=== PATIENT | female | born 1935 | race Caucasian/White ===

== ENCOUNTER 2017-01-27 10:54 | Observation (INO) ==
[2017-01-27] MEDS ORDERED: SODIUM CHLORIDE 0.9% 1,000 ML IV SCH (11:30)
[2017-01-27 11:37] LABS: Basophils % 0.5 % (0.0-0.8); Eosinophils # 0.3 10*3/uL (0.0-0.87); Eosinophils % 4.7 % (0.00-10.9); Hematocrit 44.5 VOL% (35.7-47.0); Hemoglobin 14.7 GM/DL (12.0-16.0); Immature Granulocytes % 0.3 %; Immature Granulocytes Absolute 0.02 #; Lymphocytes # 1.9 10*3/uL (1.4-4.0); Lymphocytes % 27.9 % (21.3-54.2); Mean Corpuscular Hemoglobin 31 PG (27-34); Mean Corpuscular Volume 94.1 FL (87-102); Mean Platelet Volume 8.6 FL (9.6-12.0); Monocytes # 0.5 10*3/uL (0.11-0.8); Monocytes % 6.9 % (1.7-12.7); Neutrophils % 59.7 % (38.7-73.9); Platelet Count 208 T/CUMM (130-400); Red Blood Count 4.73 MC/CUMM (3.8-5.5); White Blood Count 6.6 T/CUMM (4-12)
[2017-01-27 11:55] LABS: PT Patient Result 10.2 SECS
--- NOTE | 2017-01-27 12:26 | History and Physical Update ---
History and Physical Update - Physical Exam Mental Status: alert and oriented Heart: regular rate and rhythm Lung: clear to auscultation Abdomen: within normal limits Vitals: within normal limits History and Physical Changes: Patient is an 81-year-old female with dementia who requires gastrostomy tube feeding for nutritional support. Her current PEG tube has continued to leak from the gastrostomy site with no sign of infection. We replaced her PEG tube with a larger tube and it continues to leak. I have offered PEG placement at a different location given persistent drainage from this.
[2017-01-27] MEDS ORDERED: CIPROFLOXACIN INJ 400 MG in PREMIX 1 EACH IV ONE (12:30)
--- NOTE | 2017-01-27 12:46 | Operative Note ---
Date of procedure: 01/27/17 Pre-op diagnosis: Inability to eat, dementia Procedure: Procedure: Esophagogastroduodenoscopy with percutaneous endoscopic gastrostomy placement Brief clinical abstract: Patient is an 81-year-old female with dementia and previous CVA. She requires gastrostomy tube feedings for nutritional support. She has had persistent leakage at her PEG tube site with no sign of infection. We changed to a larger sized 24 Prydeinig tube but drainage has persisted. I have offered changing site to a different location and family agrees. Indication for procedure: Inability to eat, gastrocutaneous fistula drainage Endoscopic findings:[After informed consent was obtained, the patient was placed in the left lateral decubitus position. The internal balloon of the previous PEG tube was deflated and tube removed. The gastroscope was inserted in the upper esophagus under direct vision with no resistance encountered. Esophageal mucosa appeared normal with squamocolumnar junction sharply demarcated at the diaphragmatic indentation. The endoscope was advanced in the stomach which was carefully examined including retroflexed view of the cardia and fundus with no abnormality other than site of previous PEG tube noted. The pyloric channel, duodenal bulb, second and third portion of the duodenum appeared normal. The endoscope was withdrawn back into the stomach. Site for gastrostomy tube in a different location was determined using external indentation and endoscopic transillumination. This was to the left of the previous site. Sterile field was created over the anterior abdomen at that location. 5 cc of 1% lidocaine was injected subcutaneously down the level of the gastric wall. An approximately 5 mm superficial transverse incision was made with scalpel. Cook 20 Prydeinig gastrostomy tube was placed with pull technique without difficulty. Tube was secured with the external bumper at the 2 cm dylan on the skin surface. A dressing was applied to the new PEG tube site as well as the old site. She appeared to tolerate the procedure well. Impression: #1 status post percutaneous endoscopic gastrostomy tube placement #2 previous PEG tube removed Recommendations: Plan observation overnight on IV antibiotics. Probably start tube feedings tomorrow morning if stable. Anesthesia: GETA (tiva) Surgeon / Physician: Natalio Ellington Estimated blood loss: minimal Specimens: none sent Condition: stable Disposition: post procedure unit Results - Labs CBC & BMP: 01/27/17 11:25 Discharge Plan - Discharge Medications No Action Lovastatin 20 mg PO DAILY Melatonin 5 mg PO DAILY Lactobacillus Combo No.6 [Probiotic Complex] 1 each PO BID Cranberry 500 mg PO BID Loratadine Tab [Claritin Tab] 10 mg PO DAILY Acetaminophen Tab [Tylenol Tab] 500 mg PO BID Topiramate [Trokendi XR] 50 mg PO DAILY Donepezil HCl 5 mg PO DAILY Sucralfate Tab [Carafate Tab] 1 gm PO TIDAC Omeprazole 40 mg PO DAILY Potassium Chloride 10 meq PO DAILY Metoprolol Tartrate 25 mg PO DAILY traMADol TAB [Ultram] 50 mg PO QID PRN PRN Reason: Pain - Follow Up or Referral - Forms/Instructions
--- NOTE | 2017-01-27 12:59 | Anesthesia Post-Op ---
Anesthesia Post OP - Post Ansesthetic Evaluation Patient seen in post op: Yes Resp: within normal limits CV: within normal limits Mental: within normal limits Temp: within normal limits [id number]: within normal limits Nausea and Vomiting: within normal limits Pain: within normal limits
[2017-01-27] MEDS ORDERED: MAGNESIUM HYDROXIDE SUSP 30 ML UDCUP PO PRN (13:58)
[2017-01-27] MEDS ORDERED: ONDANSETRON 4 MG/2 ML VIAL IV PRN (13:58)
--- NOTE | 2017-01-27 14:03 | Gastrointestinal H&P ---
Assessment and Plan (1) Dysphagia as late effect of cerebrovascular accident (CVA) Status: Acute Assessment and plan: 01/27-admitted for observation post EGD and new PEG placement. Prior PEG removed due to continued leakage. Maintain abdominal binder, consult dietitian. May start tube feedings tomorrow morning. Pureed diet tonight. May have Donna PRN pain. Continue IV antibiotics. If stable, will plan for tentative discharge tomorrow morning. Plan an addendum to followed by Dr. Ellington. Current Visit: Yes History of Present Illness Chief complaint: PEG replacment History of present illness: Ms. Tavarez is a 81 year old female who was admitted to the hospital for observation following PEG tube replacement. Pt has a history of as well as CVA in the past with oropharyngeal dysphagia and requirement of PEG tube placement. Patient was initially seen on 01/05 with complaints of leaking PEG tube site, which was initially placed approximately year ago at [facility] in [place]. At that time, the external bumper was noted to be migrated upwards and was retightened in superglue to the tube. Patient began developed increased leakage around the PEG tube site which appeared to be gastric contents as well as some erythema without purulent discharge. On 01/16/17, patient underwent non-endoscopic PEG tube placement however on 01/22 patient's family called stating that the PEG tube continued to leak. She was then brought in today and underwent PEG tube placement endoscopically with new PEG tube site. Patient is being admitted for observation overnight and IV antibiotics. Plans at this time are to start tube feedings tomorrow morning and if patient is stable and tolerating well, will plan to discharge home at that time. Home Medications Medication Instructions Recorded Confirmed Type Acetaminophen Tab [Tylenol Tab] 500 mg PO BID 01/05/17 01/27/17 History Cranberry 500 mg PO BID 01/05/17 01/27/17 History Donepezil HCl 5 mg PO DAILY 01/05/17 01/27/17 History Lactobacillus Combo No.6 1 each PO BID 01/05/17 01/27/17 History [Probiotic Complex] Loratadine Tab [Claritin Tab] 10 mg PO DAILY 01/05/17 01/27/17 History Lovastatin 20 mg PO DAILY 01/05/17 01/27/17 History Melatonin 5 mg PO DAILY 01/05/17 01/27/17 History Metoprolol Tartrate 25 mg PO DAILY 01/05/17 01/27/17 History Omeprazole 40 mg PO DAILY 01/05/17 01/27/17 History Potassium Chloride 10 meq PO DAILY 01/05/17 01/27/17 History Sucralfate Tab [Carafate Tab] 1 gm PO TIDAC 01/05/17 01/27/17 History Topiramate [Trokendi XR] 50 mg PO DAILY 01/05/17 01/27/17 History traMADol TAB [Ultram] 50 mg PO QID PRN 01/05/17 01/27/17 History Allergies Allergy/AdvReac Type Severity Reaction Status Date / Time Cefadroxil Allergy Verified 01/16/17 10:52 Hydromorphone [From Dilaudid] Allergy Verified 01/16/17 10:52 Hyoscyamine [From Levsin] Allergy Verified 01/16/17 10:52 meperidine [From Demerol] Allergy Verified 01/16/17 10:52 metoclopramide [From Reglan] Allergy Verified 01/16/17 10:52 Morpholine Analogues Allergy Verified 01/16/17 10:52 piroxicam [From Feldene] Allergy Verified 01/16/17 10:52 Zolpidem [From Ambien] Allergy Verified 01/16/17 10:52 bananas Allergy Uncoded 01/27/17 14:55 Medical,Surgical,& Family Hx - Medical History Cardio: History of: Hypertension Psychological: History of: Depression Neurology: History of: Cerebrovascular Accident (2013), Dementia No history of: Seizures HEENT: History of: Eye Problem (glasses), Dental Problems (dentures), Glaucoma Endocrine: History of: Dyslipidemia Rheumatology: History of;: Gout, Rheumatoid Arthritis Respiratory: History of: COPD, Pneumonia Genitourinary: History of: Bladder Problem (bladder sling), Recurring Urinary Tract Infections (suprapubic catheter) Gastrointestinal: History of: Gastrointestinal Bleed, Hemorrhoids, GI Problems ( chronic constipation,) No history of: Bowel Obstruction Musculoskeletal: History of: Back/Neck Problems, Herniated Disk Hematology: History of: Anemia (iron def), Clotting Problems (dvts) - Surgical History Abdominal Surgeries: Surgical HX of: Abdominal Surgery (PEG tube placed), Cholecystectomy, EGD Reproductive Surgeries: Surgical HX of;: Tubal Ligation - Family History Family History: Reports;: Family Cancer (son - prostrate, daughter - breast,) Denies;: Family Anesthesia Reaction, Family Diabetes, Family Psychiatric Problems, Family Stroke - Social History Smoking Status: Never smoker 12 point system: reviewed and no additional remarkable complaints except as stated Exam - Constitutional Vitals: Period Temp Pulse Resp BP Sys/Lugo Pulse Ox Last 24 Hr 98.4 F 57-67 13-24 144-165/56-63 92-98 General appearance: normal weight, no acute distress - Head Head exam: Present: normal inspection, normocephalic - Eye Eye exam: Present: other (Lids and conjunctival are unremarkable). Absent: scleral icterus - ENT ENT exam: Present: normal exam, normal oropharynx - Neck Neck exam: Present: normal inspection - Respiratory Respiratory exam: Present: clear to auscultation bilaterally. Absent: rales, rhonchi, wheezes - Cardiovascular Cardiovascular exam: Present: regular rate and rhythm. Absent: diastolic murmur , JVD, systolic murmur - GI/Abdominal GI/Abdominal exam: Present: normal bowel sounds, tenderness, soft. Absent: ascites, distended, mass, Faith's sign - Extremities Exam Extremities exam: Present: normal inspection, full ROM - Back Exam Back exam: Present: normal inspection - Neurological Exam Neurological exam: Present: alert, oriented X3 - Psychiatric Psychiatric exam: Present: normal affect, normal mood - Skin Skin exam: Present: normal color, warm, dry Results - Labs CBC & BMP: 01/27/17 11:25
[2017-01-27] MEDS: SUCRALFATE 1 GM TABLET PO SCH (16:59)
[2017-01-27] MEDS ORDERED: NON-FORMULARY MEDICATION (Cranberry [Cranberry] 500 MG) PO SCH (21:00)
[2017-01-27] MEDS: ACETAMINOPHEN 500 MG TABLET PO SCH (21:29)
[2017-01-27] MEDS: LACTOBACILLUS ACIDOPHILUS/BULGARICUS CAPLET PO SCH (21:29)
[2017-01-28] MEDS: CIPROFLOXACIN INJ 400 MG in PREMIX 1 EACH IV SCH ×2 (00:54→12:54)
[2017-01-28 08:14] LABS: Calcium 9.6 MG/DL (8.5-10.1); Magnesium 2.3 MG/DL (1.8-2.4); Phosphorous 3.6 MG/DL (2.5-4.9); Potassium 3.7 MMOL/L (3.5-5.1); Prealbumin 24.8 MG/DL (20-40)
--- NOTE | 2017-01-28 08:56 | Discharge Summary ---
Hospital Course - Hospital Course Hospital Course: Ms. Tavarez was admitted yesterday to the hospital following EGD and replacement of PEG tube at new site. Patient has a history of CVA with oropharyngeal dysphagia and had a PEG tube placed in [place] a year ago. She has had continued episodes of leakage from the PEG tube despite attempts to correct this including PEG tube replacement. She underwent EGD on yesterday to obtain new PEG tube site. She tolerated this well. She was admitted for observation overnight and is doing well this morning. She is having minimal abdominal pain. There is no redness, drainage or leaking from the site. Dietitian was consulted and tube feedings were ordered. These are to be resumed this morning. She is afebrile. She is tolerating very small amounts of pured diet and has done well with this. We will plan to discharge her home later today following completion of her IV antibiotics. Diagnosis - Discharge Diagnosis (1) Dysphagia as late effect of cerebrovascular accident (CVA) Status: Acute Discharge Plan - Discharge Data Disposition: Disch To Home/Self Care Condition at Discharge: Stable Discharge Diet: advance to your usual diet Activity: resume usual activities as tolerated Hygiene: no restrictions Driving: no restrictions Contact your physician if you experience:: fever over 101, Nausea/Vomiting, pain uncontrolled by pain medications - Discharge Medications No Action Lovastatin 20 mg PO DAILY Melatonin 10 mg PO DAILY Ipratropium [place] 2 sprays NS BID Cholecalciferol (Vitamin D3) [Vitamin D3] 5,000 unit PO BEDTIME Cyanocobalamin (Vitamin B-12) [Vitamin B-12] 2,500 mcg SL DAILY Multivit-Min/Iron/Folic/Lutein [Centrum Silver Women Tablet] 1 each PO DAILY Fluticasone Propionate [Flonase Allergy Relief] 2 spray BOTH NARES DAILY Ipratropium/Albuterol Sulfate [Iprat-Albut 0.5-3(2.5) mg/3 ml] 3 ml IH QID Aspirin 325 mg PO DAILY Lactobacillus Combo No.6 [Probiotic Complex] 1 each PO BID Cranberry 500 mg PO BID Loratadine Tab [Claritin Tab] 10 mg PO DAILY Acetaminophen Tab [Tylenol Tab] 500 mg PO BID Topiramate [Trokendi XR] 50 mg PO BEDTIME Donepezil HCl 5 mg PO DAILY Sucralfate Tab [Carafate Tab] 1 gm PO QID Omeprazole 40 mg PO DAILY Potassium Chloride 10 meq PO BEDTIME Metoprolol Tartrate 25 mg PO DAILY traMADol TAB [Ultram] 50 mg PO TID Magnesium Oxide [Magnesium] 400 mg PO BEDTIME - Follow Up or Referral - Forms/Instructions Exam - Constitutional Vitals: Period Temp Pulse Resp BP Sys/Lugo Pulse Ox Last 24 Hr 97.3 F-98.4 F 57-77 13-24 106-165/47-63 92-98 General appearance: normal weight, no acute distress - Head Head exam: Present: normal inspection, normocephalic - Eye Eye exam: Present: other (Lids and conjunctive are unremarkable). Absent: scleral icterus - ENT ENT exam: Present: normal exam, normal oropharynx - Neck Neck exam: Present: normal inspection - Respiratory Respiratory exam: Present: clear to auscultation bilaterally. Absent: rales, rhonchi, wheezes - Cardiovascular Cardiovascular exam: Present: regular rate and rhythm. Absent: diastolic murmur , JVD, systolic murmur - GI/Abdominal GI/Abdominal exam: Present: normal bowel sounds, tenderness (Mild), soft. Absent: ascites, distended, mass, organomegaly - Extremities Exam Extremities exam: Present: normal inspection, full ROM - Back Exam Back exam: Present: normal inspection - Neurological Exam Neurological exam: Present: alert, oriented X3 - Psychiatric Psychiatric exam: Present: normal affect, normal mood - Skin Skin exam: Present: normal color, warm, dry Discharge Results Labs on day of discharge: Labs from last 24 hours 01/28/17 01/27/17 01/27/17 07:06 11:25 11:25 WBC 6.6 RBC 4.73 Hgb 14.7 Hct 44.5 MCV 94.1 MCH 31 MCHC 33.0 RDW 13.0 Plt Count 208 MPV 8.6 L Neut % (Auto) 59.7 Lymph % (Auto) 27.9 [place] % (Auto) 6.9 Eos % (Auto) 4.7 Baso % (Auto) 0.5 Neut # (Auto) 4.0 Lymph # (Auto) 1.9 [place] # (Auto) 0.5 Eos # (Auto) 0.3 Baso # (Auto) 0.0 Immature Gran % 0.3 Nucleated RBC % 0.0 Immature Gran # 0.02 Nucleated RBCs # 0.00 Immature Plt Fraction 0.0 INR 1.0 PT Patient/Control Mix 10.2 Sodium 143 Potassium 3.7 Chloride 110 H Carbon Dioxide 25 Anion Gap 11.7 BUN 17 Creatinine 0.80 GFR Calculation 62 BUN/Creatinine Ratio 21.00 H Glucose 84 Calculated Osmolality 285.0 Calcium 9.6 Phosphorus 3.6 Magnesium 2.3 Prealbumin 24.8 DS: Provider Date of admission: 01/27/17 13:42 Primary care physician: . No PCP Attending physician on admission: Natalio Zavala Discharging clinician: Deric Salas Expected date of discharge: 01/28/17
[2017-01-28] MEDS ORDERED: METOPROLOL TARTRATE 25 MG TABLET PO SCH (09:00)
[2017-01-28] MEDS ORDERED: LORATADINE 10 MG TABLET PO SCH (09:00)
[2017-01-28] MEDS ORDERED: POTASSIUM CHLORIDE 10 MEQ TABLET PO SCH (09:00)
[2017-01-28] MEDS ORDERED: NON-FORMULARY MEDICATION (Melatonin [Melatonin] 5 MG) PO SCH (09:00)
[2017-01-28] MEDS ORDERED: DONEPEZIL 5 MG TABLET PO SCH (09:00)
[2017-01-28] MEDS ORDERED: TOPIRAMATE 25 MG TABLET PO SCH (09:00)
[2017-01-28] MEDS ORDERED: LOVASTATIN 20 MG TABLET PO SCH (09:00)
[2017-01-28] MEDS ORDERED: PANTOPRAZOLE 40 MG TABLET PO SCH (09:00)
[2017-01-28] MEDS: SUCRALFATE 1 GM TABLET PO SCH ×2 (09:29→11:54)
[2017-01-28] MEDS: LACTOBACILLUS ACIDOPHILUS/BULGARICUS CAPLET PO SCH (09:29)
[2017-01-28] MEDS: ACETAMINOPHEN 500 MG TABLET PO SCH (09:29)
[2017-01-28 13:17] VITALS: BP 136/72
[2017-01-28] MEDS ORDERED: TRAMADOL 50 MG PO SCH (15:00)
[2017-01-28] MEDS ORDERED: IPRATROPIUM IH SCH (17:00)
[2017-01-28] MEDS ORDERED: ALBUTEROL SULFATE IH SCH (17:00)
[2017-01-28] MEDS ORDERED: [UNRECOGNIZED DRUG - OTHER] IH SCH (17:00)
[2017-01-28] MEDS ORDERED: IPRATROPIUM BROMIDE NS SCH (21:00)
[2017-01-28] MEDS ORDERED: NON-FORMULARY MEDICATION (Magnesium Oxide [Magnesium] 400 MG) PO SCH (21:00)
[2017-01-28] MEDS ORDERED: NON-FORMULARY MEDICATION (Cholecalciferol (Vitamin D3) [Vitamin D3] 5,000 UNIT) PO SCH (21:00)
[2017-01-29] MEDS ORDERED: MULTIVIT MIN PO SCH (09:00)
[2017-01-29] MEDS ORDERED: NON-FORMULARY MEDICATION (Aspirin [Aspirin] 325 MG) PO SCH (09:00)
[2017-01-29] MEDS ORDERED: NON-FORMULARY MEDICATION (Fluticasone Propionate [Flonase Allergy Relief] 2 SPRAY) BOTH NARES SCH (09:00)
[2017-01-29] MEDS ORDERED: [UNRECOGNIZED DRUG - OTHER] PO SCH (09:00)
[2017-01-29] MEDS ORDERED: NON-FORMULARY MEDICATION (Cyanocobalamin (Vitamin B-12) [Vitamin B-12] 2,500 MCG) SL SCH (09:00)
[2017-01-29] MEDS ORDERED: FOLIC PO SCH (09:00)
[2017-01-29] MEDS ORDERED: IRON PO SCH (09:00)
== END 2017-01-28 15:39 | disposition home or self-care (01) ==
LOC: N.GILAB 10:54 → N.5E 10:54
PROVIDERS: ADMIT Internal Medicine Gastroenterology; ATTEND Internal Medicine Gastroenterology
PROC: EGDWPEG (ICD-10-PCS; 2017-01-27 11:05)

== ENCOUNTER 2017-02-19 11:46 | Inpatient (IN) ==
[2017-02-19] MEDS ORDERED: LEVOFLOXACIN INJ 750 MG in PREMIX 1 EACH IV STA (12:11)
[2017-02-19] MEDS ORDERED: SODIUM CHLORIDE 0.9% 500 ML IV STA (12:11)
[2017-02-19 13:51] LABS: Basophils % 0.1 % (0.0-0.8); Eosinophils % 0.1 % (0.00-10.9); Hematocrit 42.1 VOL% (35.7-47.0); Hemoglobin 14.1 GM/DL (12.0-16.0); Immature Granulocytes % 0.9 %; Immature Granulocytes Absolute 0.18 #; Lymphocytes # 1.3 10*3/uL (1.4-4.0); Lymphocytes % 6.4 % (21.3-54.2); Mean Corpuscular HGB Conc 33.5 GM/DL (32-36); Mean Corpuscular Hemoglobin 31 PG (27-34); Mean Corpuscular Volume 91.7 FL (87-102); Mean Platelet Volume 9.1 FL (9.6-12.0); Monocytes # 0.8 10*3/uL (0.11-0.8); Monocytes % 3.6 % (1.7-12.7); Neutrophils # 18.7 10*3/uL (1.4-7.4); Neutrophils % 88.9 % (38.7-73.9); Platelet Count 216 T/CUMM (130-400); Red Blood Count 4.59 MC/CUMM (3.8-5.5); Red Cell Distribution Width 13.2 % (9.3-17.3)
[2017-02-19 14:00] LABS: PT Patient Result 10.4 SECS; Partial Thromboplastin Time 27.4 SECS (0-40)
[2017-02-19] MEDS ORDERED: LEVOFLOXACIN INJ 150 ML IV ONE (14:12)
[2017-02-19 14:15] LABS: Alanine Aminotransferase 22 U/L (13-56); Albumin 2.8 G/DL (3.4-5.0); Alkaline Phosphatase 87 U/L (45-117); Aspartate Amino Transferase 20 U/L (0-37); Blood Urea Nitrogen 25 MG/DL (7-18); Calcium 9.9 MG/DL (8.5-10.1); Glucose 111 MG/DL (74-106); Osmolality,Calculated 274.1 MOS/KG (273-304); Potassium 4.4 MMOL/L (3.5-5.1); Sodium 135 MMOL/L (136-145); Total Protein 6.5 G/DL (6.4-8.3); Troponin I Only < 0.015 NG/ML (0.00-0.045)
[2017-02-19 14:46] LABS: Platelet Estimate Normal
[2017-02-19 14:59] LABS: Band Neutrophils 5 % (0-10); Lymphocytes 3 % (20-55); Segmented Neutrophils 89 % (50-85); Total Cells Counted 100
[2017-02-19] MEDS ORDERED: SODIUM CHLORIDE 0.9% 1,600 ML IV ONE (16:45)
[2017-02-19] MEDS ORDERED: ONDANSETRON 4 MG/2 ML VIAL IV PRN (17:31)
[2017-02-19] MEDS ORDERED: ACETAMINOPHEN 325 MG TABLET PO PRN (17:31)
[2017-02-19] MEDS ORDERED: VANCOMYCIN INJ 750 MG in SODIUM CHLORIDE 0.9% 250 ML IV SCH (18:30)
[2017-02-19] MEDS: SODIUM CHLORIDE 0.9% 1,000 ML IV SCH (21:00)
[2017-02-19 23:28] LABS: Apearance,Urine CLOUDY (Clear); Bacteria,Urine Many /HPF (Few); Bilirubin,Urine Negative (Negative); Blood, Urine Negative (Negative); Glucose,Urine (UA) Negative (Negative); Ketones,Urine 5 mg/dL (Negative); Nitrite,Urine Negative (Negative); Protein,Urine Negative; Urine Color Amber (Yellow); Urine Specific Gravity 1.016 (1.001-1.035); Urine Urobilinogen < 2.0 EU/DL (0.2-1.0); WBC,Urine 78 /HPF (0-6)
[2017-02-20 06:47] LABS: Basophils % 0.1 % (0.0-0.8); Eosinophils # 0.3 10*3/uL (0.0-0.87); Eosinophils % 2.5 % (0.00-10.9); Hematocrit 33.3 VOL% (35.7-47.0); Hemoglobin 11.2 GM/DL (12.0-16.0); Immature Granulocytes % 0.7 %; Immature Granulocytes Absolute 0.09 #; Lymphocytes # 0.9 10*3/uL (1.4-4.0); Lymphocytes % 6.8 % (21.3-54.2); Mean Corpuscular HGB Conc 33.6 GM/DL (32-36); Mean Corpuscular Hemoglobin 31 PG (27-34); Mean Corpuscular Volume 92.2 FL (87-102); Mean Platelet Volume 9.5 FL (9.6-12.0); Monocytes # 0.5 10*3/uL (0.11-0.8); Monocytes % 3.9 % (1.7-12.7); Neutrophils # 10.8 10*3/uL (1.4-7.4); Platelet Count 152 T/CUMM (130-400); Red Blood Count 3.61 MC/CUMM (3.8-5.5); Red Cell Distribution Width 13.3 % (9.3-17.3); White Blood Count 12.6 T/CUMM (4-12)
[2017-02-20 07:07] LABS: Calcium 8.6 MG/DL (8.5-10.1); Magnesium 1.9 MG/DL (1.8-2.4); Osmolality,Calculated 283.1 MOS/KG (273-304); Potassium 3.8 MMOL/L (3.5-5.1)
[2017-02-20 07:33] LABS: Band Neutrophils 5 % (0-10); Eosinophils 2 % (0-10); Hypochromasia Slight; Lymphocytes 3 % (20-55); Platelet Estimate Adequate; Polychromasia Slight; Segmented Neutrophils 88 % (50-85); Total Cells Counted 100
[2017-02-20] MEDS: ALBUTEROL/IPRATROPIUM 3 ML NEB RESP TX SCH ×2 (14:09→21:11)
[2017-02-20] MEDS: VANCOMYCIN INJ 750 MG in SODIUM CHLORIDE 0.9% 250 ML IV SCH ×2 (14:21→23:14)
[2017-02-20] MEDS: SODIUM CHLORIDE 0.9% 1,000 ML IV SCH (14:22)
[2017-02-20] MEDS: LEVOFLOXACIN INJ 750 MG in PREMIX 1 EACH IV SCH (21:10)
[2017-02-21] MEDS: ALBUTEROL/IPRATROPIUM 3 ML NEB RESP TX SCH ×4 (00:31→19:46)
[2017-02-21] MEDS: PANTOPRAZOLE 40 MG TABLET PO SCH ×2 (01:02→16:31)
[2017-02-21] MEDS: LACTOBACILLUS ACIDOPHILUS/BULGARICUS CAPLET PO SCH ×3 (01:03→21:06)
[2017-02-21] MEDS: SUCRALFATE 1 GM TABLET PO SCH ×3 (01:46→21:07)
[2017-02-21] MEDS: MAGNESIUM OXIDE 400 MG TABLET PO SCH ×2 (01:46→21:07)
[2017-02-21] MEDS: Cranberry [Cranberry] 500 MG PO SCH ×3 (01:46→21:39)
[2017-02-21] MEDS: MELATONIN 3 MG TABLET PO SCH ×2 (01:47→21:07)
[2017-02-21] MEDS: CHOLECALCIFEROL 1,000 UNIT TABLET PO SCH ×2 (01:47→21:06)
[2017-02-21 04:01] LABS: Basophils % 0.2 % (0.0-0.8); Eosinophils # 0.1 10*3/uL (0.0-0.87); Eosinophils % 1.9 % (0.00-10.9); Hematocrit 31.1 VOL% (35.7-47.0); Hemoglobin 10.3 GM/DL (12.0-16.0); Immature Granulocytes % 0.8 %; Immature Granulocytes Absolute 0.05 #; Lymphocytes # 0.5 10*3/uL (1.4-4.0); Lymphocytes % 8.7 % (21.3-54.2); Mean Corpuscular HGB Conc 33.1 GM/DL (32-36); Mean Corpuscular Hemoglobin 31 PG (27-34); Mean Corpuscular Volume 92.8 FL (87-102); Mean Platelet Volume 8.9 FL (9.6-12.0); Monocytes # 0.3 10*3/uL (0.11-0.8); Neutrophils # 5.2 10*3/uL (1.4-7.4); Neutrophils % 83.4 % (38.7-73.9); Platelet Count 146 T/CUMM (130-400); Red Blood Count 3.35 MC/CUMM (3.8-5.5); Red Cell Distribution Width 13.4 % (9.3-17.3); White Blood Count 6.2 T/CUMM (4-12)
[2017-02-21 04:22] LABS: Calcium 8.5 MG/DL (8.5-10.1); Potassium 3.2 MMOL/L (3.5-5.1)
[2017-02-21] MEDS: SODIUM CHLORIDE 0.9% 1,000 ML IV SCH (05:10)
[2017-02-21] MEDS ORDERED: GLUCAGON 1 MG VIAL IM PRN (09:18)
[2017-02-21] MEDS ORDERED: DEXTROSE 50% 25 GM/50 ML VIAL IV PRN (09:18)
[2017-02-21] MEDS: VANCOMYCIN INJ 750 MG in SODIUM CHLORIDE 0.9% 250 ML IV SCH (12:40)
[2017-02-21] MEDS: DEXTROSE 5% NACL 0.9% 1,000 ML IV SCH (12:40)
[2017-02-21] MEDS: MULTIVITAMIN (CENTRUM) TABLET PO SCH (16:30)
[2017-02-21] MEDS: DONEPEZIL 5 MG TABLET PO SCH (16:31)
[2017-02-21] MEDS: ASPIRIN EC 325 MG TABLET PO SCH (16:31)
[2017-02-21] MEDS: LOVASTATIN 20 MG TABLET PO SCH (16:31)
[2017-02-21] MEDS: CYANOCOBALAMIN 500 MCG TABLET PO SCH (16:37)
[2017-02-21] MEDS: INSULIN REGULAR 100 UNIT/ML SUBCUT SCH ×2 (17:24→21:07)
[2017-02-21] MEDS: LEVOFLOXACIN INJ 750 MG in PREMIX 1 EACH IV SCH (21:04)
[2017-02-22] MEDS: INSULIN REGULAR 100 UNIT/ML SUBCUT SCH ×4 (00:30→18:49)
[2017-02-22] MEDS: VANCOMYCIN INJ 750 MG in SODIUM CHLORIDE 0.9% 250 ML IV SCH ×2 (00:30→11:06)
[2017-02-22] MEDS: ALBUTEROL/IPRATROPIUM 3 ML NEB RESP TX SCH ×4 (02:46→19:24)
[2017-02-22] MEDS: DEXTROSE 5% NACL 0.9% 1,000 ML IV SCH ×2 (04:42→18:10)
[2017-02-22] MEDS: SODIUM CHLORIDE 0.9% 1,000 ML IV SCH (04:53)
[2017-02-22 08:03] LABS: Basophils % 0.2 % (0.0-0.8); Eosinophils # 0.2 10*3/uL (0.0-0.87); Eosinophils % 4.4 % (0.00-10.9); Hematocrit 31.6 VOL% (35.7-47.0); Hemoglobin 10.4 GM/DL (12.0-16.0); Immature Granulocytes % 0.4 %; Immature Granulocytes Absolute 0.02 #; Lymphocytes # 0.6 10*3/uL (1.4-4.0); Mean Corpuscular HGB Conc 32.9 GM/DL (32-36); Mean Corpuscular Hemoglobin 30 PG (27-34); Mean Corpuscular Volume 92.4 FL (87-102); Monocytes # 0.4 10*3/uL (0.11-0.8); Monocytes % 7.2 % (1.7-12.7); Neutrophils # 3.8 10*3/uL (1.4-7.4); Neutrophils % 76.8 % (38.7-73.9); Platelet Count 205 T/CUMM (130-400); Red Blood Count 3.42 MC/CUMM (3.8-5.5); Red Cell Distribution Width 13.4 % (9.3-17.3)
[2017-02-22 08:29] LABS: Osmolality,Calculated 288.7 MOS/KG (273-304); Potassium 3.5 MMOL/L (3.5-5.1)
[2017-02-22] MEDS: ASPIRIN EC 325 MG TABLET PO SCH (10:45)
[2017-02-22] MEDS: CYANOCOBALAMIN 500 MCG TABLET PO SCH (10:46)
[2017-02-22] MEDS: SUCRALFATE 1 GM TABLET PO SCH ×2 (10:46→21:27)
[2017-02-22] MEDS: MULTIVITAMIN (CENTRUM) TABLET PO SCH (10:47)
[2017-02-22] MEDS: LOVASTATIN 20 MG TABLET PO SCH (10:47)
[2017-02-22] MEDS: PANTOPRAZOLE 40 MG TABLET PO SCH (10:47)
[2017-02-22] MEDS: DONEPEZIL 5 MG TABLET PO SCH (10:47)
[2017-02-22] MEDS: LACTOBACILLUS ACIDOPHILUS/BULGARICUS CAPLET PO SCH ×2 (10:48→21:27)
[2017-02-22] MEDS: Cranberry [Cranberry] 500 MG PO SCH ×2 (18:53→23:57)
[2017-02-22] MEDS: LEVOFLOXACIN INJ 750 MG in PREMIX 1 EACH IV SCH (21:25)
[2017-02-22] MEDS: CHOLECALCIFEROL 1,000 UNIT TABLET PO SCH (21:26)
[2017-02-22] MEDS: MAGNESIUM OXIDE 400 MG TABLET PO SCH (21:26)
[2017-02-22] MEDS: MELATONIN 3 MG TABLET PO SCH (21:27)
[2017-02-23] MEDS: INSULIN REGULAR 100 UNIT/ML SUBCUT SCH ×4 (00:03→18:26)
[2017-02-23] MEDS: VANCOMYCIN INJ 750 MG in SODIUM CHLORIDE 0.9% 250 ML IV SCH (00:03)
[2017-02-23] MEDS: ALBUTEROL/IPRATROPIUM 3 ML NEB RESP TX SCH ×4 (00:41→19:52)
[2017-02-23] MEDS: DEXTROSE 5% NACL 0.9% 1,000 ML IV SCH (06:40)
[2017-02-23 08:17] LABS: Calcium 8.2 MG/DL (8.5-10.1); Magnesium 1.5 MG/DL (1.8-2.4); Osmolality,Calculated 296.1 MOS/KG (273-304); Phosphorous 1.6 MG/DL (2.5-4.9); Potassium 3.3 MMOL/L (3.5-5.1); Prealbumin 11.9 MG/DL (20-40)
[2017-02-23] MEDS: ASPIRIN EC 325 MG TABLET PO SCH (09:58)
[2017-02-23] MEDS: DONEPEZIL 5 MG TABLET PO SCH (09:58)
[2017-02-23] MEDS: METOPROLOL TARTRATE 25 MG TABLET PO SCH (09:58)
[2017-02-23] MEDS: LOVASTATIN 20 MG TABLET PO SCH (09:58)
[2017-02-23] MEDS: SUCRALFATE 1 GM TABLET PO SCH (09:58)
[2017-02-23] MEDS: PANTOPRAZOLE 40 MG TABLET PO SCH (09:59)
[2017-02-23] MEDS: LACTOBACILLUS ACIDOPHILUS/BULGARICUS CAPLET PO SCH (09:59)
[2017-02-23] MEDS: MULTIVITAMIN (CENTRUM) TABLET PO SCH (09:59)
[2017-02-23] MEDS: CYANOCOBALAMIN 500 MCG TABLET PO SCH (09:59)
[2017-02-23] MEDS ORDERED: MAGNESIUM SULF IV ONE (11:00)
[2017-02-23] MEDS ORDERED: POTASSIUM CHLORIDE IV ONE (11:00)
[2017-02-23] MEDS ORDERED: POTASSIUM PHOSPHATE IV ONE (11:00)
[2017-02-23] MEDS ORDERED: [UNRECOGNIZED DRUG - OTHER] IV ONE (11:00)
[2017-02-23] MEDS ORDERED: MAGNESIUM SULF RIDER 2 GM in PREMIX 1 EACH IV ONE (13:06)
[2017-02-23] MEDS ORDERED: POTASSIUM CHLORIDE 20 MEQ TABLET PO ONE (13:06)
[2017-02-23] MEDS: AMPICILLIN 500 MG CAPSULE PEG SCH ×2 (14:54→17:57)
[2017-02-23] MEDS ORDERED: TOPIRAMATE 100 MG TABLET PO SCH (21:00)
[2017-02-24] MEDS: MAGNESIUM OXIDE 400 MG TABLET PO SCH (00:02)
[2017-02-24] MEDS: LACTOBACILLUS ACIDOPHILUS/BULGARICUS CAPLET PO SCH ×2 (00:02→09:51)
[2017-02-24] MEDS: MELATONIN 3 MG TABLET PO SCH (00:02)
[2017-02-24] MEDS: SUCRALFATE 1 GM TABLET PO SCH ×2 (00:04→09:51)
[2017-02-24] MEDS: AMPICILLIN 500 MG CAPSULE PEG SCH ×3 (00:05→14:59)
[2017-02-24] MEDS: CHOLECALCIFEROL 1,000 UNIT TABLET PO SCH (00:05)
[2017-02-24] MEDS: ALBUTEROL/IPRATROPIUM 3 ML NEB RESP TX SCH ×3 (00:29→12:17)
[2017-02-24] MEDS: INSULIN REGULAR 100 UNIT/ML SUBCUT SCH ×3 (00:30→12:17)
[2017-02-24 07:43] LABS: Calcium 8.4 MG/DL (8.5-10.1); Magnesium 2.2 MG/DL (1.8-2.4); Osmolality,Calculated 287.6 MOS/KG (273-304); Potassium 3.9 MMOL/L (3.5-5.1)
[2017-02-24] MEDS: PANTOPRAZOLE 40 MG TABLET PO SCH (09:51)
[2017-02-24] MEDS: DONEPEZIL 5 MG TABLET PO SCH (09:51)
[2017-02-24] MEDS: MULTIVITAMIN (CENTRUM) TABLET PO SCH (09:51)
[2017-02-24] MEDS: METOPROLOL TARTRATE 25 MG TABLET PO SCH (09:51)
[2017-02-24] MEDS: LOVASTATIN 20 MG TABLET PO SCH (09:51)
[2017-02-24] MEDS: CYANOCOBALAMIN 500 MCG TABLET PO SCH (09:51)
[2017-02-24] MEDS: ASPIRIN EC 325 MG TABLET PO SCH (09:51)
[2017-02-24 11:26] VITALS: BP 154/97
== END 2017-02-24 13:58 | disposition home health service (06) | DRG 698 ==
LOC: N.ED 11:46 → N.EDINP 14:43 → SUATTDRO 14:43 → N.2E 16:46
PROVIDERS: ADMIT Internal Medicine; ATTEND Internal Medicine

== ENCOUNTER 2017-03-12 11:36 | Inpatient (IN) ==
[2017-03-12 12:36] LABS: Apearance,Urine CLOUDY (Clear); Bilirubin,Urine Small mg/dL (Negative); Blood, Urine Negative (Negative); Calcium Oxalate Crystals,Urine Occasional /HPF (Few); Glucose,Urine (UA) Negative (Negative); Hyaline Casts,Urine 7 /LPF (0-3); Ketones,Urine 5 mg/dL (Negative); Mucus,Urine Few /LPF (Occasional); Nitrite,Urine Negative (Negative); Protein,Urine 30 MG/DL; RBC,Urine 15 /HPF (0-4); Squamous Epithelial Cell,Urine Occasional /HPF (0-10); Urine Color Amber (Yellow); Urine Specific Gravity 1.028 (1.001-1.035); WBC,Urine 50 /HPF (0-6)
[2017-03-12] MEDS ORDERED: SODIUM CHLORIDE 0.9% 500 ML IV STA (12:56)
[2017-03-12] MEDS ORDERED: LEVOFLOXACIN INJ 500 MG in PREMIX 1 EACH IV STA (12:56)
[2017-03-12 13:20] LABS: Basophils # 0.1 10*3/uL (0.0-0.2); Basophils % 0.3 % (0.0-0.8); Eosinophils % 0.1 % (0.00-10.9); Hematocrit 43.5 VOL% (35.7-47.0); Hemoglobin 14.4 GM/DL (12.0-16.0); Immature Granulocytes % 2.9 %; Immature Granulocytes Absolute 0.74 #; Lymphocytes # 0.9 10*3/uL (1.4-4.0); Lymphocytes % 3.4 % (21.3-54.2); Mean Corpuscular HGB Conc 33.1 GM/DL (32-36); Mean Corpuscular Hemoglobin 31 PG (27-34); Mean Corpuscular Volume 92.8 FL (87-102); Monocytes # 1.2 10*3/uL (0.11-0.8); Monocytes % 4.7 % (1.7-12.7); Neutrophils # 22.3 10*3/uL (1.4-7.4); Neutrophils % 88.6 % (38.7-73.9); Platelet Count 344 T/CUMM (130-400); Red Blood Count 4.69 MC/CUMM (3.8-5.5); Red Cell Distribution Width 14.2 % (9.3-17.3); White Blood Count 25.2 T/CUMM (4-12)
[2017-03-12] MEDS ORDERED: LEVOFLOXACIN INJ 0 ML IV ONE (13:29)
[2017-03-12] MEDS ORDERED: LEVOFLOXACIN INJ 100 ML IV ONE (13:29)
[2017-03-12 13:42] LABS: Albumin 2.8 G/DL (3.4-5.0); Bilirubin,Total 0.6 MG/DL (0.2-1.0); Osmolality,Calculated 271.1 MOS/KG (273-304); Potassium 4.7 MMOL/L (3.5-5.1); Total Protein 6.7 G/DL (6.4-8.3)
[2017-03-12] MEDS ORDERED: SODIUM CHLORIDE 0.9% 1,650 ML IV ONE (13:43)
[2017-03-12 13:59] LABS: Band Neutrophils 15 % (0-10); Lymphocytes 12 % (20-55); Metamyelocytes 2 %; Myelocytes 1 %; Platelet Estimate Normal; Segmented Neutrophils 65 % (50-85); Total Cells Counted 100
[2017-03-12] MEDS ORDERED: traMADol 50 MG TABLET PO PRN (14:50)
[2017-03-12] MEDS ORDERED: guaiFENesin/DM ER 600-30 MG TABLET PO PRN (14:51)
[2017-03-12] MEDS ORDERED: LACTULOSE 20 GM/30 ML UDCUP PO PRN (14:51)
[2017-03-12] MEDS ORDERED: ONDANSETRON 4 MG/2 ML VIAL IV PRN (14:51)
[2017-03-12] MEDS ORDERED: NON-FORMULARY MEDICATION (Cranberry [Cranberry] 500 MG) PO SCH (15:00)
[2017-03-12] MEDS ORDERED: LEVOFLOXACIN INJ 500 MG in PREMIX 1 EACH IV SCH (16:30)
[2017-03-12] MEDS ORDERED: LEVOFLOXACIN INJ 500 MG in PREMIX 1 EACH IV ONE (17:00)
[2017-03-12] MEDS: SODIUM CHLORIDE 0.9% 1,000 ML IV SCH ×2 (17:07→23:37)
[2017-03-12] MEDS: ACETAMINOPHEN 500 MG TABLET PO SCH ×2 (17:15→21:30)
[2017-03-12] MEDS: SUCRALFATE 1 GM TABLET PO SCH ×2 (17:15→21:30)
[2017-03-12] MEDS ORDERED: MEROPENEM 500 MG in SODIUM CHLORIDE 0.9% 50 ML IV SCH (17:30)
[2017-03-12] MEDS ORDERED: VANCOMYCIN INJ 750 MG in SODIUM CHLORIDE 0.9% 150 ML IV SCH (18:30)
[2017-03-12] MEDS: ALBUTEROL/IPRATROPIUM 3 ML NEB RESP TX SCH (20:08)
[2017-03-12] MEDS: ENOXAPARIN 40 MG/0.4 ML SYRINGE SUBCUT SCH (21:28)
[2017-03-12] MEDS: IPRATROPIUM 0.03% NASAL SPRAY 30 ML BOTTLE BOTH NARES SCH (21:29)
[2017-03-12] MEDS: LACTOBACILLUS ACIDOPHILUS/BULGARICUS CAPLET PO SCH (21:30)
[2017-03-12] MEDS: MELATONIN 3 MG TABLET PO SCH (21:30)
[2017-03-12] MEDS: POTASSIUM CHLORIDE 10 MEQ TABLET PO SCH (21:30)
[2017-03-12] MEDS: TOPIRAMATE 25 MG TABLET PO SCH (21:30)
[2017-03-12] MEDS: MAGNESIUM OXIDE 400 MG TABLET PO SCH (21:30)
[2017-03-12] MEDS: CHOLECALCIFEROL 1,000 UNIT TABLET PO SCH (21:30)
[2017-03-12] MEDS: TERBINAFINE 1% CREAM 12 GM TUBE TOP SCH (21:30)
[2017-03-12 23:44] LABS: Apearance,Urine Slightly Hazy (Clear); Bacteria,Urine Occasional /HPF (Few); Bilirubin,Urine Negative (Negative); Blood, Urine Small mg/dL (Negative); Calcium Oxalate Crystals,Urine Occasional /HPF (Few); Glucose,Urine (UA) Negative (Negative); Ketones,Urine Negative (Negative); Nitrite,Urine Positive (Negative); Protein,Urine Negative; RBC,Urine 3 /HPF (0-4); Squamous Epithelial Cell,Urine Occasional /HPF (0-10); Urine Color Yellow (Yellow); Urine Specific Gravity 1.008 (1.001-1.035); Urine Urobilinogen < 2.0 EU/DL (0.2-1.0); WBC,Urine 18 /HPF (0-6)
[2017-03-13] MEDS: ALBUTEROL/IPRATROPIUM 3 ML NEB RESP TX SCH ×4 (01:06→19:48)
[2017-03-13] MEDS: SODIUM CHLORIDE 0.9% 1,000 ML IV SCH ×4 (05:34→20:08)
[2017-03-13 06:31] LABS: Basophils % 0.1 % (0.0-0.8); Eosinophils # 0.1 10*3/uL (0.0-0.87); Eosinophils % 0.5 % (0.00-10.9); Hematocrit 31.5 VOL% (35.7-47.0); Hemoglobin 10.4 GM/DL (12.0-16.0); Immature Granulocytes % 3.8 %; Immature Granulocytes Absolute 0.56 #; Lymphocytes # 0.8 10*3/uL (1.4-4.0); Lymphocytes % 5.3 % (21.3-54.2); Mean Corpuscular Hemoglobin 30 PG (27-34); Mean Corpuscular Volume 90.8 FL (87-102); Mean Platelet Volume 9.9 FL (9.6-12.0); Monocytes # 0.7 10*3/uL (0.11-0.8); Neutrophils # 12.7 10*3/uL (1.4-7.4); Neutrophils % 85.3 % (38.7-73.9); Platelet Count 218 T/CUMM (130-400); Red Blood Count 3.47 MC/CUMM (3.8-5.5); Red Cell Distribution Width 14.3 % (9.3-17.3); White Blood Count 14.8 T/CUMM (4-12)
[2017-03-13 06:52] LABS: Band Neutrophils 28 % (0-10); Lymphocytes 4 % (20-55); Segmented Neutrophils 64 % (50-85); Total Cells Counted 100
[2017-03-13 06:53] LABS: Burr Cells Slight; Hypochromasia 1+; Platelet Estimate Adequate
[2017-03-13 07:10] LABS: Calcium 8.8 MG/DL (8.5-10.1); Osmolality,Calculated 279.3 MOS/KG (273-304); Potassium 4.1 MMOL/L (3.5-5.1)
[2017-03-13] MEDS ORDERED: MEROPENEM 500 MG in SYRINGE 1 EACH IV SCH (08:00)
[2017-03-13] MEDS ORDERED: METOPROLOL TARTRATE 25 MG TABLET PO SCH (09:00)
[2017-03-13] MEDS: PANTOPRAZOLE 40 MG TABLET PO SCH (11:23)
[2017-03-13] MEDS: SUCRALFATE 1 GM TABLET PO SCH ×3 (11:23→20:09)
[2017-03-13] MEDS: MULTIVITAMIN (CENTRUM) TABLET PO SCH (11:23)
[2017-03-13] MEDS: ACETAMINOPHEN 500 MG TABLET PO SCH ×2 (11:24→22:44)
[2017-03-13] MEDS: CYANOCOBALAMIN 500 MCG TABLET PO SCH (11:24)
[2017-03-13] MEDS: LORATADINE 10 MG TABLET PO SCH (11:24)
[2017-03-13] MEDS: DONEPEZIL 5 MG TABLET PO SCH (11:24)
[2017-03-13] MEDS: ASPIRIN EC 325 MG TABLET PO SCH (11:25)
[2017-03-13] MEDS: LOVASTATIN 20 MG TABLET PO SCH (11:25)
[2017-03-13] MEDS: LACTOBACILLUS ACIDOPHILUS/BULGARICUS CAPLET PO SCH ×2 (11:25→22:43)
[2017-03-13] MEDS: FLUTICASONE 50 MCG NASAL SPRAY 16 GM BOTTLE BOTH NARES SCH (11:31)
[2017-03-13] MEDS: IPRATROPIUM 0.03% NASAL SPRAY 30 ML BOTTLE BOTH NARES SCH ×2 (11:32→22:43)
[2017-03-13] MEDS ORDERED: LEVOFLOXACIN INJ 250 MG in PREMIX 1 EACH IV SCH (17:00)
[2017-03-13] MEDS: CHOLECALCIFEROL 1,000 UNIT TABLET PO SCH (22:42)
[2017-03-13] MEDS: MELATONIN 3 MG TABLET PO SCH (22:42)
[2017-03-13] MEDS: TOPIRAMATE 25 MG TABLET PO SCH (22:43)
[2017-03-13] MEDS: TERBINAFINE 1% CREAM 12 GM TUBE TOP SCH (22:43)
[2017-03-13] MEDS: POTASSIUM CHLORIDE 10 MEQ TABLET PO SCH (22:43)
[2017-03-13] MEDS: MAGNESIUM OXIDE 400 MG TABLET PO SCH (22:44)
[2017-03-13] MEDS: ENOXAPARIN 40 MG/0.4 ML SYRINGE SUBCUT SCH (22:44)
[2017-03-14] MEDS: ALBUTEROL/IPRATROPIUM 3 ML NEB RESP TX SCH ×4 (00:46→20:00)
[2017-03-14] MEDS: SUCRALFATE 1 GM TABLET PO SCH ×5 (06:40→21:22)
[2017-03-14] MEDS: SODIUM CHLORIDE 0.9% 1,000 ML IV SCH (08:12)
[2017-03-14] MEDS: LACTOBACILLUS ACIDOPHILUS/BULGARICUS CAPLET PO SCH ×2 (13:47→21:21)
[2017-03-14] MEDS: CYANOCOBALAMIN 500 MCG TABLET PO SCH (13:47)
[2017-03-14] MEDS: MULTIVITAMIN (CENTRUM) TABLET PO SCH (13:48)
[2017-03-14] MEDS: ACETAMINOPHEN 500 MG TABLET PO SCH ×2 (13:48→21:21)
[2017-03-14] MEDS: LORATADINE 10 MG TABLET PO SCH (13:49)
[2017-03-14] MEDS: DONEPEZIL 5 MG TABLET PO SCH (13:49)
[2017-03-14] MEDS: PANTOPRAZOLE 40 MG TABLET PO SCH (13:50)
[2017-03-14] MEDS: LOVASTATIN 20 MG TABLET PO SCH (13:50)
[2017-03-14] MEDS: ASPIRIN EC 325 MG TABLET PO SCH (13:50)
[2017-03-14] MEDS: IPRATROPIUM 0.03% NASAL SPRAY 30 ML BOTTLE BOTH NARES SCH ×2 (13:52→21:22)
[2017-03-14] MEDS: FLUTICASONE 50 MCG NASAL SPRAY 16 GM BOTTLE BOTH NARES SCH (13:53)
[2017-03-14] MEDS ORDERED: TOPIRAMATE 25 MG TABLET PO SCH (21:00)
[2017-03-14] MEDS: MELATONIN 3 MG TABLET PO SCH (21:20)
[2017-03-14] MEDS: ENOXAPARIN 40 MG/0.4 ML SYRINGE SUBCUT SCH (21:20)
[2017-03-14] MEDS: CHOLECALCIFEROL 1,000 UNIT TABLET PO SCH (21:20)
[2017-03-14] MEDS: POTASSIUM CHLORIDE 10 MEQ TABLET PO SCH (21:21)
[2017-03-14] MEDS: TERBINAFINE 1% CREAM 12 GM TUBE TOP SCH (21:22)
[2017-03-14] MEDS: MAGNESIUM OXIDE 400 MG TABLET PO SCH (21:22)
[2017-03-15] MEDS: ALBUTEROL/IPRATROPIUM 3 ML NEB RESP TX SCH ×2 (00:20→07:10)
[2017-03-15] MEDS: CYANOCOBALAMIN 500 MCG TABLET PO SCH (10:39)
[2017-03-15] MEDS: LORATADINE 10 MG TABLET PO SCH (10:40)
[2017-03-15] MEDS: MULTIVITAMIN (CENTRUM) TABLET PO SCH (10:41)
[2017-03-15] MEDS: DONEPEZIL 5 MG TABLET PO SCH (10:41)
[2017-03-15] MEDS: PANTOPRAZOLE 40 MG TABLET PO SCH (10:41)
[2017-03-15] MEDS: LACTOBACILLUS ACIDOPHILUS/BULGARICUS CAPLET PO SCH (10:41)
[2017-03-15] MEDS: ACETAMINOPHEN 500 MG TABLET PO SCH (10:42)
[2017-03-15] MEDS: ASPIRIN EC 325 MG TABLET PO SCH (10:42)
[2017-03-15] MEDS: SUCRALFATE 1 GM TABLET PO SCH ×2 (10:42→19:22)
[2017-03-15] MEDS: LOVASTATIN 20 MG TABLET PO SCH (10:43)
[2017-03-15] MEDS: IPRATROPIUM 0.03% NASAL SPRAY 30 ML BOTTLE BOTH NARES SCH (11:01)
[2017-03-15] MEDS: FLUTICASONE 50 MCG NASAL SPRAY 16 GM BOTTLE BOTH NARES SCH (11:01)
[2017-03-15 11:27] VITALS: BP 151/79
[2017-03-15 11:27] LABS: Basophils % 0.2 % (0.0-0.8); Eosinophils # 0.1 10*3/uL (0.0-0.87); Eosinophils % 2.5 % (0.00-10.9); Hematocrit 33.9 VOL% (35.7-47.0); Hemoglobin 11.6 GM/DL (12.0-16.0); Immature Granulocytes % 0.7 %; Immature Granulocytes Absolute 0.04 #; Lymphocytes # 1.2 10*3/uL (1.4-4.0); Lymphocytes % 21.1 % (21.3-54.2); Mean Corpuscular HGB Conc 34.2 GM/DL (32-36); Mean Corpuscular Hemoglobin 30 PG (27-34); Mean Corpuscular Volume 88.7 FL (87-102); Mean Platelet Volume 8.8 FL (9.6-12.0); Monocytes # 0.4 10*3/uL (0.11-0.8); Monocytes % 7.2 % (1.7-12.7); Neutrophils # 3.8 10*3/uL (1.4-7.4); Neutrophils % 68.3 % (38.7-73.9); Platelet Count 213 T/CUMM (130-400); Red Blood Count 3.82 MC/CUMM (3.8-5.5); Red Cell Distribution Width 14.3 % (9.3-17.3); White Blood Count 5.6 T/CUMM (4-12)
== END 2017-03-15 14:00 | disposition home health service (06) | DRG 696 ==
LOC: EDUNIT# → EDBD → N.ED 11:36 → N.EDINP 14:49 → SUATTDRO 14:49 → N.3E 16:10
PROVIDERS: ADMIT Internal Medicine; ATTEND Internal Medicine

== ENCOUNTER 2017-03-24 17:50 | Inpatient (IN) ==
[2017-03-24] MEDS ORDERED: SODIUM CHLORIDE 0.9% 500 ML IV STA (19:19)
[2017-03-24 19:54] LABS: Basophils % 0.4 % (0.0-0.8); Eosinophils # 0.3 10*3/uL (0.0-0.87); Eosinophils % 4.2 % (0.00-10.9); Hematocrit 43.1 VOL% (35.7-47.0); Hemoglobin 14.4 GM/DL (12.0-16.0); Immature Granulocytes % 0.3 %; Immature Granulocytes Absolute 0.02 #; Lymphocytes # 1.9 10*3/uL (1.4-4.0); Lymphocytes % 28.7 % (21.3-54.2); Mean Corpuscular HGB Conc 33.4 GM/DL (32-36); Mean Corpuscular Hemoglobin 30 PG (27-34); Mean Platelet Volume 9.1 FL (9.6-12.0); Monocytes # 0.6 10*3/uL (0.11-0.8); Monocytes % 8.3 % (1.7-12.7); Neutrophils # 3.9 10*3/uL (1.4-7.4); Neutrophils % 58.1 % (38.7-73.9); Platelet Count 324 T/CUMM (130-400); Red Blood Count 4.79 MC/CUMM (3.8-5.5); Red Cell Distribution Width 14.4 % (9.3-17.3); White Blood Count 6.7 T/CUMM (4-12)
[2017-03-24 20:12] LABS: Apearance,Urine CLOUDY (Clear); Bilirubin,Urine Negative (Negative); Blood, Urine Small mg/dL (Negative); Glucose,Urine (UA) Negative (Negative); Ketones,Urine Negative (Negative); Mucus,Urine Occasional /LPF (Occasional); Nitrite,Urine Negative (Negative); Protein,Urine Negative; RBC,Urine 21 /HPF (0-4); Squamous Epithelial Cell,Urine Occasional /HPF (0-10); Urine Color Yellow (Yellow); Urine Specific Gravity 1.009 (1.001-1.035); Urine Urobilinogen < 2.0 EU/DL (0.2-1.0); WBC,Urine 112 /HPF (0-6)
[2017-03-24 20:13] LABS: Albumin 2.9 G/DL (3.4-5.0); Bilirubin,Total 0.4 MG/DL (0.2-1.0); Lactic Acid 1.1 MMOL/L (0.4-2.0); Osmolality,Calculated 277.5 MOS/KG (273-304); Potassium 4.4 MMOL/L (3.5-5.1); Total Protein 7.1 G/DL (6.4-8.3)
[2017-03-24] MEDS ORDERED: POLYETHYLENE GLYCOL POWDER 17 GM PACK PO ONE (23:58)
[2017-03-24] MEDS ORDERED: ONDANSETRON 4 MG/2 ML VIAL IV PRN (23:58)
[2017-03-25] MEDS: SODIUM CHLORIDE 0.9% 1,000 ML IV SCH ×3 (01:21→22:43)
[2017-03-25] MEDS: ENOXAPARIN 40 MG/0.4 ML SYRINGE SUBCUT SCH (01:21)
[2017-03-25] MEDS: PANTOPRAZOLE 40 MG TABLET PO SCH (09:07)
[2017-03-25] MEDS: POLYETHYLENE GLYCOL POWDER 17 GM PACK PO SCH (09:10)
[2017-03-25] MEDS: ZINC OXIDE PASTE 113 GM TUBE TOP SCH ×2 (17:32→22:44)
[2017-03-26] MEDS: ENOXAPARIN 40 MG/0.4 ML SYRINGE SUBCUT SCH (00:07)
[2017-03-26 07:23] LABS: Calcium 8.6 MG/DL (8.5-10.1); Phosphorous 2.1 MG/DL (2.5-4.9); Potassium 3.8 MMOL/L (3.5-5.1); Prealbumin 24.3 MG/DL (20-40)
[2017-03-26] MEDS: SODIUM CHLORIDE 0.9% 1,000 ML IV SCH (08:22)
[2017-03-26] MEDS: POLYETHYLENE GLYCOL POWDER 17 GM PACK PO SCH (08:29)
[2017-03-26] MEDS: PANTOPRAZOLE 40 MG TABLET PO SCH (08:30)
[2017-03-26] MEDS: ZINC OXIDE PASTE 113 GM TUBE TOP SCH (08:30)
[2017-03-26] MEDS ORDERED: MULTIVITAMIN LIQUID (CENTRUM) 60 ML BOTTLE PO SCH (09:00)
[2017-03-26 13:41] VITALS: BP 159/71
== END 2017-03-26 16:04 | disposition home health service (06) | DRG 392 ==
LOC: N.ED 17:50 → N.EDINP 22:54 → N.4E 23:54
PROVIDERS: ADMIT Internal Medicine; ATTEND Internal Medicine

== ENCOUNTER 2017-09-24 15:55 | Inpatient (IN) ==
[2017-09-24] MEDS ORDERED: methylPREDNISolone SOD SUC 125 MG/2 ML VIAL IV STA (17:09)
[2017-09-24] MEDS ORDERED: VANCOMYCIN INJ 1,000 MG in SODIUM CHLORIDE 0.9% 250 ML IV STA (17:12)
[2017-09-24] MEDS ORDERED: ALBUTEROL 2.5 MG/3 ML NEB RESP TX SCH (17:30)
[2017-09-24 18:14] LABS: Basophils % 0.2 % (0.0-0.8); Eosinophils # 0.1 10*3/uL (0.0-0.87); Eosinophils % 0.4 % (0.00-10.9); Hematocrit 37.6 VOL% (35.7-47.0); Hemoglobin 12.6 GM/DL (12.0-16.0); Immature Granulocytes % 0.9 %; Lymphocytes # 3.8 10*3/uL (1.4-4.0); Lymphocytes % 32.1 % (21.3-54.2); Mean Corpuscular HGB Conc 33.5 GM/DL (32-36); Mean Corpuscular Hemoglobin 29 PG (27-34); Mean Corpuscular Volume 85.5 FL (87-102); Mean Platelet Volume 8.4 FL (9.6-12.0); Monocytes # 0.7 10*3/uL (0.11-0.8); Monocytes % 6.3 % (1.7-12.7); Neutrophils # 7.1 10*3/uL (1.4-7.4); Neutrophils % 60.1 % (38.7-73.9); Platelet Count 289 T/CUMM (130-400); Red Cell Distribution Width 15.5 % (9.3-17.3); White Blood Count 11.8 T/CUMM (4-12)
[2017-09-24 18:41] LABS: Alanine Aminotransferase 16 U/L (13-56); Albumin 2.5 G/DL (3.4-5.0); Alkaline Phosphatase 73 U/L (45-117); Aspartate Amino Transferase 12 U/L (0-37); Bilirubin,Total < 0.39 MG/DL (0.2-1.0); Blood Urea Nitrogen 13 MG/DL (7-18); Calcium 9.4 MG/DL (8.5-10.1); Glucose 87 MG/DL (74-106); Osmolality,Calculated 268.1 MOS/KG (273-304); Potassium 3.8 MMOL/L (3.5-5.1); Sodium 135 MMOL/L (136-145); Total Protein 6.7 G/DL (6.4-8.3); Troponin I Only < 0.015 NG/ML (0.00-0.045)
[2017-09-24] MEDS ORDERED: FAMOTIDINE 20 MG/2 ML VIAL IV STA (18:50)
[2017-09-24] MEDS ORDERED: diphenhydrAMINE 50 MG/1 ML VIAL IV STA (18:50)
[2017-09-24 19:32] LABS: Apearance,Urine CLOUDY (Clear); Bacteria,Urine Occasional /HPF (Few); Bilirubin,Urine Negative (Negative); Blood, Urine Negative (Negative); Glucose,Urine (UA) Negative (Negative); Ketones,Urine Negative (Negative); Nitrite,Urine Positive (Negative); Protein,Urine Negative; RBC,Urine <1 /HPF (0-4); Urine Color Yellow (Yellow); Urine Urobilinogen < 2.0 EU/DL (0.2-1.0); WBC,Urine <1 /HPF (0-6)
[2017-09-24] MEDS ORDERED: ALBUTEROL/IPRATROPIUM 3 ML NEB RESP TX PRN ×2 (21:53)
[2017-09-24] MEDS ORDERED: LACTOBACILLUS ACIDOPHILUS/BULGARICUS CAPLET PEG SCH (21:53)
[2017-09-24] MEDS ORDERED: ONDANSETRON 4 MG/2 ML VIAL IV PRN (21:53)
[2017-09-24] MEDS ORDERED: POLYETHYLENE GLYCOL POWDER 17 GM PACK PEG PRN (21:53)
[2017-09-24] MEDS: CLINDAMYCIN INJ 600 MG in PREMIX 1 EACH IV SCH (22:15)
[2017-09-24] MEDS: IPRATROPIUM 0.06% NASAL SPRAY 15 ML BOTTLE BOTH NARES SCH (22:17)
[2017-09-24] MEDS: DONEPEZIL 5 MG TABLET PEG SCH (22:17)
[2017-09-24] MEDS: SUCRALFATE 1 GM TABLET PEG SCH (22:17)
[2017-09-24] MEDS: DOCUSATE SODIUM 100 MG CAPSULE PO SCH (22:19)
[2017-09-24] MEDS: POTASSIUM CHLORIDE 10 MEQ TABLET PO SCH (22:39)
[2017-09-24] MEDS: NON-FORMULARY MEDICATION (Cranberry Fruit Extract [Cranberry] 500 MG) PEG SCH (22:39)
[2017-09-24] MEDS: MAGNESIUM OXIDE 400 MG TABLET PEG SCH (22:39)
[2017-09-24] MEDS: CHOLECALCIFEROL 5,000 UNIT TABLET PEG SCH (22:40)
[2017-09-24] MEDS: TOPIRAMATE 25 MG TABLET PEG SCH (22:40)
[2017-09-24] MEDS: ENOXAPARIN 40 MG/0.4 ML SYRINGE SUBCUT SCH (22:40)
[2017-09-24] MEDS: GLYCOPYRROLATE 1 MG TABLET PEG SCH (22:40)
[2017-09-24] MEDS: SODIUM CHLORIDE 0.9% 1,000 ML IV SCH (22:41)
[2017-09-24] MEDS: LACTOBACILLUS ACIDOPHILUS/BULGARICUS CAPLET PEG SCH (23:02)
[2017-09-24] MEDS: ACETAMINOPHEN 325 MG TABLET PO PRN (23:13)
[2017-09-24] MEDS: LEVOFLOXACIN INJ 750 MG in PREMIX 1 EACH IV SCH (23:13)
[2017-09-25] MEDS: CLINDAMYCIN INJ 600 MG in PREMIX 1 EACH IV SCH ×3 (05:19→21:38)
[2017-09-25 06:37] LABS: Basophils % 0.1 % (0.0-0.8); Hemoglobin 11.7 GM/DL (12.0-16.0); Immature Granulocytes % 1.2 %; Immature Granulocytes Absolute 0.09 #; Lymphocytes # 0.5 10*3/uL (1.4-4.0); Lymphocytes % 6.8 % (21.3-54.2); Mean Corpuscular HGB Conc 32.5 GM/DL (32-36); Mean Corpuscular Hemoglobin 28 PG (27-34); Mean Corpuscular Volume 86.5 FL (87-102); Mean Platelet Volume 8.6 FL (9.6-12.0); Monocytes # 0.1 10*3/uL (0.11-0.8); Monocytes % 0.7 % (1.7-12.7); Neutrophils # 6.8 10*3/uL (1.4-7.4); Neutrophils % 91.2 % (38.7-73.9); Platelet Count 311 T/CUMM (130-400); Red Blood Count 4.16 MC/CUMM (3.8-5.5); Red Cell Distribution Width 15.4 % (9.3-17.3); White Blood Count 7.4 T/CUMM (4-12)
[2017-09-25 07:11] LABS: Albumin 2.6 G/DL (3.4-5.0); Bilirubin,Total 1.4 MG/DL (0.2-1.0); Calcium 9.6 MG/DL (8.5-10.1); Osmolality,Calculated 277.7 MOS/KG (273-304); Potassium 3.7 MMOL/L (3.5-5.1); Risk Ratio 2.23; Total Protein 6.6 G/DL (6.4-8.3); VLDL CHOLESTEROL 9.8 MG/DL
[2017-09-25 07:33] LABS: Lymphocytes 7 % (20-55); Segmented Neutrophils 90 % (50-85); Total Cells Counted 100
[2017-09-25 07:34] LABS: Hypochromasia 2+; Microcytosis 2+; Platelet Estimate Adequate
[2017-09-25] MEDS ORDERED: MULTIVITAMIN (CENTRUM) TABLET PEG SCH (09:00)
[2017-09-25] MEDS ORDERED: PANTOPRAZOLE 40 MG TABLET PO SCH (09:00)
[2017-09-25] MEDS: PANTOPRAZOLE 40 MG TABLET PO SCH (10:00)
[2017-09-25] MEDS: CYANOCOBALAMIN 500 MCG TABLET PEG SCH (10:00)
[2017-09-25] MEDS: FLUTICASONE 50 MCG NASAL SPRAY 16 GM BOTTLE BOTH NARES SCH (10:00)
[2017-09-25] MEDS: IPRATROPIUM 0.06% NASAL SPRAY 15 ML BOTTLE BOTH NARES SCH ×2 (10:00→21:40)
[2017-09-25] MEDS: GLYCOPYRROLATE 1 MG TABLET PEG SCH ×2 (10:00→21:42)
[2017-09-25] MEDS: NON-FORMULARY MEDICATION (Cranberry Fruit Extract [Cranberry] 500 MG) PEG SCH ×2 (10:01→21:41)
[2017-09-25] MEDS: LORATADINE 10 MG TABLET PEG SCH (10:01)
[2017-09-25] MEDS: LOVASTATIN 20 MG TABLET PEG SCH (10:01)
[2017-09-25] MEDS: LACTOBACILLUS ACIDOPHILUS/BULGARICUS CAPLET PEG SCH ×2 (10:01→21:39)
[2017-09-25] MEDS: DOCUSATE SODIUM 100 MG CAPSULE PO SCH ×2 (10:01→21:40)
[2017-09-25] MEDS: SUCRALFATE 1 GM TABLET PEG SCH ×2 (10:01→21:39)
[2017-09-25] MEDS: ACETAMINOPHEN 500 MG TABLET PEG SCH (10:03)
[2017-09-25] MEDS: DORNASE ALFA 2.5 MG/2.5 ML VIAL RESP TX SCH ×2 (11:25→19:43)
[2017-09-25] MEDS: SODIUM CHLORIDE 0.9% 1,000 ML IV SCH (14:37)
[2017-09-25] MEDS ORDERED: MEGESTROL 400 MG/10 ML UDCUP PEG SCH (19:00)
[2017-09-25] MEDS: CHOLECALCIFEROL 5,000 UNIT TABLET PEG SCH (21:39)
[2017-09-25] MEDS: MAGNESIUM OXIDE 400 MG TABLET PEG SCH (21:39)
[2017-09-25] MEDS: TOPIRAMATE 25 MG TABLET PEG SCH (21:39)
[2017-09-25] MEDS: ENOXAPARIN 40 MG/0.4 ML SYRINGE SUBCUT SCH (21:39)
[2017-09-25] MEDS: POTASSIUM CHLORIDE 10 MEQ TABLET PO SCH (21:40)
[2017-09-25] MEDS: DONEPEZIL 5 MG TABLET PEG SCH (21:40)
[2017-09-25] MEDS: MEGESTROL 400 MG/10 ML UDCUP PEG SCH (21:40)
[2017-09-25] MEDS: DESITIN 4OZ/NYSTATIN 15 GRAM MIXTURE PASTE TOP SCH (21:41)
[2017-09-25] MEDS: LEVOFLOXACIN INJ 750 MG in PREMIX 1 EACH IV SCH (22:53)
[2017-09-26] MEDS: SODIUM CHLORIDE 0.9% 1,000 ML IV SCH ×3 (01:34→22:40)
[2017-09-26 05:55] LABS: Basophils % 0.1 % (0.0-0.8); Hematocrit 35.8 VOL% (35.7-47.0); Hemoglobin 11.5 GM/DL (12.0-16.0); Immature Granulocytes % 1.2 %; Immature Granulocytes Absolute 0.11 #; Lymphocytes % 11.1 % (21.3-54.2); Mean Corpuscular HGB Conc 32.1 GM/DL (32-36); Mean Corpuscular Hemoglobin 28 PG (27-34); Mean Corpuscular Volume 86.9 FL (87-102); Mean Platelet Volume 8.8 FL (9.6-12.0); Monocytes # 0.7 10*3/uL (0.11-0.8); Monocytes % 7.8 % (1.7-12.7); Neutrophils # 7.2 10*3/uL (1.4-7.4); Neutrophils % 79.8 % (38.7-73.9); Platelet Count 295 T/CUMM (130-400); Red Blood Count 4.12 MC/CUMM (3.8-5.5); Red Cell Distribution Width 15.9 % (9.3-17.3)
[2017-09-26] MEDS: CLINDAMYCIN INJ 600 MG in PREMIX 1 EACH IV SCH ×3 (06:21→21:22)
[2017-09-26 06:26] LABS: Calcium 8.6 MG/DL (8.5-10.1); Osmolality,Calculated 285.1 MOS/KG (273-304); Potassium 3.7 MMOL/L (3.5-5.1)
[2017-09-26 06:33] LABS: Calcium 8.2 MG/DL (8.5-10.1); Potassium 3.7 MMOL/L (3.5-5.1); Prealbumin 30.7 MG/DL (20-40)
[2017-09-26] MEDS: DORNASE ALFA 2.5 MG/2.5 ML VIAL RESP TX SCH ×2 (07:37→19:25)
[2017-09-26] MEDS: ACETAMINOPHEN 325 MG TABLET PO PRN (10:26)
[2017-09-26] MEDS: CYANOCOBALAMIN 500 MCG TABLET PEG SCH (10:26)
[2017-09-26] MEDS: LORATADINE 10 MG TABLET PEG SCH (10:27)
[2017-09-26] MEDS: SUCRALFATE 1 GM TABLET PEG SCH ×2 (10:28→21:24)
[2017-09-26] MEDS: LACTOBACILLUS ACIDOPHILUS/BULGARICUS CAPLET PEG SCH ×2 (10:28→21:23)
[2017-09-26] MEDS: LOVASTATIN 20 MG TABLET PEG SCH (10:28)
[2017-09-26] MEDS: DOCUSATE SODIUM 100 MG CAPSULE PO SCH ×2 (10:28→21:24)
[2017-09-26] MEDS: PANTOPRAZOLE 40 MG TABLET PO SCH (10:28)
[2017-09-26] MEDS: DESITIN 4OZ/NYSTATIN 15 GRAM MIXTURE PASTE TOP SCH ×2 (10:28→21:24)
[2017-09-26] MEDS: IPRATROPIUM 0.06% NASAL SPRAY 15 ML BOTTLE BOTH NARES SCH ×2 (10:29→21:25)
[2017-09-26] MEDS: GLYCOPYRROLATE 1 MG TABLET PEG SCH ×2 (10:29→21:24)
[2017-09-26] MEDS: FLUTICASONE 50 MCG NASAL SPRAY 16 GM BOTTLE BOTH NARES SCH (10:29)
[2017-09-26] MEDS: ACETAMINOPHEN 500 MG TABLET PEG SCH ×2 (10:31→13:42)
[2017-09-26] MEDS: MULTIVITAMIN LIQUID (CENTRUM) 60 ML BOTTLE PO SCH (10:49)
[2017-09-26] MEDS: NON-FORMULARY MEDICATION (Cranberry Fruit Extract [Cranberry] 500 MG) PEG SCH ×2 (10:49→21:25)
[2017-09-26] MEDS ORDERED: traMADol 50 MG TABLET PEG SCH (20:00)
[2017-09-26] MEDS: MEGESTROL 400 MG/10 ML UDCUP PEG SCH (21:22)
[2017-09-26] MEDS: TOPIRAMATE 25 MG TABLET PEG SCH (21:23)
[2017-09-26] MEDS: CHOLECALCIFEROL 5,000 UNIT TABLET PEG SCH (21:23)
[2017-09-26] MEDS: MAGNESIUM OXIDE 400 MG TABLET PEG SCH (21:23)
[2017-09-26] MEDS: DONEPEZIL 5 MG TABLET PEG SCH (21:23)
[2017-09-26] MEDS: POTASSIUM CHLORIDE 10 MEQ TABLET PO SCH (21:24)
[2017-09-26] MEDS: ENOXAPARIN 40 MG/0.4 ML SYRINGE SUBCUT SCH (21:24)
[2017-09-26] MEDS: LEVOFLOXACIN INJ 750 MG in PREMIX 1 EACH IV SCH (22:39)
[2017-09-27] MEDS: SODIUM CHLORIDE 0.9% 1,000 ML IV SCH ×2 (02:42→16:02)
[2017-09-27] MEDS: CLINDAMYCIN INJ 600 MG in PREMIX 1 EACH IV SCH ×3 (06:12→21:37)
[2017-09-27 07:13] LABS: Basophils % 0.3 % (0.0-0.8); Eosinophils % 0.5 % (0.00-10.9); Hematocrit 37.2 VOL% (35.7-47.0); Hemoglobin 11.7 GM/DL (12.0-16.0); Immature Granulocytes % 1.1 %; Immature Granulocytes Absolute 0.09 #; Lymphocytes # 1.3 10*3/uL (1.4-4.0); Lymphocytes % 16.9 % (21.3-54.2); Mean Corpuscular HGB Conc 31.5 GM/DL (32-36); Mean Corpuscular Hemoglobin 28 PG (27-34); Mean Corpuscular Volume 87.5 FL (87-102); Mean Platelet Volume 8.9 FL (9.6-12.0); Monocytes # 0.6 10*3/uL (0.11-0.8); Monocytes % 8.1 % (1.7-12.7); Neutrophils # 5.8 10*3/uL (1.4-7.4); Neutrophils % 73.1 % (38.7-73.9); Platelet Count 302 T/CUMM (130-400); Red Blood Count 4.25 MC/CUMM (3.8-5.5); Red Cell Distribution Width 15.8 % (9.3-17.3); White Blood Count 7.9 T/CUMM (4-12)
[2017-09-27] MEDS: DORNASE ALFA 2.5 MG/2.5 ML VIAL RESP TX SCH ×2 (07:37→19:34)
[2017-09-27 07:41] LABS: Calcium 8.4 MG/DL (8.5-10.1); Osmolality,Calculated 283.1 MOS/KG (273-304)
[2017-09-27] MEDS: SUCRALFATE 1 GM TABLET PEG SCH ×2 (10:38→21:38)
[2017-09-27] MEDS: CYANOCOBALAMIN 500 MCG TABLET PEG SCH (10:38)
[2017-09-27] MEDS: DOCUSATE SODIUM 100 MG CAPSULE PO SCH ×2 (10:38→21:39)
[2017-09-27] MEDS: ACETAMINOPHEN 500 MG TABLET PEG SCH (10:38)
[2017-09-27] MEDS: GLYCOPYRROLATE 1 MG TABLET PEG SCH ×2 (10:38→21:40)
[2017-09-27] MEDS: LOVASTATIN 20 MG TABLET PEG SCH (10:38)
[2017-09-27] MEDS: PANTOPRAZOLE 40 MG TABLET PO SCH (10:39)
[2017-09-27] MEDS: LACTOBACILLUS ACIDOPHILUS/BULGARICUS CAPLET PEG SCH ×2 (10:39→21:38)
[2017-09-27] MEDS: FLUTICASONE 50 MCG NASAL SPRAY 16 GM BOTTLE BOTH NARES SCH (10:39)
[2017-09-27] MEDS: IPRATROPIUM 0.06% NASAL SPRAY 15 ML BOTTLE BOTH NARES SCH ×2 (10:40→21:39)
[2017-09-27] MEDS: DESITIN 4OZ/NYSTATIN 15 GRAM MIXTURE PASTE TOP SCH ×2 (10:40→21:40)
[2017-09-27] MEDS: MULTIVITAMIN LIQUID (CENTRUM) 60 ML BOTTLE PO SCH (10:41)
[2017-09-27] MEDS: NON-FORMULARY MEDICATION (Cranberry Fruit Extract [Cranberry] 500 MG) PEG SCH ×2 (10:42→21:39)
[2017-09-27] MEDS: LORATADINE 10 MG TABLET PEG SCH (10:42)
[2017-09-27] MEDS: ENOXAPARIN 40 MG/0.4 ML SYRINGE SUBCUT SCH (21:38)
[2017-09-27] MEDS: DONEPEZIL 5 MG TABLET PEG SCH (21:38)
[2017-09-27] MEDS: TOPIRAMATE 25 MG TABLET PEG SCH (21:38)
[2017-09-27] MEDS: MAGNESIUM OXIDE 400 MG TABLET PEG SCH (21:39)
[2017-09-27] MEDS: MEGESTROL 400 MG/10 ML UDCUP PEG SCH (21:39)
[2017-09-27] MEDS: CHOLECALCIFEROL 5,000 UNIT TABLET PEG SCH (21:39)
[2017-09-27] MEDS: POTASSIUM CHLORIDE 10 MEQ TABLET PO SCH (21:39)
[2017-09-27] MEDS: LEVOFLOXACIN INJ 750 MG in PREMIX 1 EACH IV SCH (22:53)
[2017-09-28 05:44] LABS: Basophils % 0.5 % (0.0-0.8); Eosinophils # 0.1 10*3/uL (0.0-0.87); Eosinophils % 1.1 % (0.00-10.9); Hematocrit 35.9 VOL% (35.7-47.0); Hemoglobin 11.6 GM/DL (12.0-16.0); Immature Granulocytes % 0.8 %; Immature Granulocytes Absolute 0.07 #; Lymphocytes # 1.3 10*3/uL (1.4-4.0); Lymphocytes % 14.7 % (21.3-54.2); Mean Corpuscular HGB Conc 32.3 GM/DL (32-36); Mean Corpuscular Hemoglobin 28 PG (27-34); Mean Corpuscular Volume 86.1 FL (87-102); Mean Platelet Volume 8.9 FL (9.6-12.0); Monocytes # 0.6 10*3/uL (0.11-0.8); Monocytes % 6.7 % (1.7-12.7); Neutrophils # 6.5 10*3/uL (1.4-7.4); Neutrophils % 76.2 % (38.7-73.9); Platelet Count 272 T/CUMM (130-400); Red Blood Count 4.17 MC/CUMM (3.8-5.5); Red Cell Distribution Width 15.9 % (9.3-17.3); White Blood Count 8.5 T/CUMM (4-12)
[2017-09-28 06:23] LABS: Calcium 8.3 MG/DL (8.5-10.1); Osmolality,Calculated 282.3 MOS/KG (273-304); Potassium 3.7 MMOL/L (3.5-5.1)
[2017-09-28] MEDS: CLINDAMYCIN INJ 600 MG in PREMIX 1 EACH IV SCH ×2 (06:23→13:38)
[2017-09-28] MEDS: SODIUM CHLORIDE 0.9% 1,000 ML IV SCH (06:25)
[2017-09-28] MEDS: DORNASE ALFA 2.5 MG/2.5 ML VIAL RESP TX SCH (07:54)
[2017-09-28] MEDS: NON-FORMULARY MEDICATION (Cranberry Fruit Extract [Cranberry] 500 MG) PEG SCH (10:33)
[2017-09-28] MEDS: GLYCOPYRROLATE 1 MG TABLET PEG SCH (10:40)
[2017-09-28] MEDS: DOCUSATE SODIUM 100 MG CAPSULE PO SCH (10:41)
[2017-09-28] MEDS: MULTIVITAMIN LIQUID (CENTRUM) 60 ML BOTTLE PO SCH (10:41)
[2017-09-28] MEDS: LORATADINE 10 MG TABLET PEG SCH (10:41)
[2017-09-28] MEDS: LOVASTATIN 20 MG TABLET PEG SCH (10:41)
[2017-09-28] MEDS: PANTOPRAZOLE 40 MG TABLET PO SCH (10:41)
[2017-09-28] MEDS: LACTOBACILLUS ACIDOPHILUS/BULGARICUS CAPLET PEG SCH (10:41)
[2017-09-28] MEDS: SUCRALFATE 1 GM TABLET PEG SCH (10:41)
[2017-09-28] MEDS: DESITIN 4OZ/NYSTATIN 15 GRAM MIXTURE PASTE TOP SCH (10:41)
[2017-09-28] MEDS: ACETAMINOPHEN 500 MG TABLET PEG SCH (10:41)
[2017-09-28] MEDS: IPRATROPIUM 0.06% NASAL SPRAY 15 ML BOTTLE BOTH NARES SCH (10:42)
[2017-09-28] MEDS: FLUTICASONE 50 MCG NASAL SPRAY 16 GM BOTTLE BOTH NARES SCH (10:42)
[2017-09-28] MEDS: CYANOCOBALAMIN 500 MCG TABLET PEG SCH (10:43)
[2017-09-28 13:04] VITALS: BP 125/52
[2017-09-28 14:07] LABS: Apearance,Urine Slightly Hazy (Clear); Bilirubin,Urine Negative (Negative); Blood, Urine Negative (Negative); Glucose,Urine (UA) Negative (Negative); Ketones,Urine Negative (Negative); Mucus,Urine Occasional /LPF (Occasional); Nitrite,Urine Negative (Negative); Protein,Urine Negative; RBC,Urine 2 /HPF (0-4); Squamous Epithelial Cell,Urine Occasional /HPF (0-10); Urine Color Yellow (Yellow); Urine Specific Gravity 1.009 (1.001-1.035); Urine Urobilinogen < 2.0 EU/DL (0.2-1.0); WBC,Urine 49 /HPF (0-6)
[2017-09-28] MEDS ORDERED: BISACODYL 10 MG SUPP RECTAL STA (14:24)
== END 2017-09-28 15:30 | disposition home health service (06) | DRG 194 ==
LOC: N.ED 15:55 → N.EDINP 20:57 → N.5E 21:28
PROVIDERS: ADMIT Family Medicine; ATTEND Family Medicine

== ENCOUNTER 2017-10-29 20:38 | Inpatient (IN) ==
[2017-10-29 22:27] LABS: Basophils % 0.3 % (0.0-0.8); Eosinophils # 0.2 10*3/uL (0.0-0.87); Eosinophils % 1.9 % (0.00-10.9); Hematocrit 36.7 VOL% (35.7-47.0); Hemoglobin 11.8 GM/DL (12.0-16.0); Lymphocytes # 1.2 10*3/uL (1.4-4.0); Lymphocytes % 12.1 % (21.3-54.2); Mean Corpuscular HGB Conc 32.2 GM/DL (32-36); Mean Corpuscular Hemoglobin 28 PG (27-34); Mean Corpuscular Volume 86.2 FL (87-102); Mean Platelet Volume 9.3 FL (9.6-12.0); Monocytes # 0.6 10*3/uL (0.11-0.8); Monocytes % 6.2 % (1.7-12.7); Neutrophils # 7.9 10*3/uL (1.4-7.4); Neutrophils % 77.5 % (38.7-73.9); Platelet Count 320 T/CUMM (130-400); Red Blood Count 4.26 MC/CUMM (3.8-5.5); Red Cell Distribution Width 16.6 % (9.3-17.3); White Blood Count 10.2 T/CUMM (4-12)
[2017-10-29 22:29] LABS: Alanine Aminotransferase 13 U/L (13-56); Albumin 2.1 G/DL (3.4-5.0); Alkaline Phosphatase 83 U/L (45-117); Aspartate Amino Transferase 18 U/L (0-37); Bilirubin,Total < 0.39 MG/DL (0.2-1.0); Blood Urea Nitrogen 10 MG/DL (7-18); Calcium 9.4 MG/DL (8.5-10.1); Glucose 78 MG/DL (74-106); Osmolality,Calculated 267.1 MOS/KG (273-304); Potassium 4.2 MMOL/L (3.5-5.1); Sodium 135 MMOL/L (136-145)
[2017-10-29 22:41] LABS: PT Patient Result 10.3 SECS; Partial Thromboplastin Time 25.8 SECS (0-40)
[2017-10-29 23:00] LABS: Apearance,Urine Slightly Hazy (Clear); Bacteria,Urine Occasional /HPF (Few); Bilirubin,Urine Negative (Negative); Blood, Urine Negative (Negative); Glucose,Urine (UA) Negative (Negative); Ketones,Urine Negative (Negative); Mucus,Urine Occasional /LPF (Occasional); Nitrite,Urine Negative (Negative); Protein,Urine Negative; RBC,Urine 11 /HPF (0-4); Urine Color Yellow (Yellow); Urine Specific Gravity 1.004 (1.001-1.035); Urine Urobilinogen < 2.0 EU/DL (0.2-1.0); WBC,Urine 2 /HPF (0-6)
[2017-10-30 00:12] LABS: Barbiturates Screen,Urine Negative (Negative); Benzodiazepines Screen,Urine Negative (Negative); Cannabinoid Screen,Urine Negative (Negative); Opiate Screen,Urine Negative (Negative); Phencyclidine Screen,Urine Negative (Negative)
[2017-10-30] MEDS ORDERED: LEVOFLOXACIN INJ 750 MG in PREMIX 1 EACH IV STA (01:11)
[2017-10-30] MEDS ORDERED: FUROSEMIDE 20 MG/2 ML VIAL IV STA (01:18)
[2017-10-30] MEDS ORDERED: diphenhydrAMINE 25 MG/10 ML UDCUP ONE (01:39)
[2017-10-30] MEDS ORDERED: diphenhydrAMINE 50 MG/1 ML VIAL ONE (01:40)
[2017-10-30] MEDS ORDERED: methylPREDNISolone SOD SUC 125 MG/2 ML VIAL ONE (01:40)
[2017-10-30] MEDS ORDERED: methylPREDNISolone SOD SUC 125 MG/2 ML VIAL IV STA (01:44)
[2017-10-30] MEDS ORDERED: MEROPENEM 1,000 MG in SODIUM CHLORIDE 0.9% 100 ML IV STA (01:44)
[2017-10-30] MEDS ORDERED: diphenhydrAMINE 50 MG/1 ML VIAL IV STA (01:44)
[2017-10-30] MEDS ORDERED: ONDANSETRON 4 MG/2 ML VIAL IV PRN (04:04)
[2017-10-30] MEDS ORDERED: ACETAMINOPHEN 325 MG TABLET PO PRN (04:04)
[2017-10-30] MEDS ORDERED: ALBUTEROL/IPRATROPIUM 3 ML NEB RESP TX PRN (08:38)
[2017-10-30] MEDS: DOCUSATE SODIUM 100 MG CAPSULE PO SCH ×2 (08:39→21:50)
[2017-10-30] MEDS ORDERED: LANSOPRAZOLE ODT 30 MG TABLET PO SCH (09:00)
[2017-10-30] MEDS ORDERED: MULTIVITAMIN LIQUID (CENTRUM) 60 ML BOTTLE PEG SCH (09:00)
[2017-10-30] MEDS ORDERED: NON-FORMULARY MEDICATION (Cranberry Fruit Extract [Cranberry] 500 MG) PEG SCH (09:00)
[2017-10-30] MEDS ORDERED: PANTOPRAZOLE 40 MG TABLET PO SCH (09:00)
[2017-10-30] MEDS: GLYCOPYRROLATE 1 MG TABLET PEG SCH ×2 (09:25→21:48)
[2017-10-30] MEDS: ACETAMINOPHEN 500 MG TABLET PEG SCH ×2 (09:25→21:50)
[2017-10-30] MEDS: LANSOPRAZOLE ODT 30 MG TABLET PEG SCH (09:26)
[2017-10-30] MEDS: LACTOBACILLUS ACIDOPHILUS/BULGARICUS CAPLET PEG SCH ×2 (09:26→21:47)
[2017-10-30] MEDS: NEBIVOLOL 5 MG TABLET PEG SCH (09:26)
[2017-10-30] MEDS: LORATADINE 10 MG TABLET PEG SCH (09:26)
[2017-10-30] MEDS: ASPIRIN 325 MG TABLET PEG SCH (09:26)
[2017-10-30] MEDS: MEROPENEM 1,000 MG in SYRINGE 1 EACH IV SCH ×2 (09:27→21:52)
[2017-10-30] MEDS: CLINDAMYCIN INJ 600 MG in PREMIX 1 EACH IV SCH ×2 (09:27→16:31)
[2017-10-30] MEDS: SUCRALFATE 1 GM TABLET PEG SCH ×2 (09:27→21:47)
[2017-10-30] MEDS: IPRATROPIUM 0.06% NASAL SPRAY 15 ML BOTTLE BOTH NARES SCH ×3 (09:27→21:51)
[2017-10-30] MEDS: FLUTICASONE 50 MCG NASAL SPRAY 16 GM BOTTLE BOTH NARES SCH (09:27)
[2017-10-30] MEDS: CYANOCOBALAMIN 500 MCG TABLET PEG SCH ×2 (09:33→11:38)
[2017-10-30] MEDS: MULTIVITAMIN LIQUID (CENTRUM) 60 ML BOTTLE PEG SCH (11:37)
[2017-10-30] MEDS: NYSTATIN POWDER 15 GM BOTTLE TOP SCH ×2 (14:02→21:51)
[2017-10-30] MEDS: ZINC OXIDE PASTE 113 GM TUBE TOP SCH ×2 (14:02→21:51)
[2017-10-30] MEDS: MEGESTROL 400 MG/10 ML UDCUP PEG SCH (21:44)
[2017-10-30] MEDS: POTASSIUM CHLORIDE 20 MEQ/15 ML UDCUP PEG SCH (21:45)
[2017-10-30] MEDS: CHOLECALCIFEROL 5,000 UNIT TABLET PEG SCH (21:47)
[2017-10-30] MEDS: MAGNESIUM OXIDE 400 MG TABLET PEG SCH (21:48)
[2017-10-30] MEDS: LOVASTATIN 20 MG TABLET PEG SCH (21:49)
[2017-10-30] MEDS: TOPIRAMATE 25 MG TABLET PEG SCH (21:49)
[2017-10-30] MEDS: traMADol 50 MG TABLET PEG SCH (21:49)
[2017-10-30] MEDS: DONEPEZIL 5 MG TABLET PEG SCH (21:50)
[2017-10-31] MEDS: CLINDAMYCIN INJ 600 MG in PREMIX 1 EACH IV SCH ×3 (00:01→17:17)
[2017-10-31 04:40] LABS: Calcium 9.3 MG/DL (8.5-10.1); Potassium 4.2 MMOL/L (3.5-5.1); Prealbumin 17.3 MG/DL (20-40)
[2017-10-31] MEDS: CYANOCOBALAMIN 500 MCG TABLET PEG SCH (09:37)
[2017-10-31] MEDS: MEROPENEM 1,000 MG in SYRINGE 1 EACH IV SCH ×2 (09:37→21:47)
[2017-10-31] MEDS: LANSOPRAZOLE ODT 30 MG TABLET PEG SCH (09:38)
[2017-10-31] MEDS: ACETAMINOPHEN 500 MG TABLET PEG SCH ×2 (09:38→21:34)
[2017-10-31] MEDS: GLYCOPYRROLATE 1 MG TABLET PEG SCH ×2 (09:38→21:33)
[2017-10-31] MEDS: ASPIRIN 325 MG TABLET PEG SCH (09:38)
[2017-10-31] MEDS: IPRATROPIUM 0.06% NASAL SPRAY 15 ML BOTTLE BOTH NARES SCH ×2 (09:39→21:46)
[2017-10-31] MEDS: DOCUSATE SODIUM 100 MG CAPSULE PO SCH ×2 (09:39→21:46)
[2017-10-31] MEDS: SUCRALFATE 1 GM TABLET PEG SCH ×2 (09:39→21:33)
[2017-10-31] MEDS: LORATADINE 10 MG TABLET PEG SCH (09:39)
[2017-10-31] MEDS: LACTOBACILLUS ACIDOPHILUS/BULGARICUS CAPLET PEG SCH ×2 (09:39→21:33)
[2017-10-31] MEDS: NEBIVOLOL 5 MG TABLET PEG SCH (09:39)
[2017-10-31] MEDS: NYSTATIN POWDER 15 GM BOTTLE TOP SCH ×2 (09:40→21:51)
[2017-10-31] MEDS: MULTIVITAMIN LIQUID (CENTRUM) 60 ML BOTTLE PEG SCH (09:40)
[2017-10-31] MEDS: FLUTICASONE 50 MCG NASAL SPRAY 16 GM BOTTLE BOTH NARES SCH (09:40)
[2017-10-31] MEDS: ZINC OXIDE PASTE 113 GM TUBE TOP SCH ×2 (09:40→21:46)
[2017-10-31] MEDS: MAGNESIUM OXIDE 400 MG TABLET PEG SCH (21:33)
[2017-10-31] MEDS: CHOLECALCIFEROL 5,000 UNIT TABLET PEG SCH (21:33)
[2017-10-31] MEDS: LOVASTATIN 20 MG TABLET PEG SCH (21:34)
[2017-10-31] MEDS: TOPIRAMATE 25 MG TABLET PEG SCH (21:34)
[2017-10-31] MEDS: DONEPEZIL 5 MG TABLET PEG SCH (21:34)
[2017-10-31] MEDS: MEGESTROL 400 MG/10 ML UDCUP PEG SCH (21:35)
[2017-10-31] MEDS: POTASSIUM CHLORIDE 20 MEQ/15 ML UDCUP PEG SCH (21:35)
[2017-10-31] MEDS: POLYETHYLENE GLYCOL POWDER 17 GM PACK PEG PRN (21:35)
[2017-11-01] MEDS: CLINDAMYCIN INJ 600 MG in PREMIX 1 EACH IV SCH ×3 (00:49→16:58)
[2017-11-01 05:09] LABS: Basophils % 0.4 % (0.0-0.8); Eosinophils # 0.1 10*3/uL (0.0-0.87); Hematocrit 33.5 VOL% (35.7-47.0); Hemoglobin 10.8 GM/DL (12.0-16.0); Immature Granulocytes % 1.1 %; Immature Granulocytes Absolute 0.11 #; Lymphocytes # 1.4 10*3/uL (1.4-4.0); Lymphocytes % 13.6 % (21.3-54.2); Mean Corpuscular HGB Conc 32.2 GM/DL (32-36); Mean Corpuscular Hemoglobin 28 PG (27-34); Mean Corpuscular Volume 86.1 FL (87-102); Monocytes # 0.7 10*3/uL (0.11-0.8); Monocytes % 7.4 % (1.7-12.7); Neutrophils # 7.6 10*3/uL (1.4-7.4); Neutrophils % 76.5 % (38.7-73.9); Platelet Count 366 T/CUMM (130-400); Red Blood Count 3.89 MC/CUMM (3.8-5.5); Red Cell Distribution Width 16.6 % (9.3-17.3); White Blood Count 9.9 T/CUMM (4-12)
[2017-11-01] MEDS: IPRATROPIUM 0.06% NASAL SPRAY 15 ML BOTTLE BOTH NARES SCH ×2 (10:01→21:11)
[2017-11-01] MEDS: ASPIRIN 325 MG TABLET PEG SCH (10:01)
[2017-11-01] MEDS: NEBIVOLOL 5 MG TABLET PEG SCH (10:02)
[2017-11-01] MEDS: SUCRALFATE 1 GM TABLET PEG SCH ×2 (10:02→21:09)
[2017-11-01] MEDS: LACTOBACILLUS ACIDOPHILUS/BULGARICUS CAPLET PEG SCH ×2 (10:02→21:09)
[2017-11-01] MEDS: LORATADINE 10 MG TABLET PEG SCH (10:03)
[2017-11-01] MEDS: FLUTICASONE 50 MCG NASAL SPRAY 16 GM BOTTLE BOTH NARES SCH (10:04)
[2017-11-01] MEDS: NYSTATIN POWDER 15 GM BOTTLE TOP SCH ×2 (10:04→21:11)
[2017-11-01] MEDS: MEROPENEM 1,000 MG in SYRINGE 1 EACH IV SCH ×2 (10:04→21:30)
[2017-11-01] MEDS: DOCUSATE SODIUM 100 MG CAPSULE PO SCH ×2 (10:04→21:11)
[2017-11-01] MEDS: ZINC OXIDE PASTE 113 GM TUBE TOP SCH ×2 (10:04→21:11)
[2017-11-01] MEDS: ACETAMINOPHEN 500 MG TABLET PEG SCH ×2 (10:05→21:11)
[2017-11-01] MEDS: LANSOPRAZOLE ODT 30 MG TABLET PEG SCH (10:05)
[2017-11-01] MEDS: GLYCOPYRROLATE 1 MG TABLET PEG SCH ×2 (10:05→21:08)
[2017-11-01] MEDS: CYANOCOBALAMIN 500 MCG TABLET PEG SCH (10:07)
[2017-11-01] MEDS: MULTIVITAMIN LIQUID (CENTRUM) 60 ML BOTTLE PEG SCH (10:11)
[2017-11-01] MEDS: FLUCONAZOLE 200 MG TABLET PO SCH (10:12)
[2017-11-01] MEDS: CHOLECALCIFEROL 5,000 UNIT TABLET PEG SCH (21:08)
[2017-11-01] MEDS: MAGNESIUM OXIDE 400 MG TABLET PEG SCH (21:08)
[2017-11-01] MEDS: traMADol 50 MG TABLET PEG SCH (21:09)
[2017-11-01] MEDS: TOPIRAMATE 25 MG TABLET PEG SCH (21:09)
[2017-11-01] MEDS: LOVASTATIN 20 MG TABLET PEG SCH (21:10)
[2017-11-01] MEDS: DONEPEZIL 5 MG TABLET PEG SCH (21:10)
[2017-11-01] MEDS: POTASSIUM CHLORIDE 20 MEQ/15 ML UDCUP PEG SCH (21:10)
[2017-11-01] MEDS: MEGESTROL 400 MG/10 ML UDCUP PEG SCH (21:11)
[2017-11-02] MEDS: CLINDAMYCIN INJ 600 MG in PREMIX 1 EACH IV SCH ×3 (00:26→16:31)
[2017-11-02 06:03] LABS: Calcium 9.6 MG/DL (8.5-10.1); Osmolality,Calculated 283.4 MOS/KG (273-304); Potassium 4.8 MMOL/L (3.5-5.1)
[2017-11-02 08:23] LABS: Basophils % 0.2 % (0.0-0.8); Eosinophils # 0.3 10*3/uL (0.0-0.87); Eosinophils % 2.5 % (0.00-10.9); Hemoglobin 11.2 GM/DL (12.0-16.0); Immature Granulocytes % 1.1 %; Immature Granulocytes Absolute 0.11 #; Lymphocytes # 1.6 10*3/uL (1.4-4.0); Lymphocytes % 15.8 % (21.3-54.2); Mean Corpuscular Hemoglobin 28 PG (27-34); Mean Corpuscular Volume 86.6 FL (87-102); Mean Platelet Volume 8.7 FL (9.6-12.0); Monocytes # 0.8 10*3/uL (0.11-0.8); Neutrophils # 7.3 10*3/uL (1.4-7.4); Neutrophils % 72.4 % (38.7-73.9); Platelet Count 355 T/CUMM (130-400); Red Blood Count 4.04 MC/CUMM (3.8-5.5); Red Cell Distribution Width 16.7 % (9.3-17.3); White Blood Count 10.1 T/CUMM (4-12)
[2017-11-02] MEDS: MEROPENEM 1,000 MG in SYRINGE 1 EACH IV SCH ×2 (08:40→21:47)
[2017-11-02] MEDS: LANSOPRAZOLE ODT 30 MG TABLET PEG SCH (08:41)
[2017-11-02] MEDS: GLYCOPYRROLATE 1 MG TABLET PEG SCH ×2 (08:41→21:46)
[2017-11-02] MEDS: LORATADINE 10 MG TABLET PEG SCH (08:41)
[2017-11-02] MEDS: NEBIVOLOL 5 MG TABLET PEG SCH (08:41)
[2017-11-02] MEDS: ASPIRIN 325 MG TABLET PEG SCH (08:41)
[2017-11-02] MEDS: SUCRALFATE 1 GM TABLET PEG SCH ×2 (08:42→21:46)
[2017-11-02] MEDS: LACTOBACILLUS ACIDOPHILUS/BULGARICUS CAPLET PEG SCH ×2 (08:42→21:46)
[2017-11-02] MEDS: FLUCONAZOLE 200 MG TABLET PO SCH (08:42)
[2017-11-02] MEDS: ACETAMINOPHEN 500 MG TABLET PEG SCH ×2 (08:42→21:45)
[2017-11-02] MEDS: DOCUSATE SODIUM 100 MG CAPSULE PO SCH ×2 (08:42→21:46)
[2017-11-02] MEDS: MULTIVITAMIN LIQUID (CENTRUM) 60 ML BOTTLE PEG SCH (08:49)
[2017-11-02] MEDS: IPRATROPIUM 0.06% NASAL SPRAY 15 ML BOTTLE BOTH NARES SCH ×2 (08:49→21:46)
[2017-11-02] MEDS: ZINC OXIDE PASTE 113 GM TUBE TOP SCH ×2 (08:49→21:52)
[2017-11-02] MEDS: NYSTATIN POWDER 15 GM BOTTLE TOP SCH ×2 (08:50→21:52)
[2017-11-02] MEDS: FLUTICASONE 50 MCG NASAL SPRAY 16 GM BOTTLE BOTH NARES SCH (08:50)
[2017-11-02 09:22] LABS: Band Neutrophils 1 % (0-10); Eosinophils 4 % (0-10); Hypochromasia 1+; Lymphocytes 16 % (20-55); Ovalocytes Slight; Platelet Estimate Adequate; Segmented Neutrophils 76 % (50-85); Total Cells Counted 100
[2017-11-02] MEDS: CYANOCOBALAMIN 500 MCG TABLET PEG SCH (10:19)
[2017-11-02] MEDS: DONEPEZIL 5 MG TABLET PEG SCH (21:46)
[2017-11-02] MEDS: LOVASTATIN 20 MG TABLET PEG SCH (21:46)
[2017-11-02] MEDS: MAGNESIUM OXIDE 400 MG TABLET PEG SCH (21:46)
[2017-11-02] MEDS: TOPIRAMATE 25 MG TABLET PEG SCH (21:46)
[2017-11-02] MEDS: POTASSIUM CHLORIDE 20 MEQ/15 ML UDCUP PEG SCH (21:47)
[2017-11-02] MEDS: MEGESTROL 400 MG/10 ML UDCUP PEG SCH (21:47)
[2017-11-02] MEDS: CHOLECALCIFEROL 5,000 UNIT TABLET PEG SCH (21:47)
[2017-11-03] MEDS: CLINDAMYCIN INJ 600 MG in PREMIX 1 EACH IV SCH ×3 (02:00→16:51)
[2017-11-03 09:23] LABS: Basophils % 0.3 % (0.0-0.8); Eosinophils % 3.1 % (0.00-10.9); Hematocrit 34.4 VOL% (35.7-47.0); Hemoglobin 11.1 GM/DL (12.0-16.0); Immature Granulocytes % 0.9 %; Lymphocytes % 16.2 % (21.3-54.2); Mean Corpuscular HGB Conc 32.3 GM/DL (32-36); Mean Corpuscular Hemoglobin 28 PG (27-34); Mean Corpuscular Volume 86.9 FL (87-102); Mean Platelet Volume 8.7 FL (9.6-12.0); Monocytes % 7.4 % (1.7-12.7); Neutrophils # 6.5 10*3/uL (1.4-7.4); Neutrophils % 72.1 % (38.7-73.9); Platelet Count 317 T/CUMM (130-400); Red Blood Count 3.96 MC/CUMM (3.8-5.5); Red Cell Distribution Width 16.5 % (9.3-17.3); White Blood Count 9.1 T/CUMM (4-12)
[2017-11-03 09:24] LABS: Eosinophils # 0.3 10*3/uL (0.0-0.87); Immature Granulocytes Absolute 0.08 #; Lymphocytes # 1.5 10*3/uL (1.4-4.0); Monocytes # 0.7 10*3/uL (0.11-0.8)
[2017-11-03] MEDS: ACETAMINOPHEN 500 MG TABLET PEG SCH ×2 (09:33→22:06)
[2017-11-03] MEDS: ASPIRIN 325 MG TABLET PEG SCH (09:33)
[2017-11-03] MEDS: GLYCOPYRROLATE 1 MG TABLET PEG SCH ×2 (09:33→22:06)
[2017-11-03] MEDS: LACTOBACILLUS ACIDOPHILUS/BULGARICUS CAPLET PEG SCH ×2 (09:34→21:51)
[2017-11-03] MEDS: FLUCONAZOLE 200 MG TABLET PO SCH (09:34)
[2017-11-03] MEDS: DOCUSATE SODIUM 100 MG CAPSULE PO SCH ×2 (09:34→21:51)
[2017-11-03] MEDS: LORATADINE 10 MG TABLET PEG SCH (09:34)
[2017-11-03] MEDS: NEBIVOLOL 5 MG TABLET PEG SCH (09:34)
[2017-11-03] MEDS: SUCRALFATE 1 GM TABLET PEG SCH ×2 (09:34→21:51)
[2017-11-03] MEDS: POLYETHYLENE GLYCOL POWDER 17 GM PACK PEG PRN (09:35)
[2017-11-03] MEDS: MULTIVITAMIN LIQUID (CENTRUM) 60 ML BOTTLE PEG SCH (09:35)
[2017-11-03] MEDS: MEROPENEM 1,000 MG in SYRINGE 1 EACH IV SCH ×2 (09:37→22:05)
[2017-11-03 09:47] LABS: Calcium 9.4 MG/DL (8.5-10.1); Osmolality,Calculated 285.3 MOS/KG (273-304); Potassium 4.5 MMOL/L (3.5-5.1)
[2017-11-03 09:51] LABS: Eosinophils 1 % (0-10); Hypochromasia 1+; Lymphocytes 15 % (20-55); Ovalocytes Slight; Platelet Estimate Adequate; Segmented Neutrophils 72 % (50-85); Total Cells Counted 100
[2017-11-03] MEDS: FLUTICASONE 50 MCG NASAL SPRAY 16 GM BOTTLE BOTH NARES SCH (10:00)
[2017-11-03] MEDS: NYSTATIN POWDER 15 GM BOTTLE TOP SCH ×2 (10:00→22:05)
[2017-11-03] MEDS: ZINC OXIDE PASTE 113 GM TUBE TOP SCH ×2 (10:00→22:05)
[2017-11-03] MEDS: IPRATROPIUM 0.06% NASAL SPRAY 15 ML BOTTLE BOTH NARES SCH ×2 (10:00→22:05)
[2017-11-03] MEDS: CYANOCOBALAMIN 500 MCG TABLET PEG SCH (10:02)
[2017-11-03] MEDS: LANSOPRAZOLE ODT 30 MG TABLET PEG SCH (10:02)
[2017-11-03 13:14] LABS: Amorphous Crystals,Urine Occasional /HPF (Few); Apearance,Urine CLOUDY (Clear); Bilirubin,Urine Negative (Negative); Blood, Urine Negative (Negative); Calcium Oxalate Crystals,Urine Occasional /HPF (Few); Glucose,Urine (UA) Negative (Negative); Hyaline Casts,Urine 2 /LPF (0-3); Ketones,Urine 5 mg/dL (Negative); Mucus,Urine Occasional /LPF (Occasional); Nitrite,Urine Negative (Negative); Protein,Urine Negative; RBC,Urine 3 /HPF (0-4); Urine Color Yellow (Yellow); Urine Specific Gravity 1.014 (1.001-1.035); Urine Urobilinogen < 2.0 EU/DL (0.2-1.0); WBC,Urine 48 /HPF (0-6)
[2017-11-03] MEDS: DONEPEZIL 5 MG TABLET PEG SCH (21:51)
[2017-11-03] MEDS: MEGESTROL 400 MG/10 ML UDCUP PEG SCH (21:51)
[2017-11-03] MEDS: traMADol 50 MG TABLET PEG SCH (21:51)
[2017-11-03] MEDS: LOVASTATIN 20 MG TABLET PEG SCH (21:51)
[2017-11-03] MEDS: MAGNESIUM OXIDE 400 MG TABLET PEG SCH (21:51)
[2017-11-03] MEDS: CHOLECALCIFEROL 5,000 UNIT TABLET PEG SCH (21:51)
[2017-11-03] MEDS: TOPIRAMATE 25 MG TABLET PEG SCH (21:51)
[2017-11-03] MEDS: POTASSIUM CHLORIDE 20 MEQ/15 ML UDCUP PEG SCH (22:05)
[2017-11-04] MEDS: CLINDAMYCIN INJ 600 MG in PREMIX 1 EACH IV SCH ×3 (01:10→16:58)
[2017-11-04 05:20] LABS: Calcium 9.6 MG/DL (8.5-10.1); Osmolality,Calculated 284.4 MOS/KG (273-304); Potassium 4.5 MMOL/L (3.5-5.1)
[2017-11-04] MEDS: LACTOBACILLUS ACIDOPHILUS/BULGARICUS CAPLET PEG SCH ×2 (08:42→21:51)
[2017-11-04] MEDS: ASPIRIN 325 MG TABLET PEG SCH (08:42)
[2017-11-04] MEDS: IPRATROPIUM 0.06% NASAL SPRAY 15 ML BOTTLE BOTH NARES SCH ×2 (08:42→22:03)
[2017-11-04] MEDS: LORATADINE 10 MG TABLET PEG SCH (08:43)
[2017-11-04] MEDS: NEBIVOLOL 5 MG TABLET PEG SCH (08:43)
[2017-11-04] MEDS: ZINC OXIDE PASTE 113 GM TUBE TOP SCH ×2 (08:43→22:03)
[2017-11-04] MEDS: MEROPENEM 1,000 MG in SYRINGE 1 EACH IV SCH ×2 (08:43→22:03)
[2017-11-04] MEDS: DOCUSATE SODIUM 100 MG CAPSULE PO SCH ×2 (08:43→21:52)
[2017-11-04] MEDS: SUCRALFATE 1 GM TABLET PEG SCH ×2 (08:43→21:51)
[2017-11-04] MEDS: FLUTICASONE 50 MCG NASAL SPRAY 16 GM BOTTLE BOTH NARES SCH (08:43)
[2017-11-04] MEDS: LANSOPRAZOLE ODT 30 MG TABLET PEG SCH (08:44)
[2017-11-04] MEDS: GLYCOPYRROLATE 1 MG TABLET PEG SCH ×2 (08:44→21:51)
[2017-11-04] MEDS: ACETAMINOPHEN 500 MG TABLET PEG SCH ×2 (08:44→21:52)
[2017-11-04] MEDS: NYSTATIN POWDER 15 GM BOTTLE TOP SCH ×2 (08:44→22:03)
[2017-11-04] MEDS: CYANOCOBALAMIN 500 MCG TABLET PEG SCH (08:44)
[2017-11-04] MEDS: MULTIVITAMIN LIQUID (CENTRUM) 60 ML BOTTLE PEG SCH (10:47)
[2017-11-04] MEDS ORDERED: BISACODYL 10 MG SUPP RECTAL ONE (16:07)
[2017-11-04] MEDS ORDERED: BISACODYL 10 MG SUPP RECTAL PRN (16:07)
[2017-11-04] MEDS: MAGNESIUM OXIDE 400 MG TABLET PEG SCH (21:51)
[2017-11-04] MEDS: CHOLECALCIFEROL 5,000 UNIT TABLET PEG SCH (21:51)
[2017-11-04] MEDS: MEGESTROL 400 MG/10 ML UDCUP PEG SCH (21:52)
[2017-11-04] MEDS: DONEPEZIL 5 MG TABLET PEG SCH (21:52)
[2017-11-04] MEDS: LOVASTATIN 20 MG TABLET PEG SCH (21:52)
[2017-11-04] MEDS: TOPIRAMATE 25 MG TABLET PEG SCH (21:52)
[2017-11-04] MEDS: POTASSIUM CHLORIDE 20 MEQ/15 ML UDCUP PEG SCH (21:53)
[2017-11-05] MEDS: CLINDAMYCIN INJ 600 MG in PREMIX 1 EACH IV SCH ×3 (00:32→16:18)
[2017-11-05 05:30] LABS: Calcium 9.4 MG/DL (8.5-10.1); Osmolality,Calculated 280.8 MOS/KG (273-304); Potassium 4.8 MMOL/L (3.5-5.1)
[2017-11-05 08:12] LABS: Basophils # 0.1 10*3/uL (0.0-0.2); Basophils % 0.3 % (0.0-0.8); Eosinophils # 0.2 10*3/uL (0.0-0.87); Eosinophils % 0.6 % (0.00-10.9); Immature Granulocytes % 1.9 %; Immature Granulocytes Absolute 0.67 #; Lymphocytes % 5.7 % (21.3-54.2); Mean Corpuscular HGB Conc 32.2 GM/DL (32-36); Mean Corpuscular Hemoglobin 28 PG (27-34); Monocytes # 2.8 10*3/uL (0.11-0.8); Monocytes % 7.8 % (1.7-12.7); Neutrophils # 29.8 10*3/uL (1.4-7.4); Neutrophils % 83.7 % (38.7-73.9); Red Blood Count 4.71 MC/CUMM (3.8-5.5); Red Cell Distribution Width 16.9 % (9.3-17.3)
[2017-11-05 08:13] LABS: Hemoglobin 13.2 GM/DL (12.0-16.0); Platelet Count 479 T/CUMM (130-400); White Blood Count 35.5 T/CUMM (4-12)
[2017-11-05 08:27] LABS: Band Neutrophils 6 % (0-10); Eosinophils 1 % (0-10); Lymphocytes 5 % (20-55); Segmented Neutrophils 80 % (50-85); Total Cells Counted 100
[2017-11-05 08:28] LABS: Hypochromasia 1+; Microcytosis 1+
[2017-11-05] MEDS: ACETAMINOPHEN 500 MG TABLET PEG SCH ×2 (08:45→21:17)
[2017-11-05] MEDS: SODIUM CHLORIDE 0.9% 1,000 ML IV SCH ×2 (08:45→14:40)
[2017-11-05] MEDS: GLYCOPYRROLATE 1 MG TABLET PEG SCH ×2 (08:46→21:16)
[2017-11-05] MEDS: MEROPENEM 1,000 MG in SYRINGE 1 EACH IV SCH ×2 (08:46→21:26)
[2017-11-05] MEDS: ASPIRIN 325 MG TABLET PEG SCH (08:46)
[2017-11-05] MEDS: CYANOCOBALAMIN 500 MCG TABLET PEG SCH (08:46)
[2017-11-05] MEDS: LORATADINE 10 MG TABLET PEG SCH (08:47)
[2017-11-05] MEDS: LACTOBACILLUS ACIDOPHILUS/BULGARICUS CAPLET PEG SCH ×2 (08:47→21:17)
[2017-11-05] MEDS: SUCRALFATE 1 GM TABLET PEG SCH ×2 (08:47→21:16)
[2017-11-05] MEDS: LANSOPRAZOLE ODT 30 MG TABLET PEG SCH (08:48)
[2017-11-05] MEDS: DOCUSATE SODIUM 100 MG CAPSULE PO SCH ×2 (08:48→21:14)
[2017-11-05] MEDS: MULTIVITAMIN LIQUID (CENTRUM) 60 ML BOTTLE PEG SCH (08:49)
[2017-11-05] MEDS: NYSTATIN POWDER 15 GM BOTTLE TOP SCH ×2 (08:50→21:19)
[2017-11-05] MEDS: NEBIVOLOL 5 MG TABLET PEG SCH (08:50)
[2017-11-05] MEDS: IPRATROPIUM 0.06% NASAL SPRAY 15 ML BOTTLE BOTH NARES SCH ×2 (08:50→21:18)
[2017-11-05] MEDS: ZINC OXIDE PASTE 113 GM TUBE TOP SCH ×2 (08:51→21:18)
[2017-11-05] MEDS: FLUTICASONE 50 MCG NASAL SPRAY 16 GM BOTTLE BOTH NARES SCH (08:51)
[2017-11-05] MEDS ORDERED: SODIUM CHLORIDE 0.9% 500 ML IV ONE ×2 (10:28→12:47)
[2017-11-05 14:41] LABS: Basophils # 0.1 10*3/uL (0.0-0.2); Basophils % 0.2 % (0.0-0.8); Eosinophils % 0.1 % (0.00-10.9); Hematocrit 37.9 VOL% (35.7-47.0); Hemoglobin 12.2 GM/DL (12.0-16.0); Immature Granulocytes % 1.8 %; Immature Granulocytes Absolute 0.54 #; Lymphocytes # 1.9 10*3/uL (1.4-4.0); Lymphocytes % 6.2 % (21.3-54.2); Mean Corpuscular HGB Conc 32.2 GM/DL (32-36); Mean Corpuscular Hemoglobin 28 PG (27-34); Mean Corpuscular Volume 85.7 FL (87-102); Mean Platelet Volume 9.6 FL (9.6-12.0); Monocytes # 2.3 10*3/uL (0.11-0.8); Monocytes % 7.7 % (1.7-12.7); Neutrophils # 25.1 10*3/uL (1.4-7.4); Platelet Count 450 T/CUMM (130-400); Red Blood Count 4.42 MC/CUMM (3.8-5.5); Red Cell Distribution Width 16.7 % (9.3-17.3); White Blood Count 29.9 T/CUMM (4-12)
[2017-11-05 15:06] LABS: Calcium 9.6 MG/DL (8.5-10.1); Osmolality,Calculated 283.7 MOS/KG (273-304); Potassium 5.4 MMOL/L (3.5-5.1)
[2017-11-05 15:22] LABS: Band Neutrophils 3 % (0-10); Lymphocytes 2 % (20-55); Platelet Estimate Normal; Polychromasia Few; Segmented Neutrophils 91 % (50-85); Total Cells Counted 100
[2017-11-05 15:27] LABS: Albumin 1.8 G/DL (3.4-5.0); Bilirubin,Direct 0.19 MG/DL (0.0-0.20); Bilirubin,Indirect 0.3 MG/DL (0.0-1.0); Bilirubin,Total 0.5 MG/DL (0.2-1.0)
[2017-11-05] MEDS: MEGESTROL 400 MG/10 ML UDCUP PEG SCH (21:14)
[2017-11-05] MEDS: POTASSIUM CHLORIDE 20 MEQ/15 ML UDCUP PEG SCH (21:14)
[2017-11-05] MEDS: MAGNESIUM OXIDE 400 MG TABLET PEG SCH (21:16)
[2017-11-05] MEDS: CHOLECALCIFEROL 5,000 UNIT TABLET PEG SCH (21:16)
[2017-11-05] MEDS: LOVASTATIN 20 MG TABLET PEG SCH (21:17)
[2017-11-05] MEDS: traMADol 50 MG TABLET PEG SCH (21:17)
[2017-11-05] MEDS: DONEPEZIL 5 MG TABLET PEG SCH (21:17)
[2017-11-05] MEDS: TOPIRAMATE 25 MG TABLET PEG SCH (21:17)
[2017-11-06] MEDS: SODIUM CHLORIDE 0.9% 1,000 ML IV SCH ×3 (00:54→18:07)
[2017-11-06] MEDS: CLINDAMYCIN INJ 600 MG in PREMIX 1 EACH IV SCH ×3 (00:54→17:59)
[2017-11-06 06:19] LABS: Basophils % 0.2 % (0.0-0.8); Eosinophils % 0.2 % (0.00-10.9); Hematocrit 31.1 VOL% (35.7-47.0); Immature Granulocytes % 0.9 %; Immature Granulocytes Absolute 0.18 #; Lymphocytes # 1.7 10*3/uL (1.4-4.0); Lymphocytes % 8.7 % (21.3-54.2); Mean Corpuscular HGB Conc 32.2 GM/DL (32-36); Mean Corpuscular Hemoglobin 28 PG (27-34); Mean Corpuscular Volume 87.1 FL (87-102); Mean Platelet Volume 9.9 FL (9.6-12.0); Monocytes # 1.3 10*3/uL (0.11-0.8); Monocytes % 6.5 % (1.7-12.7); Neutrophils # 16.1 10*3/uL (1.4-7.4); Neutrophils % 83.5 % (38.7-73.9); Platelet Count 380 T/CUMM (130-400); Red Blood Count 3.57 MC/CUMM (3.8-5.5); Red Cell Distribution Width 16.9 % (9.3-17.3); White Blood Count 19.2 T/CUMM (4-12)
[2017-11-06 06:39] LABS: Osmolality,Calculated 286.5 MOS/KG (273-304); Potassium 5.5 MMOL/L (3.5-5.1)
[2017-11-06] MEDS: MEROPENEM 1,000 MG in SYRINGE 1 EACH IV SCH ×2 (10:12→20:39)
[2017-11-06] MEDS: CYANOCOBALAMIN 500 MCG TABLET PEG SCH (10:14)
[2017-11-06] MEDS: GLYCOPYRROLATE 1 MG TABLET PEG SCH ×2 (10:15→21:29)
[2017-11-06] MEDS: ACETAMINOPHEN 500 MG TABLET PEG SCH ×2 (10:15→22:10)
[2017-11-06] MEDS: SUCRALFATE 1 GM TABLET PEG SCH ×2 (10:15→21:29)
[2017-11-06] MEDS: LORATADINE 10 MG TABLET PEG SCH (10:16)
[2017-11-06] MEDS: LANSOPRAZOLE ODT 30 MG TABLET PEG SCH (10:16)
[2017-11-06] MEDS: NEBIVOLOL 5 MG TABLET PEG SCH (10:16)
[2017-11-06] MEDS: LACTOBACILLUS ACIDOPHILUS/BULGARICUS CAPLET PEG SCH ×2 (10:17→21:29)
[2017-11-06] MEDS: IPRATROPIUM 0.06% NASAL SPRAY 15 ML BOTTLE BOTH NARES SCH ×2 (10:17→21:29)
[2017-11-06] MEDS: MULTIVITAMIN LIQUID (CENTRUM) 60 ML BOTTLE PEG SCH (10:17)
[2017-11-06] MEDS: FLUTICASONE 50 MCG NASAL SPRAY 16 GM BOTTLE BOTH NARES SCH (10:17)
[2017-11-06] MEDS: ZINC OXIDE PASTE 113 GM TUBE TOP SCH ×2 (10:18→21:29)
[2017-11-06] MEDS: DOCUSATE SODIUM 100 MG CAPSULE PO SCH (10:18)
[2017-11-06] MEDS: NYSTATIN POWDER 15 GM BOTTLE TOP SCH ×2 (10:19→22:10)
[2017-11-06] MEDS: POLYETHYLENE GLYCOL POWDER 17 GM PACK PO SCH (16:59)
[2017-11-06] MEDS: TOPIRAMATE 25 MG TABLET PEG SCH (21:28)
[2017-11-06] MEDS: LOVASTATIN 20 MG TABLET PEG SCH (21:29)
[2017-11-06] MEDS: DONEPEZIL 5 MG TABLET PEG SCH (21:29)
[2017-11-06] MEDS: CHOLECALCIFEROL 5,000 UNIT TABLET PEG SCH (21:29)
[2017-11-07] MEDS: CLINDAMYCIN INJ 600 MG in PREMIX 1 EACH IV SCH ×3 (00:45→17:25)
[2017-11-07 05:22] LABS: Basophils % 0.2 % (0.0-0.8); Eosinophils # 0.1 10*3/uL (0.0-0.87); Eosinophils % 1.2 % (0.00-10.9); Hematocrit 28.2 VOL% (35.7-47.0); Hemoglobin 8.7 GM/DL (12.0-16.0); Immature Granulocytes % 0.7 %; Immature Granulocytes Absolute 0.08 #; Lymphocytes # 1.2 10*3/uL (1.4-4.0); Lymphocytes % 10.7 % (21.3-54.2); Mean Corpuscular HGB Conc 30.9 GM/DL (32-36); Mean Corpuscular Hemoglobin 28 PG (27-34); Mean Corpuscular Volume 89.5 FL (87-102); Mean Platelet Volume 9.2 FL (9.6-12.0); Monocytes # 0.8 10*3/uL (0.11-0.8); Monocytes % 7.7 % (1.7-12.7); Neutrophils # 8.7 10*3/uL (1.4-7.4); Neutrophils % 79.5 % (38.7-73.9); Platelet Count 309 T/CUMM (130-400); Red Blood Count 3.15 MC/CUMM (3.8-5.5); Red Cell Distribution Width 16.9 % (9.3-17.3); White Blood Count 10.9 T/CUMM (4-12)
[2017-11-07 06:26] LABS: Calcium 8.4 MG/DL (8.5-10.1); Osmolality,Calculated 289.1 MOS/KG (273-304); Potassium 3.9 MMOL/L (3.5-5.1)
[2017-11-07] MEDS: MEROPENEM 1,000 MG in SYRINGE 1 EACH IV SCH ×2 (10:12→22:39)
[2017-11-07] MEDS: NEBIVOLOL 5 MG TABLET PEG SCH (10:14)
[2017-11-07] MEDS: SUCRALFATE 1 GM TABLET PEG SCH ×2 (10:14→21:44)
[2017-11-07] MEDS: GLYCOPYRROLATE 1 MG TABLET PEG SCH ×2 (10:14→21:45)
[2017-11-07] MEDS: LACTOBACILLUS ACIDOPHILUS/BULGARICUS CAPLET PEG SCH ×2 (10:14→21:44)
[2017-11-07] MEDS: LORATADINE 10 MG TABLET PEG SCH (10:15)
[2017-11-07] MEDS: LANSOPRAZOLE ODT 30 MG TABLET PEG SCH (10:15)
[2017-11-07] MEDS: POLYETHYLENE GLYCOL POWDER 17 GM PACK PO SCH (10:15)
[2017-11-07] MEDS: ACETAMINOPHEN 500 MG TABLET PEG SCH ×2 (10:15→21:44)
[2017-11-07] MEDS: FLUTICASONE 50 MCG NASAL SPRAY 16 GM BOTTLE BOTH NARES SCH (10:15)
[2017-11-07] MEDS: ZINC OXIDE PASTE 113 GM TUBE TOP SCH ×2 (10:16→21:45)
[2017-11-07] MEDS: IPRATROPIUM 0.06% NASAL SPRAY 15 ML BOTTLE BOTH NARES SCH ×2 (10:16→21:45)
[2017-11-07] MEDS: MULTIVITAMIN LIQUID (CENTRUM) 60 ML BOTTLE PEG SCH (10:16)
[2017-11-07] MEDS: SODIUM CHLORIDE 0.9% 1,000 ML IV SCH (10:17)
[2017-11-07] MEDS: CYANOCOBALAMIN 500 MCG TABLET PEG SCH (10:18)
[2017-11-07] MEDS: NYSTATIN POWDER 15 GM BOTTLE TOP SCH ×2 (10:18→21:45)
[2017-11-07] MEDS: CHOLECALCIFEROL 5,000 UNIT TABLET PEG SCH (21:44)
[2017-11-07] MEDS: DONEPEZIL 5 MG TABLET PEG SCH (21:44)
[2017-11-07] MEDS: TOPIRAMATE 25 MG TABLET PEG SCH (21:44)
[2017-11-07] MEDS: LOVASTATIN 20 MG TABLET PEG SCH (21:44)
[2017-11-08] MEDS: CLINDAMYCIN INJ 600 MG in PREMIX 1 EACH IV SCH ×3 (00:50→18:15)
[2017-11-08 05:56] LABS: Basophils % 0.2 % (0.0-0.8); Eosinophils # 0.1 10*3/uL (0.0-0.87); Eosinophils % 1.3 % (0.00-10.9); Hematocrit 29.7 VOL% (35.7-47.0); Hemoglobin 9.4 GM/DL (12.0-16.0); Immature Granulocytes % 1.2 %; Lymphocytes # 1.7 10*3/uL (1.4-4.0); Lymphocytes % 19.9 % (21.3-54.2); Mean Corpuscular HGB Conc 31.6 GM/DL (32-36); Mean Corpuscular Hemoglobin 28 PG (27-34); Mean Corpuscular Volume 88.1 FL (87-102); Mean Platelet Volume 9.3 FL (9.6-12.0); Monocytes # 0.7 10*3/uL (0.11-0.8); Monocytes % 7.8 % (1.7-12.7); Neutrophils # 5.9 10*3/uL (1.4-7.4); Neutrophils % 69.6 % (38.7-73.9); Platelet Count 298 T/CUMM (130-400); Red Blood Count 3.37 MC/CUMM (3.8-5.5); Red Cell Distribution Width 16.7 % (9.3-17.3); White Blood Count 8.5 T/CUMM (4-12)
[2017-11-08 06:21] LABS: Calcium 8.8 MG/DL (8.5-10.1); Potassium 4.3 MMOL/L (3.5-5.1)
[2017-11-08] MEDS ORDERED: B12 5000 MCG PEG SCH (09:00)
[2017-11-08] MEDS: MEROPENEM 1,000 MG in SYRINGE 1 EACH IV SCH ×2 (10:49→21:25)
[2017-11-08] MEDS: GLYCOPYRROLATE 1 MG TABLET PEG SCH ×2 (10:50→21:44)
[2017-11-08] MEDS: NEBIVOLOL 5 MG TABLET PEG SCH (10:51)
[2017-11-08] MEDS: SUCRALFATE 1 GM TABLET PEG SCH ×2 (10:51→21:44)
[2017-11-08] MEDS: MULTIVITAMIN LIQUID (CENTRUM) 60 ML BOTTLE PEG SCH (10:52)
[2017-11-08] MEDS: LANSOPRAZOLE ODT 30 MG TABLET PEG SCH (10:52)
[2017-11-08] MEDS: LACTOBACILLUS ACIDOPHILUS/BULGARICUS CAPLET PEG SCH ×2 (10:52→21:44)
[2017-11-08] MEDS: IPRATROPIUM 0.06% NASAL SPRAY 15 ML BOTTLE BOTH NARES SCH ×2 (10:52→21:44)
[2017-11-08] MEDS: LORATADINE 10 MG TABLET PEG SCH (10:52)
[2017-11-08] MEDS: ZINC OXIDE PASTE 113 GM TUBE TOP SCH ×2 (10:53→21:44)
[2017-11-08] MEDS: POLYETHYLENE GLYCOL POWDER 17 GM PACK PO SCH (10:53)
[2017-11-08] MEDS: FLUTICASONE 50 MCG NASAL SPRAY 16 GM BOTTLE BOTH NARES SCH (10:53)
[2017-11-08] MEDS: NYSTATIN POWDER 15 GM BOTTLE TOP SCH ×2 (10:53→21:44)
[2017-11-08] MEDS: ACETAMINOPHEN 500 MG TABLET PEG SCH ×2 (10:53→21:43)
[2017-11-08] MEDS: DONEPEZIL 5 MG TABLET PEG SCH (21:44)
[2017-11-08] MEDS: LOVASTATIN 20 MG TABLET PEG SCH (21:44)
[2017-11-08] MEDS: TOPIRAMATE 25 MG TABLET PEG SCH (21:44)
[2017-11-08] MEDS: CHOLECALCIFEROL 5,000 UNIT TABLET PEG SCH (21:44)
[2017-11-09] MEDS: CLINDAMYCIN INJ 600 MG in PREMIX 1 EACH IV SCH ×3 (01:32→17:17)
[2017-11-09 05:49] LABS: Basophils % 0.4 % (0.0-0.8); Eosinophils # 0.1 10*3/uL (0.0-0.87); Eosinophils % 1.7 % (0.00-10.9); Hematocrit 30.6 VOL% (35.7-47.0); Hemoglobin 9.9 GM/DL (12.0-16.0); Immature Granulocytes Absolute 0.14 #; Lymphocytes # 1.4 10*3/uL (1.4-4.0); Lymphocytes % 19.7 % (21.3-54.2); Mean Corpuscular HGB Conc 32.4 GM/DL (32-36); Mean Corpuscular Hemoglobin 28 PG (27-34); Mean Corpuscular Volume 86.9 FL (87-102); Mean Platelet Volume 9.2 FL (9.6-12.0); Monocytes # 0.7 10*3/uL (0.11-0.8); Monocytes % 9.8 % (1.7-12.7); Neutrophils # 4.6 10*3/uL (1.4-7.4); Neutrophils % 66.4 % (38.7-73.9); Platelet Count 313 T/CUMM (130-400); Red Blood Count 3.52 MC/CUMM (3.8-5.5); Red Cell Distribution Width 16.7 % (9.3-17.3)
[2017-11-09 06:03] LABS: Calcium 8.9 MG/DL (8.5-10.1); Potassium 4.2 MMOL/L (3.5-5.1)
[2017-11-09 06:12] LABS: Prealbumin 27.2 MG/DL (20-40)
[2017-11-09] MEDS: CYANOCOBALAMIN 500 MCG TABLET PEG SCH ×2 (09:11→09:18)
[2017-11-09] MEDS: MEROPENEM 1,000 MG in SYRINGE 1 EACH IV SCH (09:14)
[2017-11-09] MEDS: MULTIVITAMIN LIQUID (CENTRUM) 60 ML BOTTLE PEG SCH (09:16)
[2017-11-09] MEDS: ACETAMINOPHEN 500 MG TABLET PEG SCH (09:19)
[2017-11-09] MEDS: GLYCOPYRROLATE 1 MG TABLET PEG SCH (09:19)
[2017-11-09] MEDS: LACTOBACILLUS ACIDOPHILUS/BULGARICUS CAPLET PEG SCH (09:20)
[2017-11-09] MEDS: LANSOPRAZOLE ODT 30 MG TABLET PEG SCH (09:20)
[2017-11-09] MEDS: POLYETHYLENE GLYCOL POWDER 17 GM PACK PO SCH (09:20)
[2017-11-09] MEDS: IPRATROPIUM 0.06% NASAL SPRAY 15 ML BOTTLE BOTH NARES SCH (09:20)
[2017-11-09] MEDS: LORATADINE 10 MG TABLET PEG SCH (09:20)
[2017-11-09] MEDS: NEBIVOLOL 5 MG TABLET PEG SCH (09:20)
[2017-11-09] MEDS: SUCRALFATE 1 GM TABLET PEG SCH (09:20)
[2017-11-09] MEDS: ZINC OXIDE PASTE 113 GM TUBE TOP SCH (09:20)
[2017-11-09] MEDS: NYSTATIN POWDER 15 GM BOTTLE TOP SCH (09:21)
[2017-11-09] MEDS: FLUTICASONE 50 MCG NASAL SPRAY 16 GM BOTTLE BOTH NARES SCH (09:21)
[2017-11-09 15:39] VITALS: BP 126/60
== END 2017-11-09 18:16 | disposition home health service (06) | DRG 178 ==
LOC: EDUNIT# → EDBD → N.ED 20:38 → N.EDINP 10-30 01:19 → N.2E 10-30 03:30
PROVIDERS: ADMIT Family Medicine; ATTEND Family Medicine

== ENCOUNTER 2018-09-09 08:55 | Inpatient (IN) ==
[2018-09-09] MEDS ORDERED: methylPREDNISolone SOD SUC 125 MG/2 ML VIAL IV STA (09:01)
[2018-09-09] MEDS ORDERED: SODIUM CHLORIDE 0.9% 1,000 ML IV STA (09:02)
[2018-09-09] MEDS ORDERED: CLOPIDOGREL 300 MG TABLET PEG STA (09:18)
[2018-09-09] MEDS ORDERED: ENOXAPARIN 40 MG/0.4 ML SYRINGE SUBCUT STA (09:18)
[2018-09-09 09:19] LABS: Basophils % 0.2 % (0.0-0.8); Eosinophils # 0.7 10*3/uL (0.0-0.87); Hematocrit 43.6 VOL% (35.7-47.0); Hemoglobin 13.3 GM/DL (12.0-16.0); Immature Granulocytes Absolute 0.18 #; Lymphocytes # 3.2 10*3/uL (1.4-4.0); Lymphocytes % 18.4 % (21.3-54.2); Mean Corpuscular HGB Conc 30.5 GM/DL (32-36); Mean Corpuscular Volume 96.2 FL (87-102); Monocytes % 4.3 % (1.7-12.7); Neutrophils % 72.1 % (38.7-73.9); Platelet Count 322 T/CUMM (130-400); Red Blood Count 4.53 MC/CUMM (3.8-5.5); Red Cell Distribution Width 16.4 % (9.3-17.3); White Blood Count 17.6 T/CUMM (4-12)
[2018-09-09] MEDS ORDERED: ASPIRIN CHEW 81 MG TABLET PO STA ×2 (09:19→10:19)
[2018-09-09 09:28] LABS: INR 0.9; PT Patient Result 10.3 SECS; Partial Thromboplastin Time 28.2 SECS (0-40)
[2018-09-09] MEDS ORDERED: ALBUTEROL 2.5 MG/3 ML NEB RESP TX SCH (09:30)
[2018-09-09 09:31] LABS: ABG HCO3 21.7 MMOL/L (20-26); ABG Oxygen Saturation 84.5 % (95-100); ABG PCO2 50.2 MM HG (35-48); ABG PH 7.291 (7.35-7.45); ABG PO2 50.4 MM HG (80-95); ABG TCO2 21.6 MMOL/L (23-27); Allen Test Positive
[2018-09-09 09:37] LABS: Alanine Aminotransferase 37 U/L (13-56); Albumin 2.4 G/DL (3.4-5.0); Alkaline Phosphatase 125 U/L (45-117); Aspartate Amino Transferase 33 U/L (0-37); Bilirubin,Total < 0.39 MG/DL (0.2-1.0); Blood Urea Nitrogen 24 MG/DL (7-18); Calcium 10.3 MG/DL (8.5-10.1); Glucose 227 MG/DL (74-106); Osmolality,Calculated 274.5 MOS/KG (273-304); Total Protein 7.1 G/DL (6.4-8.3)
[2018-09-09] MEDS ORDERED: CLINDAMYCIN 300 MG CAPSULE PO STA (09:40)
[2018-09-09] MEDS ORDERED: GENTAMICIN INJ 100 MG in SODIUM CHLORIDE 0.9% 100 ML IV STA (09:40)
[2018-09-09] MEDS: CARVEDILOL 3.125 MG TABLET PO SCH ×2 (16:00→22:07)
[2018-09-09] MEDS ORDERED: ONDANSETRON 4 MG/2 ML VIAL IV PRN (16:09)
[2018-09-09] MEDS ORDERED: SODIUM POLYSTYRENE SULFATE 15 GM/60 ML BOTTLE PO ONE (17:00)
[2018-09-09 17:20] LABS: Troponin I 0.773 NG/ML (0.00-0.045)
[2018-09-09] MEDS: SODIUM CHLORIDE 0.9% 1,000 ML IV SCH (18:35)
[2018-09-09] MEDS ORDERED: GLYCOPYRROLATE 1 MG TABLET PEG PRN (19:17)
[2018-09-09] MEDS ORDERED: ALBUTEROL/IPRATROPIUM 3 ML NEB RESP TX PRN (19:17)
[2018-09-09 19:47] LABS: Apearance,Urine Slightly Hazy (Clear); Bilirubin,Urine Negative (Negative); Blood, Urine Negative (Negative); Glucose,Urine (UA) Negative (Negative); Hyaline Casts,Urine 7 /LPF (0-3); Ketones,Urine 5 mg/dL (Negative); Mucus,Urine Occasional /LPF (Occasional); Nitrite,Urine Negative (Negative); Protein,Urine Negative; RBC,Urine 17 /HPF (0-4); Urine Color Yellow (Yellow); Urine Specific Gravity 1.016 (1.001-1.035); Urine Urobilinogen < 2.0 EU/DL (0.2-1.0); WBC,Urine 38 /HPF (0-6)
[2018-09-09] MEDS: cefTRIAXone 1,000 MG in SYRINGE 1 EACH IV SCH (20:07)
[2018-09-09 20:36] LABS: CKMB % 4.1 %
[2018-09-09 20:37] LABS: Troponin I 0.643 NG/ML (0.00-0.045)
[2018-09-09] MEDS: MAGNESIUM GLUCONATE 500 MG TABLET PEG SCH (22:06)
[2018-09-09] MEDS: SUCRALFATE 1 GM TABLET PEG SCH (22:06)
[2018-09-09] MEDS: LACTOBACILLUS ACIDOPHILUS/BULGARICUS CAPLET PEG SCH (22:06)
[2018-09-09] MEDS: DOCUSATE SODIUM 100 MG CAPSULE PO SCH (22:07)
[2018-09-09] MEDS: ZINC OXIDE PASTE 113 GM TUBE TOP SCH (22:07)
[2018-09-09] MEDS: DONEPEZIL 5 MG TABLET PEG SCH (22:07)
[2018-09-09] MEDS: CLINDAMYCIN INJ 300 MG in PREMIX 1 EACH IV SCH (22:40)
[2018-09-09 22:50] LABS: CKMB % 4.6 %
[2018-09-09 22:51] LABS: Troponin I 0.558 NG/ML (0.00-0.045)
[2018-09-10] MEDS: SODIUM CHLORIDE 0.9% 1,000 ML IV SCH ×3 (02:57→21:25)
[2018-09-10 04:46] LABS: Hematocrit 32.7 VOL% (35.7-47.0); Immature Granulocytes % 1.2 %; Immature Granulocytes Absolute 0.04 #; Lymphocytes # 0.6 10*3/uL (1.4-4.0); Lymphocytes % 18.3 % (21.3-54.2); Mean Corpuscular HGB Conc 30.6 GM/DL (32-36); Mean Corpuscular Volume 93.2 FL (87-102); Mean Platelet Volume 9.2 FL (9.6-12.0); Neutrophils % 74.5 % (38.7-73.9); Platelet Count 158 T/CUMM (130-400); Red Blood Count 3.51 MC/CUMM (3.8-5.5); White Blood Count 3.3 T/CUMM (4-12)
[2018-09-10 05:07] LABS: Calcium 9.2 MG/DL (8.5-10.1); Osmolality,Calculated 284.4 MOS/KG (273-304); Risk Ratio 3.68; VLDL CHOLESTEROL 19.8 MG/DL
[2018-09-10] MEDS: CLINDAMYCIN INJ 300 MG in PREMIX 1 EACH IV SCH ×3 (06:08→21:31)
[2018-09-10] MEDS ORDERED: PANTOPRAZOLE 40 MG TABLET PO SCH (09:00)
[2018-09-10] MEDS: LANSOPRAZOLE ODT 30 MG TABLET PEG SCH (09:09)
[2018-09-10] MEDS: DOCUSATE SODIUM 100 MG CAPSULE PO SCH ×2 (09:09→21:28)
[2018-09-10] MEDS: ENOXAPARIN 40 MG/0.4 ML SYRINGE SUBCUT SCH (09:09)
[2018-09-10] MEDS: LACTOBACILLUS ACIDOPHILUS/BULGARICUS CAPLET PEG SCH ×2 (09:09→21:28)
[2018-09-10] MEDS: CARVEDILOL 3.125 MG TABLET PO SCH ×2 (09:09→21:28)
[2018-09-10] MEDS: SUCRALFATE 1 GM TABLET PEG SCH ×2 (09:09→21:28)
[2018-09-10] MEDS: ASPIRIN EC 81 MG TABLET PO SCH (09:09)
[2018-09-10] MEDS: CLOPIDOGREL 75 MG TABLET PO SCH (09:10)
[2018-09-10] MEDS: ZINC OXIDE PASTE 113 GM TUBE TOP SCH ×2 (09:10→21:44)
[2018-09-10] MEDS: LORATADINE 10 MG TABLET PEG SCH (09:10)
[2018-09-10] MEDS: SIMVASTATIN 10 MG TABLET PEG SCH (09:10)
[2018-09-10] MEDS: cefTRIAXone 1,000 MG in SYRINGE 1 EACH IV SCH (21:18)
[2018-09-10] MEDS: MAGNESIUM GLUCONATE 500 MG TABLET PEG SCH (21:27)
[2018-09-10] MEDS: DONEPEZIL 5 MG TABLET PEG SCH (21:28)
[2018-09-11] MEDS: SODIUM CHLORIDE 0.9% 1,000 ML IV SCH ×3 (02:14→23:02)
[2018-09-11 05:01] LABS: Basophils % 0.2 % (0.0-0.8); Eosinophils # 0.1 10*3/uL (0.0-0.87); Eosinophils % 1.4 % (0.00-10.9); Hematocrit 31.6 VOL% (35.7-47.0); Hemoglobin 9.6 GM/DL (12.0-16.0); Immature Granulocytes % 1.4 %; Immature Granulocytes Absolute 0.06 #; Lymphocytes # 1.1 10*3/uL (1.4-4.0); Mean Corpuscular HGB Conc 30.4 GM/DL (32-36); Mean Platelet Volume 9.1 FL (9.6-12.0); Monocytes % 10.1 % (1.7-12.7); Neutrophils % 60.9 % (38.7-73.9); Platelet Count 194 T/CUMM (130-400); Red Blood Count 3.29 MC/CUMM (3.8-5.5); Red Cell Distribution Width 16.1 % (9.3-17.3); White Blood Count 4.2 T/CUMM (4-12)
[2018-09-11 05:40] LABS: Calcium 8.7 MG/DL (8.5-10.1); Osmolality,Calculated 288.8 MOS/KG (273-304)
[2018-09-11] MEDS: CLINDAMYCIN INJ 300 MG in PREMIX 1 EACH IV SCH ×3 (06:06→23:01)
[2018-09-11] MEDS: ENOXAPARIN 40 MG/0.4 ML SYRINGE SUBCUT SCH (08:58)
[2018-09-11] MEDS: LANSOPRAZOLE ODT 30 MG TABLET PEG SCH (08:59)
[2018-09-11] MEDS: SUCRALFATE 1 GM TABLET PEG SCH ×2 (08:59→20:39)
[2018-09-11] MEDS: LACTOBACILLUS ACIDOPHILUS/BULGARICUS CAPLET PEG SCH ×2 (08:59→20:39)
[2018-09-11] MEDS: ZINC OXIDE PASTE 113 GM TUBE TOP SCH ×2 (09:00→20:45)
[2018-09-11] MEDS: CARVEDILOL 3.125 MG TABLET PO SCH ×2 (09:00→20:40)
[2018-09-11] MEDS: ASPIRIN EC 81 MG TABLET PO SCH (09:00)
[2018-09-11] MEDS: CLOPIDOGREL 75 MG TABLET PO SCH (09:00)
[2018-09-11] MEDS: POTASSIUM CHLORIDE 20 MEQ TABLET PO PRN ×4 (09:00→14:44)
[2018-09-11] MEDS: LORATADINE 10 MG TABLET PEG SCH (09:00)
[2018-09-11] MEDS: DOCUSATE SODIUM 100 MG CAPSULE PO SCH ×2 (09:00→20:40)
[2018-09-11] MEDS: SIMVASTATIN 10 MG TABLET PEG SCH (09:01)
[2018-09-11] MEDS: ACETAMINOPHEN 325 MG TABLET PO PRN (14:44)
[2018-09-11] MEDS: MAGNESIUM GLUCONATE 500 MG TABLET PEG SCH (20:40)
[2018-09-11] MEDS: cefTRIAXone 1,000 MG in SYRINGE 1 EACH IV SCH (20:40)
[2018-09-11] MEDS: DONEPEZIL 5 MG TABLET PEG SCH (20:40)
[2018-09-12] MEDS: CLINDAMYCIN INJ 300 MG in PREMIX 1 EACH IV SCH ×3 (06:01→22:33)
[2018-09-12 06:15] LABS: Basophils % 0.3 % (0.0-0.8); Eosinophils # 0.3 10*3/uL (0.0-0.87); Eosinophils % 3.3 % (0.00-10.9); Hematocrit 36.1 VOL% (35.7-47.0); Hemoglobin 11.1 GM/DL (12.0-16.0); Immature Granulocytes % 0.7 %; Immature Granulocytes Absolute 0.05 #; Lymphocytes # 1.6 10*3/uL (1.4-4.0); Lymphocytes % 21.3 % (21.3-54.2); Mean Corpuscular HGB Conc 30.7 GM/DL (32-36); Mean Corpuscular Volume 94.3 FL (87-102); Monocytes % 7.6 % (1.7-12.7); Neutrophils % 66.8 % (38.7-73.9); Platelet Count 255 T/CUMM (130-400); Red Blood Count 3.83 MC/CUMM (3.8-5.5); Red Cell Distribution Width 16.6 % (9.3-17.3); White Blood Count 7.5 T/CUMM (4-12)
[2018-09-12 06:36] LABS: Calcium 9.2 MG/DL (8.5-10.1); Osmolality,Calculated 288.7 MOS/KG (273-304)
[2018-09-12] MEDS: ENOXAPARIN 40 MG/0.4 ML SYRINGE SUBCUT SCH (09:09)
[2018-09-12] MEDS: CARVEDILOL 3.125 MG TABLET PO SCH ×2 (09:11→22:09)
[2018-09-12] MEDS: LORATADINE 10 MG TABLET PEG SCH (09:11)
[2018-09-12] MEDS: LACTOBACILLUS ACIDOPHILUS/BULGARICUS CAPLET PEG SCH ×2 (09:11→22:06)
[2018-09-12] MEDS: SODIUM CHLORIDE 0.9% 1,000 ML IV SCH ×3 (09:11→13:30)
[2018-09-12] MEDS: SUCRALFATE 1 GM TABLET PEG SCH ×2 (09:11→22:06)
[2018-09-12] MEDS: CLOPIDOGREL 75 MG TABLET PO SCH (09:11)
[2018-09-12] MEDS: DOCUSATE SODIUM 100 MG CAPSULE PO SCH ×2 (09:11→22:09)
[2018-09-12] MEDS: ZINC OXIDE PASTE 113 GM TUBE TOP SCH ×2 (09:12→22:10)
[2018-09-12] MEDS: POTASSIUM CHLORIDE 20 MEQ TABLET PO PRN (09:12)
[2018-09-12] MEDS: ASPIRIN EC 81 MG TABLET PO SCH (09:12)
[2018-09-12] MEDS: SIMVASTATIN 10 MG TABLET PEG SCH (09:12)
[2018-09-12] MEDS: LANSOPRAZOLE ODT 30 MG TABLET PEG SCH (09:12)
[2018-09-12] MEDS ORDERED: MORPHINE 4 MG/1 ML VIAL IV PRN (20:57)
[2018-09-12] MEDS: cefTRIAXone 1,000 MG in SYRINGE 1 EACH IV SCH (20:59)
[2018-09-12] MEDS: DONEPEZIL 5 MG TABLET PEG SCH (22:06)
[2018-09-12] MEDS: MAGNESIUM GLUCONATE 500 MG TABLET PEG SCH (22:10)
[2018-09-13] MEDS: CLINDAMYCIN INJ 300 MG in PREMIX 1 EACH IV SCH ×3 (05:30→21:37)
[2018-09-13 05:42] LABS: Osmolality,Calculated 280.1 MOS/KG (273-304); Prealbumin 14.9 MG/DL (20-40)
[2018-09-13 05:51] LABS: Calcium 5.4 MG/DL (8.5-10.1)
[2018-09-13 06:43] LABS: Basophils % 0.4 % (0.0-0.8); Eosinophils # 0.3 10*3/uL (0.0-0.87); Eosinophils % 3.7 % (0.00-10.9); Hematocrit 39.9 VOL% (35.7-47.0); Hemoglobin 12.2 GM/DL (12.0-16.0); Immature Granulocytes % 0.9 %; Immature Granulocytes Absolute 0.07 #; Lymphocytes # 1.9 10*3/uL (1.4-4.0); Lymphocytes % 24.8 % (21.3-54.2); Mean Corpuscular HGB Conc 30.6 GM/DL (32-36); Mean Corpuscular Volume 94.8 FL (87-102); Mean Platelet Volume 8.8 FL (9.6-12.0); Monocytes % 7.2 % (1.7-12.7); Platelet Count 278 T/CUMM (130-400); Red Blood Count 4.21 MC/CUMM (3.8-5.5); Red Cell Distribution Width 16.7 % (9.3-17.3); White Blood Count 7.8 T/CUMM (4-12)
[2018-09-13 07:04] LABS: Calcium 9.4 MG/DL (8.5-10.1); Osmolality,Calculated 280.1 MOS/KG (273-304)
[2018-09-13] MEDS: ENOXAPARIN 40 MG/0.4 ML SYRINGE SUBCUT SCH (08:45)
[2018-09-13] MEDS: SUCRALFATE 1 GM TABLET PEG SCH ×2 (15:01→21:00)
[2018-09-13] MEDS: ACETAMINOPHEN 325 MG TABLET PO PRN (15:01)
[2018-09-13] MEDS: LORATADINE 10 MG TABLET PEG SCH (15:02)
[2018-09-13] MEDS: LACTOBACILLUS ACIDOPHILUS/BULGARICUS CAPLET PEG SCH ×2 (15:02→21:00)
[2018-09-13] MEDS: ASPIRIN EC 81 MG TABLET PO SCH (15:03)
[2018-09-13] MEDS: SIMVASTATIN 10 MG TABLET PEG SCH (15:03)
[2018-09-13] MEDS: CARVEDILOL 3.125 MG TABLET PO SCH ×2 (15:03→21:00)
[2018-09-13] MEDS: LANSOPRAZOLE ODT 30 MG TABLET PEG SCH (15:04)
[2018-09-13] MEDS: ZINC OXIDE PASTE 113 GM TUBE TOP SCH ×2 (15:04→21:01)
[2018-09-13] MEDS: DOCUSATE SODIUM 100 MG CAPSULE PO SCH ×2 (15:04→21:00)
[2018-09-13] MEDS: CLOPIDOGREL 75 MG TABLET PO SCH (15:04)
[2018-09-13] MEDS: cefTRIAXone 1,000 MG in SYRINGE 1 EACH IV SCH (20:59)
[2018-09-13] MEDS: MAGNESIUM GLUCONATE 500 MG TABLET PEG SCH (21:00)
[2018-09-13] MEDS: DONEPEZIL 5 MG TABLET PEG SCH (21:00)
[2018-09-14] MEDS: CLINDAMYCIN INJ 300 MG in PREMIX 1 EACH IV SCH ×3 (05:58→23:15)
[2018-09-14 06:52] LABS: Basophils % 0.2 % (0.0-0.8); Eosinophils # 0.2 10*3/uL (0.0-0.87); Eosinophils % 2.5 % (0.00-10.9); Hematocrit 34.9 VOL% (35.7-47.0); Hemoglobin 11.1 GM/DL (12.0-16.0); Immature Granulocytes % 0.4 %; Immature Granulocytes Absolute 0.04 #; Lymphocytes # 1.6 10*3/uL (1.4-4.0); Lymphocytes % 17.8 % (21.3-54.2); Mean Corpuscular HGB Conc 31.8 GM/DL (32-36); Mean Corpuscular Volume 93.1 FL (87-102); Mean Platelet Volume 8.5 FL (9.6-12.0); Monocytes % 4.9 % (1.7-12.7); Neutrophils % 74.2 % (38.7-73.9); Platelet Count 252 T/CUMM (130-400); Red Blood Count 3.75 MC/CUMM (3.8-5.5); Red Cell Distribution Width 16.8 % (9.3-17.3)
[2018-09-14] MEDS ORDERED: CARVEDILOL 6.25 MG TABLET PO SCH (07:28)
[2018-09-14 07:58] LABS: Osmolality,Calculated 281.1 MOS/KG (273-304)
[2018-09-14] MEDS ORDERED: FLUTICASONE 50 MCG NASAL SPRAY 16 GM BOTTLE BOTH NARES SCH (09:00)
[2018-09-14] MEDS ORDERED: IPRATROPIUM 0.06% NASAL SPRAY 15 ML BOTTLE BOTH NARES SCH (09:00)
[2018-09-14] MEDS: SUCRALFATE 1 GM TABLET PEG SCH ×2 (11:05→21:30)
[2018-09-14] MEDS: CARVEDILOL 6.25 MG TABLET PO SCH ×2 (11:05→23:17)
[2018-09-14] MEDS: LACTOBACILLUS ACIDOPHILUS/BULGARICUS CAPLET PEG SCH ×2 (11:05→21:30)
[2018-09-14] MEDS: CLOPIDOGREL 75 MG TABLET PO SCH (11:05)
[2018-09-14] MEDS: LORATADINE 10 MG TABLET PEG SCH (11:06)
[2018-09-14] MEDS: SIMVASTATIN 10 MG TABLET PEG SCH (11:06)
[2018-09-14] MEDS: IPRATROPIUM 0.06% NASAL SPRAY 15 ML BOTTLE BOTH NARES SCH (11:06)
[2018-09-14] MEDS: ASPIRIN EC 81 MG TABLET PO SCH (11:06)
[2018-09-14] MEDS: FLUTICASONE 50 MCG NASAL SPRAY 16 GM BOTTLE BOTH NARES SCH (11:06)
[2018-09-14] MEDS: ZINC OXIDE PASTE 113 GM TUBE TOP SCH ×2 (11:06→23:17)
[2018-09-14] MEDS: ENOXAPARIN 40 MG/0.4 ML SYRINGE SUBCUT SCH (11:06)
[2018-09-14] MEDS: LANSOPRAZOLE ODT 30 MG TABLET PEG SCH (11:07)
[2018-09-14] MEDS: DOCUSATE SODIUM 100 MG CAPSULE PO SCH ×2 (11:07→21:30)
[2018-09-14] MEDS: MAGNESIUM GLUCONATE 500 MG TABLET PEG SCH (21:29)
[2018-09-14] MEDS: cefTRIAXone 1,000 MG in SYRINGE 1 EACH IV SCH (21:30)
[2018-09-14] MEDS: DONEPEZIL 5 MG TABLET PEG SCH (21:30)
[2018-09-15 04:38] LABS: Basophils % 0.2 % (0.0-0.8); Eosinophils # 0.2 10*3/uL (0.0-0.87); Eosinophils % 3.3 % (0.00-10.9); Hematocrit 34.7 VOL% (35.7-47.0); Hemoglobin 10.5 GM/DL (12.0-16.0); Immature Granulocytes % 0.3 %; Immature Granulocytes Absolute 0.02 #; Lymphocytes # 1.4 10*3/uL (1.4-4.0); Lymphocytes % 22.8 % (21.3-54.2); Mean Corpuscular HGB Conc 30.3 GM/DL (32-36); Mean Corpuscular Volume 94.8 FL (87-102); Mean Platelet Volume 8.7 FL (9.6-12.0); Neutrophils % 66.4 % (38.7-73.9); Platelet Count 256 T/CUMM (130-400); Red Blood Count 3.66 MC/CUMM (3.8-5.5); Red Cell Distribution Width 17.2 % (9.3-17.3); White Blood Count 6.1 T/CUMM (4-12)
[2018-09-15 05:00] LABS: Calcium 8.9 MG/DL (8.5-10.1); Osmolality,Calculated 286.8 MOS/KG (273-304)
[2018-09-15] MEDS: CLINDAMYCIN INJ 300 MG in PREMIX 1 EACH IV SCH ×3 (06:13→22:15)
[2018-09-15] MEDS: ZINC OXIDE PASTE 113 GM TUBE TOP SCH ×2 (09:45→21:57)
[2018-09-15] MEDS: FLUTICASONE 50 MCG NASAL SPRAY 16 GM BOTTLE BOTH NARES SCH (09:45)
[2018-09-15] MEDS: ENOXAPARIN 40 MG/0.4 ML SYRINGE SUBCUT SCH (09:59)
[2018-09-15] MEDS: CLOPIDOGREL 75 MG TABLET PO SCH (10:02)
[2018-09-15] MEDS: LANSOPRAZOLE ODT 30 MG TABLET PEG SCH (10:03)
[2018-09-15] MEDS: CARVEDILOL 6.25 MG TABLET PO SCH ×2 (10:03→21:57)
[2018-09-15] MEDS: ASPIRIN EC 81 MG TABLET PO SCH (10:03)
[2018-09-15] MEDS: LACTOBACILLUS ACIDOPHILUS/BULGARICUS CAPLET PEG SCH ×2 (10:03→21:56)
[2018-09-15] MEDS: SIMVASTATIN 10 MG TABLET PEG SCH (10:03)
[2018-09-15] MEDS: SUCRALFATE 1 GM TABLET PEG SCH ×2 (10:03→21:57)
[2018-09-15] MEDS: DOCUSATE SODIUM 100 MG CAPSULE PO SCH ×3 (10:03→21:57)
[2018-09-15] MEDS: IPRATROPIUM 0.06% NASAL SPRAY 15 ML BOTTLE BOTH NARES SCH (10:03)
[2018-09-15] MEDS: LORATADINE 10 MG TABLET PEG SCH (10:03)
[2018-09-15] MEDS ORDERED: ALBUTEROL/IPRATROPIUM 3 ML NEB RESP TX PRN (13:55)
[2018-09-15] MEDS: ALBUTEROL/IPRATROPIUM 3 ML NEB RESP TX SCH ×2 (14:35→19:00)
[2018-09-15] MEDS ORDERED: ALBUTEROL/IPRATROPIUM 3 ML NEB RESP TX SCH (15:00)
[2018-09-15] MEDS: cefTRIAXone 1,000 MG in SYRINGE 1 EACH IV SCH (21:56)
[2018-09-15] MEDS: DONEPEZIL 5 MG TABLET PEG SCH (21:56)
[2018-09-15] MEDS: MAGNESIUM GLUCONATE 500 MG TABLET PEG SCH (21:57)
[2018-09-16 05:12] LABS: Basophils % 0.4 % (0.0-0.8); Eosinophils # 0.2 10*3/uL (0.0-0.87); Eosinophils % 3.7 % (0.00-10.9); Hematocrit 35.8 VOL% (35.7-47.0); Hemoglobin 10.7 GM/DL (12.0-16.0); Immature Granulocytes % 0.6 %; Immature Granulocytes Absolute 0.03 #; Lymphocytes # 1.6 10*3/uL (1.4-4.0); Mean Corpuscular HGB Conc 29.9 GM/DL (32-36); Mean Corpuscular Volume 97.3 FL (87-102); Mean Platelet Volume 9.3 FL (9.6-12.0); Monocytes % 9.4 % (1.7-12.7); Neutrophils % 56.9 % (38.7-73.9); Platelet Count 215 T/CUMM (130-400); Red Blood Count 3.68 MC/CUMM (3.8-5.5); Red Cell Distribution Width 17.2 % (9.3-17.3); White Blood Count 5.4 T/CUMM (4-12)
[2018-09-16 05:16] LABS: Calcium 9.5 MG/DL (8.5-10.1); Osmolality,Calculated 283.1 MOS/KG (273-304)
[2018-09-16 05:35] LABS: Prealbumin 15.4 MG/DL (20-40)
[2018-09-16 05:44] LABS: Hypochromasia Slight; Platelet Estimate Adequate
[2018-09-16] MEDS: CLINDAMYCIN INJ 300 MG in PREMIX 1 EACH IV SCH ×2 (06:08→15:25)
[2018-09-16] MEDS: ALBUTEROL/IPRATROPIUM 3 ML NEB RESP TX SCH (07:15)
[2018-09-16] MEDS: ENOXAPARIN 40 MG/0.4 ML SYRINGE SUBCUT SCH (15:12)
[2018-09-16] MEDS: SUCRALFATE 1 GM TABLET PEG SCH (15:13)
[2018-09-16] MEDS: LORATADINE 10 MG TABLET PEG SCH (15:13)
[2018-09-16] MEDS: ASPIRIN EC 81 MG TABLET PO SCH (15:13)
[2018-09-16] MEDS: IPRATROPIUM 0.06% NASAL SPRAY 15 ML BOTTLE BOTH NARES SCH (15:14)
[2018-09-16] MEDS: CLOPIDOGREL 75 MG TABLET PO SCH (15:14)
[2018-09-16] MEDS: CARVEDILOL 6.25 MG TABLET PO SCH (15:14)
[2018-09-16] MEDS: LACTOBACILLUS ACIDOPHILUS/BULGARICUS CAPLET PEG SCH (15:14)
[2018-09-16] MEDS: SIMVASTATIN 10 MG TABLET PEG SCH (15:17)
[2018-09-16] MEDS: ZINC OXIDE PASTE 113 GM TUBE TOP SCH (15:18)
[2018-09-16] MEDS: FLUTICASONE 50 MCG NASAL SPRAY 16 GM BOTTLE BOTH NARES SCH (15:18)
[2018-09-16] MEDS: LANSOPRAZOLE ODT 30 MG TABLET PEG SCH (15:20)
[2018-09-16] MEDS: DOCUSATE SODIUM 100 MG CAPSULE PO SCH (15:20)
[2018-09-16 15:32] VITALS: BP 129/59
== END 2018-09-16 17:30 | disposition home health service (06) | DRG 193 ==
LOC: EDUNIT# → EDBD → N.ED 08:55 → N.EDINP 10:57 → N.TELEN 16:07
PROVIDERS: ADMIT Family Medicine; ATTEND Family Medicine

== ENCOUNTER 2018-10-08 15:22 | Inpatient (IN) ==
[2018-10-08 16:07] LABS: Basophils % 0.2 % (0.0-0.8); Hematocrit 32.2 VOL% (35.7-47.0); Hemoglobin 10.2 GM/DL (12.0-16.0); Immature Granulocytes Absolute 0.18 #; Lymphocytes # 0.5 10*3/uL (1.4-4.0); Lymphocytes % 2.8 % (21.3-54.2); Mean Corpuscular HGB Conc 31.7 GM/DL (32-36); Mean Corpuscular Volume 93.9 FL (87-102); Mean Platelet Volume 9.4 FL (9.6-12.0); Monocytes % 3.1 % (1.7-12.7); Neutrophils % 92.9 % (38.7-73.9); Platelet Count 159 T/CUMM (130-400); Red Blood Count 3.43 MC/CUMM (3.8-5.5); White Blood Count 18.7 T/CUMM (4-12)
[2018-10-08] MEDS ORDERED: SODIUM CHLORIDE 0.9% 1,000 ML IV STA (16:14)
[2018-10-08 16:19] LABS: Apearance,Urine CLOUDY (Clear); Bacteria,Urine Occasional /HPF (Few); Bilirubin,Urine Negative (Negative); Blood, Urine Moderate mg/dL (Negative); Glucose,Urine (UA) Negative (Negative); Hyaline Casts,Urine 8 /LPF (0-3); Ketones,Urine Negative (Negative); Mucus,Urine Occasional /LPF (Occasional); Nitrite,Urine Negative (Negative); Protein,Urine 100 MG/DL; RBC,Urine 88 /HPF (0-4); Squamous Epithelial Cell,Urine Occasional /HPF (0-10); Urine Color Amber (Yellow); Urine Specific Gravity 1.023 (1.001-1.035); Urine Urobilinogen < 2.0 EU/DL (0.2-1.0); WBC,Urine 201 /HPF (0-6)
[2018-10-08 16:21] LABS: Albumin 2.1 G/DL (3.4-5.0); Bilirubin,Total 0.4 MG/DL (0.2-1.0); Calcium 8.9 MG/DL (8.5-10.1); Osmolality,Calculated 259.5 MOS/KG (273-304); Total Protein 6.8 G/DL (6.4-8.3)
[2018-10-08 16:27] LABS: Anisocytosis 1+; Band Neutrophils 22 % (0-10); Lymphocytes 3 % (20-55); Macrocytosis 1+; Metamyelocytes 1 %; Segmented Neutrophils 71 % (50-85); Total Cells Counted 100
[2018-10-08 16:28] LABS: Atypical Lymphocytes 1+; Microcytosis 1+; Platelet Estimate Normal; Polychromasia 1+
[2018-10-08] MEDS ORDERED: PIPERACILLIN/TAZOBACTAM 3,375 MG in SODIUM CHLORIDE 0.9% 100 ML IV STA (17:16)
[2018-10-08] MEDS ORDERED: ONDANSETRON 4 MG/2 ML VIAL IV PRN (17:16)
[2018-10-08] MEDS: SODIUM CHLORIDE 0.9% 1,000 ML IV SCH (17:35)
[2018-10-08] MEDS ORDERED: GLYCOPYRROLATE 1 MG TABLET PEG PRN (20:59)
[2018-10-08] MEDS ORDERED: NYSTATIN POWDER 15 GM BOTTLE TOP PRN (20:59)
[2018-10-08] MEDS ORDERED: NON-FORMULARY MEDICATION (Cranberry Extract 500 MG) PO SCH (21:00)
[2018-10-08] MEDS: DONEPEZIL 5 MG TABLET PEG SCH (23:03)
[2018-10-08] MEDS: DOCUSATE SODIUM 100 MG CAPSULE PO SCH (23:04)
[2018-10-08] MEDS: SUCRALFATE 1 GM TABLET PEG SCH (23:04)
[2018-10-08] MEDS: ZINC OXIDE PASTE 113 GM TUBE TOP SCH (23:30)
[2018-10-09] MEDS: ALBUTEROL/IPRATROPIUM 3 ML NEB RESP TX SCH ×4 (01:13→19:08)
[2018-10-09] MEDS: SODIUM CHLORIDE 0.9% 1,000 ML IV SCH ×3 (02:37→23:52)
[2018-10-09] MEDS: PIPERACILLIN/TAZOBACTAM 3,375 MG in SODIUM CHLORIDE 0.9% 100 ML IV SCH ×3 (02:50→17:29)
[2018-10-09 05:55] LABS: Basophils % 0.2 % (0.0-0.8); Eosinophils % 0.3 % (0.00-10.9); Hematocrit 29.2 VOL% (35.7-47.0); Hemoglobin 9.3 GM/DL (12.0-16.0); Immature Granulocytes % 0.6 %; Immature Granulocytes Absolute 0.07 #; Lymphocytes # 0.9 10*3/uL (1.4-4.0); Lymphocytes % 7.9 % (21.3-54.2); Mean Corpuscular HGB Conc 31.8 GM/DL (32-36); Mean Corpuscular Volume 93.9 FL (87-102); Mean Platelet Volume 9.6 FL (9.6-12.0); Monocytes % 5.2 % (1.7-12.7); Neutrophils % 85.8 % (38.7-73.9); Platelet Count 121 T/CUMM (130-400); Red Blood Count 3.11 MC/CUMM (3.8-5.5); Red Cell Distribution Width 14.9 % (9.3-17.3); White Blood Count 10.9 T/CUMM (4-12)
[2018-10-09 06:23] LABS: Bilirubin,Total 0.8 MG/DL (0.2-1.0); Osmolality,Calculated 269.4 MOS/KG (273-304); Total Protein 6.1 G/DL (6.4-8.3)
[2018-10-09] MEDS ORDERED: FUROSEMIDE 20 MG/2 ML VIAL IV ONE (07:41)
[2018-10-09 07:45] LABS: Vitamin B12 1173 PG/ML (211-911)
[2018-10-09] MEDS: SUCRALFATE 1 GM TABLET PEG SCH ×2 (10:19→21:21)
[2018-10-09] MEDS: ASPIRIN EC 81 MG TABLET PO SCH (10:19)
[2018-10-09] MEDS: SIMVASTATIN 10 MG TABLET PEG SCH (10:19)
[2018-10-09] MEDS: LORATADINE 10 MG TABLET PEG SCH (10:19)
[2018-10-09] MEDS: PANTOPRAZOLE 40 MG TABLET PO SCH (10:19)
[2018-10-09] MEDS: DOCUSATE SODIUM 100 MG CAPSULE PO SCH ×2 (10:20→21:17)
[2018-10-09] MEDS: CLOPIDOGREL 75 MG TABLET PEG SCH (10:20)
[2018-10-09] MEDS: ALBUMIN 25% 25 GM in PREMIX 1 EACH IV SCH ×2 (10:28→15:55)
[2018-10-09] MEDS: ZINC OXIDE PASTE 113 GM TUBE TOP SCH ×2 (10:29→23:52)
[2018-10-09] MEDS ORDERED: CARVEDILOL 6.25 MG TABLET PO ONE (16:36)
[2018-10-09] MEDS: CARVEDILOL 3.125 MG TABLET PO SCH (21:16)
[2018-10-09] MEDS: DONEPEZIL 5 MG TABLET PEG SCH (21:17)
[2018-10-09] MEDS ORDERED: ALBUTEROL/IPRATROPIUM 3 ML NEB RESP TX PRN (22:55)
[2018-10-10] MEDS: ALBUTEROL/IPRATROPIUM 3 ML NEB RESP TX SCH ×7 (00:10→23:49)
[2018-10-10] MEDS: ALBUMIN 25% 25 GM in PREMIX 1 EACH IV SCH ×3 (01:00→16:38)
[2018-10-10] MEDS: PIPERACILLIN/TAZOBACTAM 3,375 MG in SODIUM CHLORIDE 0.9% 100 ML IV SCH ×3 (01:23→18:01)
[2018-10-10] MEDS: DOCUSATE SODIUM 100 MG CAPSULE PO SCH ×2 (09:42→20:21)
[2018-10-10] MEDS: ASPIRIN EC 81 MG TABLET PO SCH (09:55)
[2018-10-10] MEDS: CARVEDILOL 3.125 MG TABLET PO SCH ×2 (09:55→20:22)
[2018-10-10] MEDS: CLOPIDOGREL 75 MG TABLET PEG SCH (09:55)
[2018-10-10] MEDS: SUCRALFATE 1 GM TABLET PEG SCH ×2 (09:55→20:22)
[2018-10-10] MEDS: SIMVASTATIN 10 MG TABLET PEG SCH (09:55)
[2018-10-10] MEDS: LORATADINE 10 MG TABLET PEG SCH (09:55)
[2018-10-10] MEDS: ZINC OXIDE PASTE 113 GM TUBE TOP SCH ×2 (09:56→20:22)
[2018-10-10] MEDS: PANTOPRAZOLE 40 MG TABLET PO SCH (09:56)
[2018-10-10] MEDS: SODIUM CHLORIDE 0.9% 1,000 ML IV SCH ×2 (12:21→23:52)
[2018-10-10 16:42] LABS: Osmolality,Calculated 280.7 MOS/KG (273-304)
[2018-10-10] MEDS: DONEPEZIL 5 MG TABLET PEG SCH (20:22)
[2018-10-10] MEDS: traMADol 50 MG TABLET PEG SCH (20:22)
[2018-10-10] MEDS: NYSTATIN CREAM 15 GM TUBE TOP SCH (20:23)
[2018-10-11] MEDS: ALBUMIN 25% 25 GM in PREMIX 1 EACH IV SCH ×2 (00:42→09:22)
[2018-10-11] MEDS: SODIUM CHLORIDE 0.9% 1,000 ML IV SCH (00:43)
[2018-10-11] MEDS: PIPERACILLIN/TAZOBACTAM 3,375 MG in SODIUM CHLORIDE 0.9% 100 ML IV SCH ×3 (03:21→21:08)
[2018-10-11] MEDS: ALBUTEROL/IPRATROPIUM 3 ML NEB RESP TX SCH ×6 (03:40→23:53)
[2018-10-11 05:28] LABS: Hematocrit 29.9 VOL% (35.7-47.0); Hemoglobin 9.3 GM/DL (12.0-16.0); Immature Granulocytes % 0.6 %; Immature Granulocytes Absolute 0.05 #; Lymphocytes # 1.6 10*3/uL (1.4-4.0); Lymphocytes % 18.5 % (21.3-54.2); Mean Corpuscular HGB Conc 31.1 GM/DL (32-36); Mean Corpuscular Volume 96.5 FL (87-102); Mean Platelet Volume 9.8 FL (9.6-12.0); Monocytes % 9.2 % (1.7-12.7); Neutrophils % 71.7 % (38.7-73.9); Platelet Count 154 T/CUMM (130-400); White Blood Count 8.4 T/CUMM (4-12)
[2018-10-11 05:51] LABS: Calcium 9.3 MG/DL (8.5-10.1); Osmolality,Calculated 288.1 MOS/KG (273-304); Prealbumin 14.8 MG/DL (20-40)
[2018-10-11 06:00] LABS: Alanine Aminotransferase 47 U/L (13-56); Albumin 3.4 G/DL (3.4-5.0); Alkaline Phosphatase 72 U/L (45-117); Aspartate Amino Transferase 43 U/L (0-37); Bilirubin,Direct < 0.100 MG/DL (0.0-0.20); Bilirubin,Indirect 0.6 MG/DL (0.0-1.0); Total Protein 6.5 G/DL (6.4-8.3)
[2018-10-11] MEDS: ASPIRIN EC 81 MG TABLET PO SCH (09:23)
[2018-10-11] MEDS: CLOPIDOGREL 75 MG TABLET PEG SCH (09:23)
[2018-10-11] MEDS: SUCRALFATE 1 GM TABLET PEG SCH (09:23)
[2018-10-11] MEDS: DOCUSATE SODIUM 100 MG CAPSULE PO SCH (09:23)
[2018-10-11] MEDS: CARVEDILOL 3.125 MG TABLET PO SCH (09:23)
[2018-10-11] MEDS: LORATADINE 10 MG TABLET PEG SCH (09:23)
[2018-10-11] MEDS ORDERED: DEXTROSE 50% 25 GM/50 ML VIAL IV PRN (11:33)
[2018-10-11] MEDS ORDERED: GLUCAGON 1 MG VIAL IM PRN (11:33)
[2018-10-11] MEDS: NYSTATIN CREAM 15 GM TUBE TOP SCH ×2 (12:19→20:48)
[2018-10-11] MEDS: ZINC OXIDE PASTE 113 GM TUBE TOP SCH ×2 (12:19→21:32)
[2018-10-11] MEDS ORDERED: POTASSIUM PHOSPHATE 30 MMOL in SODIUM CHLORIDE 0.9% 250 ML IV ONE (12:45)
[2018-10-11] MEDS: INSULIN REGULAR 100 UNIT/ML SUBCUT SCH ×2 (13:01→17:48)
[2018-10-11] MEDS: SUCRALFATE 1 GM/10 ML UDCUP PO SCH (16:39)
[2018-10-11] MEDS: ACETAMINOPHEN 325 MG TABLET PO PRN (20:48)
[2018-10-11] MEDS: DONEPEZIL 5 MG TABLET PEG SCH (20:48)
[2018-10-11] MEDS: CARVEDILOL 6.25 MG TABLET PO SCH (20:48)
[2018-10-11] MEDS: DOCUSATE SODIUM 100 MG/10 ML UDCUP PEG SCH (20:48)
[2018-10-11] MEDS ORDERED: CARVEDILOL 6.25 MG TABLET PO SCH (21:00)
[2018-10-11] MEDS: SIMVASTATIN 10 MG TABLET PEG SCH (21:31)
[2018-10-11] MEDS: METOPROLOL TARTRATE 50 MG TABLET PO SCH (21:32)
[2018-10-12] MEDS: INSULIN REGULAR 100 UNIT/ML SUBCUT SCH ×4 (00:17→18:25)
[2018-10-12] MEDS: ALBUTEROL/IPRATROPIUM 3 ML NEB RESP TX SCH ×6 (04:35→23:20)
[2018-10-12] MEDS: PIPERACILLIN/TAZOBACTAM 3,375 MG in SODIUM CHLORIDE 0.9% 100 ML IV SCH ×3 (05:19→21:16)
[2018-10-12 05:45] LABS: Calcium 9.6 MG/DL (8.5-10.1); Osmolality,Calculated 286.1 MOS/KG (273-304)
[2018-10-12 05:46] LABS: Calcium 9.4 MG/DL (8.5-10.1); Osmolality,Calculated 290.8 MOS/KG (273-304)
[2018-10-12] MEDS: METOPROLOL TARTRATE 50 MG TABLET PO SCH ×2 (08:49→21:15)
[2018-10-12] MEDS: CLOPIDOGREL 75 MG TABLET PEG SCH (08:49)
[2018-10-12] MEDS: ASPIRIN EC 81 MG TABLET PO SCH (08:49)
[2018-10-12] MEDS: SUCRALFATE 1 GM/10 ML UDCUP PO SCH ×2 (08:49→16:38)
[2018-10-12] MEDS: DOCUSATE SODIUM 100 MG/10 ML UDCUP PEG SCH ×2 (08:49→21:14)
[2018-10-12] MEDS: POLYETHYLENE GLYCOL POWDER 17 GM PACK PEG PRN (08:49)
[2018-10-12] MEDS: ZINC OXIDE PASTE 113 GM TUBE TOP SCH ×2 (08:50→21:15)
[2018-10-12] MEDS: LORATADINE 10 MG TABLET PEG SCH (08:50)
[2018-10-12] MEDS: CARVEDILOL 6.25 MG TABLET PO SCH ×2 (08:50→16:38)
[2018-10-12] MEDS: NYSTATIN CREAM 15 GM TUBE TOP SCH ×2 (08:50→21:16)
[2018-10-12] MEDS ORDERED: FUROSEMIDE 20 MG/2 ML VIAL IV ONE (14:30)
[2018-10-12] MEDS: traMADol 50 MG TABLET PEG SCH (21:14)
[2018-10-12] MEDS: ACETAMINOPHEN 325 MG TABLET PO PRN (21:14)
[2018-10-12] MEDS: DONEPEZIL 5 MG TABLET PEG SCH (21:15)
[2018-10-12] MEDS: SIMVASTATIN 10 MG TABLET PEG SCH (21:15)
[2018-10-13] MEDS: INSULIN REGULAR 100 UNIT/ML SUBCUT SCH ×4 (00:50→19:17)
[2018-10-13] MEDS: IBUPROFEN 100 MG/5 ML UDCUP PO PRN (01:37)
[2018-10-13] MEDS: ALBUTEROL/IPRATROPIUM 3 ML NEB RESP TX SCH ×6 (03:20→23:55)
[2018-10-13] MEDS: PIPERACILLIN/TAZOBACTAM 3,375 MG in SODIUM CHLORIDE 0.9% 100 ML IV SCH ×3 (05:30→21:45)
[2018-10-13] MEDS: POLYETHYLENE GLYCOL POWDER 17 GM PACK PEG PRN (09:19)
[2018-10-13] MEDS: LORATADINE 10 MG TABLET PEG SCH (09:19)
[2018-10-13] MEDS: CARVEDILOL 6.25 MG TABLET PO SCH ×2 (09:20→19:06)
[2018-10-13] MEDS: METOPROLOL TARTRATE 50 MG TABLET PO SCH ×2 (09:20→20:36)
[2018-10-13] MEDS: CLOPIDOGREL 75 MG TABLET PEG SCH (09:20)
[2018-10-13] MEDS: ASPIRIN EC 81 MG TABLET PO SCH (09:20)
[2018-10-13] MEDS: SUCRALFATE 1 GM/10 ML UDCUP PO SCH ×2 (09:20→19:06)
[2018-10-13] MEDS: DOCUSATE SODIUM 100 MG/10 ML UDCUP PEG SCH ×2 (09:20→20:36)
[2018-10-13] MEDS: NYSTATIN CREAM 15 GM TUBE TOP SCH ×2 (09:30→20:36)
[2018-10-13] MEDS: ZINC OXIDE PASTE 113 GM TUBE TOP SCH ×2 (09:30→20:36)
[2018-10-13 11:11] LABS: Basophils % 0.2 % (0.0-0.8); Eosinophils % 0.3 % (0.00-10.9); Hematocrit 30.2 VOL% (35.7-47.0); Immature Granulocytes % 0.5 %; Immature Granulocytes Absolute 0.05 #; Lymphocytes # 1.9 10*3/uL (1.4-4.0); Mean Corpuscular HGB Conc 29.8 GM/DL (32-36); Mean Platelet Volume 9.3 FL (9.6-12.0); Platelet Count 183 T/CUMM (130-400); Red Blood Count 3.05 MC/CUMM (3.8-5.5); Red Cell Distribution Width 14.8 % (9.3-17.3); White Blood Count 9.4 T/CUMM (4-12)
[2018-10-13 11:31] LABS: Albumin 2.9 G/DL (3.4-5.0); Bilirubin,Total 0.8 MG/DL (0.2-1.0); Calcium 9.7 MG/DL (8.5-10.1); Osmolality,Calculated 295.8 MOS/KG (273-304); Total Protein 6.3 G/DL (6.4-8.3)
[2018-10-13 16:30] LABS: ABG Base Excess 0.9 MMOL/L (-2.5-2.5); ABG HCO3 31.2 MMOL/L (20-26); ABG Oxygen Saturation 68.8 % (95-100); ABG TCO2 33.9 MMOL/L (23-27)
[2018-10-13 16:33] LABS: ABG PCO2 87.5 MM HG (35-48)
[2018-10-13] MEDS ORDERED: ETOMIDATE 20 MG/10 ML VIAL IV ONE (16:38)
[2018-10-13] MEDS ORDERED: ROCURONIUM 100 MG/10 ML VIAL IV ONE (16:40)
[2018-10-13] MEDS ORDERED: PHENYLEPHRINE DRIP 40 MG/250 ML PREMIX IV ONE (16:44)
[2018-10-13 16:45] LABS: Calcium 9.2 MG/DL (8.5-10.1)
[2018-10-13] MEDS: PHENYLEPHRINE DRIP 40 MG/250 ML PREMIX IV PRN (16:50)
[2018-10-13 17:18] LABS: ABG Base Excess 0.3 MMOL/L (-2.5-2.5); ABG HCO3 24.8 MMOL/L (20-26); ABG Oxygen Saturation 99.6 % (95-100); ABG PCO2 57.6 MM HG (35-48); ABG PH 7.293 (7.35-7.45); ABG TCO2 25.6 MMOL/L (23-27); Allen Test Positive; Pt O2 Delivery Device Ventilator
[2018-10-13] MEDS: SIMVASTATIN 10 MG TABLET PEG SCH (20:36)
[2018-10-13] MEDS: DONEPEZIL 5 MG TABLET PEG SCH (20:36)
[2018-10-13] MEDS: SODIUM CHLORIDE 0.45% 1,000 ML IV SCH (21:40)
[2018-10-13] MEDS: PROPOFOL 1,000 MG/100 ML BOTTLE IV SCH ×2 (22:31→23:41)
[2018-10-13] MEDS: dilTIAZem Drip 125 MG/125 ML PREMIX IV SCH (22:31)
[2018-10-13] MEDS ORDERED: FUROSEMIDE 20 MG/2 ML VIAL IV ONE (23:06)
[2018-10-14] MEDS: PHENYLEPHRINE DRIP 40 MG/250 ML PREMIX IV PRN (00:33)
[2018-10-14] MEDS: ALBUTEROL/IPRATROPIUM 3 ML NEB RESP TX SCH ×6 (03:25→23:42)
[2018-10-14 03:41] LABS: ABG Base Excess 1.3 MMOL/L (-2.5-2.5); ABG HCO3 23.8 MMOL/L (20-26); ABG Oxygen Saturation 98.7 % (95-100); ABG PCO2 30.5 MM HG (35-48); ABG PO2 204.8 MM HG (80-95); ABG TCO2 24.7 MMOL/L (23-27); Allen Test Positive; Pt O2 Delivery Device BIPAP
[2018-10-14 04:51] LABS: Basophils % 0.2 % (0.0-0.8); Eosinophils # 0.1 10*3/uL (0.0-0.87); Eosinophils % 0.9 % (0.00-10.9); Hematocrit 30.4 VOL% (35.7-47.0); Hemoglobin 9.4 GM/DL (12.0-16.0); Immature Granulocytes % 0.9 %; Immature Granulocytes Absolute 0.11 #; Lymphocytes # 2.2 10*3/uL (1.4-4.0); Lymphocytes % 18.3 % (21.3-54.2); Mean Corpuscular HGB Conc 30.9 GM/DL (32-36); Mean Corpuscular Volume 95.9 FL (87-102); Mean Platelet Volume 9.6 FL (9.6-12.0); Monocytes % 10.1 % (1.7-12.7); Neutrophils % 69.6 % (38.7-73.9); Platelet Count 199 T/CUMM (130-400); Red Blood Count 3.17 MC/CUMM (3.8-5.5); Red Cell Distribution Width 14.9 % (9.3-17.3); White Blood Count 12.1 T/CUMM (4-12)
[2018-10-14] MEDS: PIPERACILLIN/TAZOBACTAM 3,375 MG in SODIUM CHLORIDE 0.9% 100 ML IV SCH ×3 (05:50→20:15)
[2018-10-14] MEDS: SODIUM CHLORIDE 0.45% 1,000 ML IV SCH ×2 (06:05→11:00)
[2018-10-14 06:25] LABS: Calcium 9.4 MG/DL (8.5-10.1); Osmolality,Calculated 292.3 MOS/KG (273-304)
[2018-10-14] MEDS: INSULIN REGULAR 100 UNIT/ML SUBCUT SCH ×4 (06:29→22:03)
[2018-10-14] MEDS: POLYETHYLENE GLYCOL POWDER 17 GM PACK PEG PRN (06:36)
[2018-10-14] MEDS: SUCRALFATE 1 GM/10 ML UDCUP PO SCH ×2 (06:36→22:04)
[2018-10-14] MEDS: ASPIRIN EC 81 MG TABLET PO SCH (09:53)
[2018-10-14] MEDS: DOCUSATE SODIUM 100 MG/10 ML UDCUP PEG SCH ×2 (12:00→20:15)
[2018-10-14] MEDS: CLOPIDOGREL 75 MG TABLET PEG SCH (12:00)
[2018-10-14] MEDS: ASPIRIN CHEW 81 MG TABLET PO SCH (12:00)
[2018-10-14] MEDS: DONEPEZIL 5 MG TABLET PEG SCH (20:15)
[2018-10-14] MEDS: SIMVASTATIN 10 MG TABLET PEG SCH (20:15)
[2018-10-14] MEDS: NYSTATIN CREAM 15 GM TUBE TOP SCH ×2 (20:15→22:01)
[2018-10-14] MEDS: ZINC OXIDE PASTE 113 GM TUBE TOP SCH ×2 (20:15→22:01)
[2018-10-14] MEDS: traMADol 50 MG TABLET PEG SCH (20:15)
[2018-10-14] MEDS: dilTIAZem Drip 125 MG/125 ML PREMIX IV SCH (21:53)
[2018-10-14] MEDS: LORATADINE 10 MG TABLET PEG SCH (22:01)
[2018-10-14] MEDS: PROPOFOL 1,000 MG/100 ML BOTTLE IV SCH (22:16)
[2018-10-15] MEDS: SODIUM CHLORIDE 0.45% 1,000 ML IV SCH ×2 (00:20→12:21)
[2018-10-15] MEDS: INSULIN REGULAR 100 UNIT/ML SUBCUT SCH ×5 (00:47→23:42)
[2018-10-15] MEDS: PHENYLEPHRINE DRIP 40 MG/250 ML PREMIX IV PRN (01:20)
[2018-10-15 03:22] LABS: ABG Base Excess -0.8 MMOL/L (-2.5-2.5); ABG HCO3 23.7 MMOL/L (20-26); ABG Oxygen Saturation 99.5 % (95-100); ABG PH 7.395 (7.35-7.45); ABG TCO2 21.9 MMOL/L (23-27); Allen Test Positive; Pt O2 Delivery Device Ventilator
[2018-10-15] MEDS: ALBUTEROL/IPRATROPIUM 3 ML NEB RESP TX SCH ×6 (03:59→23:45)
[2018-10-15] MEDS: PIPERACILLIN/TAZOBACTAM 3,375 MG in SODIUM CHLORIDE 0.9% 100 ML IV SCH ×3 (05:40→20:09)
[2018-10-15] MEDS: PROPOFOL 1,000 MG/100 ML BOTTLE IV SCH (05:55)
[2018-10-15 06:03] LABS: Basophils % 0.5 % (0.0-0.8); Eosinophils # 0.6 10*3/uL (0.0-0.87); Hemoglobin 9.3 GM/DL (12.0-16.0); Immature Granulocytes % 0.6 %; Immature Granulocytes Absolute 0.05 #; Lymphocytes # 1.6 10*3/uL (1.4-4.0); Lymphocytes % 20.3 % (21.3-54.2); Mean Corpuscular HGB Conc 32.1 GM/DL (32-36); Mean Corpuscular Volume 94.2 FL (87-102); Mean Platelet Volume 9.6 FL (9.6-12.0); Monocytes % 6.8 % (1.7-12.7); Neutrophils % 64.8 % (38.7-73.9); Platelet Count 225 T/CUMM (130-400); Red Blood Count 3.08 MC/CUMM (3.8-5.5); Red Cell Distribution Width 14.8 % (9.3-17.3); White Blood Count 8.1 T/CUMM (4-12)
[2018-10-15 06:35] LABS: Calcium 9.3 MG/DL (8.5-10.1); Osmolality,Calculated 293.3 MOS/KG (273-304)
[2018-10-15] MEDS: ASPIRIN CHEW 81 MG TABLET PO SCH (09:23)
[2018-10-15] MEDS: LORATADINE 10 MG TABLET PEG SCH (09:23)
[2018-10-15] MEDS: DOCUSATE SODIUM 100 MG/10 ML UDCUP PEG SCH ×2 (09:23→20:09)
[2018-10-15] MEDS: SUCRALFATE 1 GM/10 ML UDCUP PO SCH ×2 (09:23→16:09)
[2018-10-15] MEDS: NYSTATIN CREAM 15 GM TUBE TOP SCH ×2 (09:24→20:13)
[2018-10-15] MEDS: ZINC OXIDE PASTE 113 GM TUBE TOP SCH ×2 (09:24→20:13)
[2018-10-15] MEDS: CLOPIDOGREL 75 MG TABLET PEG SCH (09:26)
[2018-10-15] MEDS: methylPREDNISolone SOD SUC 40 MG/1 ML VIAL IV SCH ×2 (09:26→16:33)
[2018-10-15] MEDS: POTASSIUM CHLORIDE 20 MEQ/15 ML UDCUP PER TUBE PRN ×4 (11:17→18:46)
[2018-10-15] MEDS: SIMVASTATIN 10 MG TABLET PEG SCH (20:08)
[2018-10-15] MEDS: DONEPEZIL 5 MG TABLET PEG SCH (20:08)
[2018-10-15] MEDS: dilTIAZem Drip 125 MG/125 ML PREMIX IV SCH (22:08)
[2018-10-16] MEDS: SODIUM CHLORIDE 0.45% 1,000 ML IV SCH ×3 (01:17→16:50)
[2018-10-16] MEDS: methylPREDNISolone SOD SUC 40 MG/1 ML VIAL IV SCH ×3 (01:17→17:18)
[2018-10-16] MEDS: ALBUTEROL/IPRATROPIUM 3 ML NEB RESP TX SCH ×6 (02:50→23:36)
[2018-10-16] MEDS: PROPOFOL 1,000 MG/100 ML BOTTLE IV SCH (02:58)
[2018-10-16 05:29] LABS: ABG HCO3 20.9 MMOL/L (20-26); ABG Oxygen Saturation 98.4 % (95-100); ABG PCO2 32.9 MM HG (35-48); ABG PO2 132.8 MM HG (80-95); ABG TCO2 21.9 MMOL/L (23-27); Allen Test Positive; Pt O2 Delivery Device Ventilator
[2018-10-16 05:59] LABS: Hematocrit 30.5 VOL% (35.7-47.0); Hemoglobin 9.3 GM/DL (12.0-16.0); Immature Granulocytes Absolute 0.04 #; Lymphocytes # 0.5 10*3/uL (1.4-4.0); Lymphocytes % 11.2 % (21.3-54.2); Mean Corpuscular HGB Conc 30.5 GM/DL (32-36); Mean Corpuscular Volume 96.8 FL (87-102); Mean Platelet Volume 9.6 FL (9.6-12.0); Monocytes % 2.2 % (1.7-12.7); Neutrophils % 85.6 % (38.7-73.9); Platelet Count 189 T/CUMM (130-400); Red Blood Count 3.15 MC/CUMM (3.8-5.5); Red Cell Distribution Width 14.8 % (9.3-17.3); White Blood Count 4.2 T/CUMM (4-12)
[2018-10-16] MEDS: PIPERACILLIN/TAZOBACTAM 3,375 MG in SODIUM CHLORIDE 0.9% 100 ML IV SCH ×2 (06:15→12:06)
[2018-10-16] MEDS: INSULIN REGULAR 100 UNIT/ML SUBCUT SCH ×4 (06:16→23:30)
[2018-10-16 06:22] LABS: Calcium 9.3 MG/DL (8.5-10.1); Osmolality,Calculated 300.4 MOS/KG (273-304)
[2018-10-16] MEDS: LORATADINE 10 MG TABLET PEG SCH (08:05)
[2018-10-16] MEDS: NYSTATIN CREAM 15 GM TUBE TOP SCH ×2 (08:05→20:12)
[2018-10-16] MEDS: ZINC OXIDE PASTE 113 GM TUBE TOP SCH ×2 (08:05→20:11)
[2018-10-16] MEDS: ASPIRIN CHEW 81 MG TABLET PO SCH (08:05)
[2018-10-16] MEDS: CLOPIDOGREL 75 MG TABLET PEG SCH (08:05)
[2018-10-16] MEDS: SUCRALFATE 1 GM/10 ML UDCUP PO SCH ×2 (08:05→17:18)
[2018-10-16] MEDS: DOCUSATE SODIUM 100 MG/10 ML UDCUP PEG SCH ×2 (08:05→20:08)
[2018-10-16] MEDS: DONEPEZIL 5 MG TABLET PEG SCH (20:11)
[2018-10-16] MEDS: traMADol 50 MG TABLET PEG SCH (20:11)
[2018-10-16] MEDS: SIMVASTATIN 10 MG TABLET PEG SCH (20:12)
[2018-10-16] MEDS ORDERED: cloNIDine 0.1 MG/24 HR PATCH TRANSDERM SCH (21:00)
[2018-10-16] MEDS: dilTIAZem Drip 125 MG/125 ML PREMIX IV SCH (22:22)
[2018-10-17] MEDS: methylPREDNISolone SOD SUC 40 MG/1 ML VIAL IV SCH ×3 (01:01→17:31)
[2018-10-17] MEDS: ALBUTEROL/IPRATROPIUM 3 ML NEB RESP TX SCH ×6 (02:56→23:05)
[2018-10-17] MEDS: SODIUM CHLORIDE 0.45% 1,000 ML IV SCH ×2 (04:36→16:32)
[2018-10-17 04:59] LABS: Basophils % 0.2 % (0.0-0.8); Hematocrit 32.7 VOL% (35.7-47.0); Hemoglobin 9.8 GM/DL (12.0-16.0); Immature Granulocytes % 0.8 %; Lymphocytes # 0.7 10*3/uL (1.4-4.0); Lymphocytes % 5.8 % (21.3-54.2); Mean Platelet Volume 9.6 FL (9.6-12.0); Monocytes % 2.2 % (1.7-12.7); Platelet Count 246 T/CUMM (130-400); Red Blood Count 3.27 MC/CUMM (3.8-5.5); Red Cell Distribution Width 15.1 % (9.3-17.3)
[2018-10-17] MEDS: INSULIN REGULAR 100 UNIT/ML SUBCUT SCH ×4 (05:23→23:22)
[2018-10-17 05:24] LABS: Calcium 9.2 MG/DL (8.5-10.1); Osmolality,Calculated 298.1 MOS/KG (273-304)
[2018-10-17 05:27] LABS: Lymphocytes 7 % (20-55); Segmented Neutrophils 93 % (50-85); Total Cells Counted 100
[2018-10-17 05:29] LABS: Acanthocytes Few; Anisocytosis 1+; Platelet Estimate Adequate
[2018-10-17] MEDS: DOCUSATE SODIUM 100 MG/10 ML UDCUP PEG SCH ×2 (08:52→20:23)
[2018-10-17] MEDS: SUCRALFATE 1 GM/10 ML UDCUP PO SCH ×2 (08:52→17:32)
[2018-10-17] MEDS: LORATADINE 10 MG TABLET PEG SCH (08:52)
[2018-10-17] MEDS: CARVEDILOL 3.125 MG TABLET PO SCH ×2 (08:52→17:32)
[2018-10-17] MEDS: NYSTATIN CREAM 15 GM TUBE TOP SCH ×2 (08:52→20:23)
[2018-10-17] MEDS: CLOPIDOGREL 75 MG TABLET PEG SCH (08:52)
[2018-10-17] MEDS: ZINC OXIDE PASTE 113 GM TUBE TOP SCH ×2 (08:53→20:23)
[2018-10-17] MEDS: ASPIRIN CHEW 81 MG TABLET PO SCH (08:53)
[2018-10-17] MEDS ORDERED: amLODIPine 2.5 MG TABLET PO SCH (09:32)
[2018-10-17] MEDS: IBUPROFEN 100 MG/5 ML UDCUP PO PRN (18:42)
[2018-10-17] MEDS: DONEPEZIL 5 MG TABLET PEG SCH (20:21)
[2018-10-17] MEDS: SIMVASTATIN 10 MG TABLET PEG SCH (20:21)
[2018-10-17] MEDS: dilTIAZem Drip 125 MG/125 ML PREMIX IV SCH (22:44)
[2018-10-18] MEDS: methylPREDNISolone SOD SUC 40 MG/1 ML VIAL IV SCH ×3 (01:36→17:15)
[2018-10-18] MEDS: ALBUTEROL/IPRATROPIUM 3 ML NEB RESP TX SCH ×5 (02:58→19:43)
[2018-10-18] MEDS: INSULIN REGULAR 100 UNIT/ML SUBCUT SCH ×3 (05:18→19:46)
[2018-10-18] MEDS: SODIUM CHLORIDE 0.45% 1,000 ML IV SCH (05:18)
[2018-10-18 05:30] LABS: Basophils % 0.1 % (0.0-0.8); Hematocrit 32.7 VOL% (35.7-47.0); Immature Granulocytes % 0.8 %; Immature Granulocytes Absolute 0.12 #; Lymphocytes # 0.5 10*3/uL (1.4-4.0); Lymphocytes % 3.3 % (21.3-54.2); Mean Corpuscular HGB Conc 30.6 GM/DL (32-36); Mean Corpuscular Volume 97.6 FL (87-102); Mean Platelet Volume 9.4 FL (9.6-12.0); Monocytes % 1.5 % (1.7-12.7); Neutrophils % 94.3 % (38.7-73.9); Platelet Count 275 T/CUMM (130-400); Red Blood Count 3.35 MC/CUMM (3.8-5.5); Red Cell Distribution Width 15.8 % (9.3-17.3); White Blood Count 14.7 T/CUMM (4-12)
[2018-10-18 06:04] LABS: Atypical Lymphocytes Few; Lymphocytes 8 % (20-55); Segmented Neutrophils 90 % (50-85); Total Cells Counted 100
[2018-10-18 06:05] LABS: Calcium 9.2 MG/DL (8.5-10.1); Osmolality,Calculated 297.3 MOS/KG (273-304)
[2018-10-18 06:05] LABS: Anisocytosis 1+; Platelet Estimate Adequate
[2018-10-18 06:10] LABS: Prealbumin 21.2 MG/DL (20-40)
[2018-10-18] MEDS: POLYETHYLENE GLYCOL POWDER 17 GM PACK PEG PRN (06:37)
[2018-10-18] MEDS: CLOPIDOGREL 75 MG TABLET PEG SCH (09:42)
[2018-10-18] MEDS: CARVEDILOL 3.125 MG TABLET PO SCH ×2 (09:42→17:10)
[2018-10-18] MEDS: SUCRALFATE 1 GM/10 ML UDCUP PO SCH ×2 (09:42→17:10)
[2018-10-18] MEDS: ASPIRIN CHEW 81 MG TABLET PO SCH (09:42)
[2018-10-18] MEDS: LORATADINE 10 MG TABLET PEG SCH (09:43)
[2018-10-18] MEDS: DOCUSATE SODIUM 100 MG/10 ML UDCUP PEG SCH ×2 (09:43→20:48)
[2018-10-18] MEDS: amLODIPine 5 MG TABLET PO SCH (09:43)
[2018-10-18] MEDS: NYSTATIN CREAM 15 GM TUBE TOP SCH ×2 (19:45→21:09)
[2018-10-18] MEDS: ZINC OXIDE PASTE 113 GM TUBE TOP SCH ×2 (19:45→21:09)
[2018-10-18] MEDS: ACETAMINOPHEN 325 MG TABLET PO PRN (20:49)
[2018-10-18] MEDS: DONEPEZIL 5 MG TABLET PEG SCH (20:49)
[2018-10-18] MEDS: SIMVASTATIN 10 MG TABLET PEG SCH (20:49)
[2018-10-19] MEDS: INSULIN REGULAR 100 UNIT/ML SUBCUT SCH ×3 (00:12→14:18)
[2018-10-19] MEDS: ALBUTEROL/IPRATROPIUM 3 ML NEB RESP TX SCH ×6 (00:22→19:30)
[2018-10-19 05:24] LABS: Basophils % 0.1 % (0.0-0.8); Hematocrit 33.3 VOL% (35.7-47.0); Hemoglobin 10.2 GM/DL (12.0-16.0); Immature Granulocytes % 0.6 %; Immature Granulocytes Absolute 0.09 #; Lymphocytes # 0.9 10*3/uL (1.4-4.0); Lymphocytes % 5.9 % (21.3-54.2); Mean Corpuscular HGB Conc 30.6 GM/DL (32-36); Mean Corpuscular Volume 97.4 FL (87-102); Mean Platelet Volume 9.3 FL (9.6-12.0); Monocytes % 5.6 % (1.7-12.7); Neutrophils % 87.8 % (38.7-73.9); Platelet Count 295 T/CUMM (130-400); Red Blood Count 3.42 MC/CUMM (3.8-5.5); Red Cell Distribution Width 15.9 % (9.3-17.3); White Blood Count 15.8 T/CUMM (4-12)
[2018-10-19 05:55] LABS: Calcium 9.5 MG/DL (8.5-10.1); Osmolality,Calculated 297.3 MOS/KG (273-304)
[2018-10-19] MEDS ORDERED: methylPREDNISolone SOD SUC 40 MG/1 ML VIAL IV SCH (06:00)
[2018-10-19] MEDS: CLOPIDOGREL 75 MG TABLET PEG SCH (09:50)
[2018-10-19] MEDS: SUCRALFATE 1 GM/10 ML UDCUP PO SCH (09:50)
[2018-10-19] MEDS: DOCUSATE SODIUM 100 MG/10 ML UDCUP PEG SCH (09:50)
[2018-10-19] MEDS: amLODIPine 5 MG TABLET PO SCH (09:50)
[2018-10-19] MEDS: LORATADINE 10 MG TABLET PEG SCH (09:50)
[2018-10-19] MEDS: CARVEDILOL 3.125 MG TABLET PO SCH (09:50)
[2018-10-19] MEDS: ASPIRIN CHEW 81 MG TABLET PO SCH (09:50)
[2018-10-19] MEDS: ZINC OXIDE PASTE 113 GM TUBE TOP SCH (14:17)
[2018-10-19] MEDS: NYSTATIN CREAM 15 GM TUBE TOP SCH (14:18)
[2018-10-19 16:33] VITALS: BP 136/60
[2018-10-23] MEDS ORDERED: cloNIDine 0.1 MG/24 HR PATCH TRANSDERM SCH (21:00)
== END 2018-10-19 19:45 | disposition home health service (06) | DRG 640 ==
LOC: EDBD → EDUNIT# → N.ED 15:22 → N.EDINP 17:16 → N.5E 18:19 → N.ICU 10-13 16:44 → N.5E 10-19 06:53
PROVIDERS: ADMIT Internal Medicine; ATTEND Internal Medicine

== ENCOUNTER 2018-10-24 19:06 | Inpatient (IN) ==
[2018-10-24] MEDS ORDERED: CLINDAMYCIN INJ 900 MG in PREMIX 1 EACH IV STA (19:52)
[2018-10-24] MEDS ORDERED: PIPERACILLIN/TAZOBACTAM 3,375 MG in SODIUM CHLORIDE 0.9% 100 ML IV STA (19:54)
[2018-10-24 20:11] LABS: Basophils % 0.2 % (0.0-0.8); Eosinophils # 0.2 10*3/uL (0.0-0.87); Eosinophils % 1.7 % (0.00-10.9); Hematocrit 36.6 VOL% (35.7-47.0); Hemoglobin 10.6 GM/DL (12.0-16.0); Immature Granulocytes % 0.6 %; Immature Granulocytes Absolute 0.08 #; Lymphocytes # 0.7 10*3/uL (1.4-4.0); Mean Corpuscular Volume 102.5 FL (87-102); Mean Platelet Volume 8.6 FL (9.6-12.0); Monocytes % 6.7 % (1.7-12.7); Neutrophils % 85.8 % (38.7-73.9); Platelet Count 199 T/CUMM (130-400); Red Blood Count 3.57 MC/CUMM (3.8-5.5); Red Cell Distribution Width 15.3 % (9.3-17.3); White Blood Count 13.2 T/CUMM (4-12)
[2018-10-24 20:24] LABS: INR 0.9; PT Patient Result 9.8 SECS; Partial Thromboplastin Time 26.5 SECS (0-40)
[2018-10-24] MEDS ORDERED: SODIUM CHLORIDE 0.9% 1,000 ML IV STA (20:28)
[2018-10-24 20:30] LABS: Alanine Aminotransferase 16 U/L (13-56); Albumin 2.5 G/DL (3.4-5.0); Alkaline Phosphatase 90 U/L (45-117); Aspartate Amino Transferase 17 U/L (0-37); Bilirubin,Total < 0.39 MG/DL (0.2-1.0); Blood Urea Nitrogen 36 MG/DL (7-18); Calcium 9.4 MG/DL (8.5-10.1); Glucose 121 MG/DL (74-106); Osmolality,Calculated 287.4 MOS/KG (273-304)
[2018-10-24 20:42] LABS: ABG Base Excess -0.8 MMOL/L (-2.5-2.5); ABG HCO3 23.8 MMOL/L (20-26); ABG Oxygen Saturation 98.6 % (95-100); ABG TCO2 29.1 MMOL/L (23-27)
[2018-10-24 20:43] LABS: Allen Test Positive
[2018-10-24 20:53] LABS: ABG PCO2 89.6 MM HG (35-48); ABG PH 7.143 (7.35-7.45)
[2018-10-24 21:40] LABS: Apearance,Urine CLEAR (Clear); Bilirubin,Urine Negative (Negative); Blood, Urine Negative (Negative); Glucose,Urine (UA) Negative (Negative); Ketones,Urine Negative (Negative); Mucus,Urine Occasional /LPF (Occasional); Nitrite,Urine Negative (Negative); Protein,Urine 30 MG/DL; RBC,Urine 6 /HPF (0-4); Squamous Epithelial Cell,Urine Occasional /HPF (0-10); Urine Color Yellow (Yellow); Urine Specific Gravity 1.012 (1.001-1.035); Urine Urobilinogen < 2.0 EU/DL (0.2-1.0); WBC,Urine 8 /HPF (0-6)
[2018-10-24] MEDS ORDERED: EPINEPHrine 1 MG/ML VIAL ONE (23:06)
[2018-10-24] MEDS ORDERED: ALBUTEROL 2.5 MG/3 ML NEB RESP TX PRN (23:33)
[2018-10-24] MEDS ORDERED: ONDANSETRON 4 MG/2 ML VIAL IV PRN (23:33)
[2018-10-25] MEDS: PROPOFOL 1,000 MG/100 ML BOTTLE IV SCH ×2 (01:40→13:00)
[2018-10-25] MEDS: CLINDAMYCIN INJ 600 MG in PREMIX 1 EACH IV SCH ×3 (02:46→18:33)
[2018-10-25] MEDS: FAMOTIDINE 20 MG/2 ML VIAL IV SCH ×2 (02:46→15:18)
[2018-10-25] MEDS: ENOXAPARIN 40 MG/0.4 ML SYRINGE SUBCUT SCH (02:46)
[2018-10-25 03:39] LABS: ABG HCO3 23.6 MMOL/L (20-26); ABG Oxygen Saturation 99.8 % (95-100); ABG PCO2 63.1 MM HG (35-48); ABG PH 7.245 (7.35-7.45); ABG TCO2 25.7 MMOL/L (23-27); Allen Test Positive; Pt O2 Delivery Device Ventilator
[2018-10-25] MEDS ORDERED: ETOMIDATE 20 MG/10 ML VIAL IV ONE (04:51)
[2018-10-25] MEDS ORDERED: ROCURONIUM 100 MG/10 ML VIAL IV ONE (04:52)
[2018-10-25] MEDS: PIPERACILLIN/TAZOBACTAM 3,375 MG in SODIUM CHLORIDE 0.9% 100 ML IV SCH ×3 (05:39→21:45)
[2018-10-25 05:42] LABS: Calcium 9.2 MG/DL (8.5-10.1); Osmolality,Calculated 289.1 MOS/KG (273-304)
[2018-10-25] MEDS ORDERED: FUROSEMIDE 40 MG/4 ML VIAL IV ONE (07:09)
[2018-10-25] MEDS: methylPREDNISolone SOD SUC 40 MG/1 ML VIAL IV SCH ×3 (08:29→23:53)
[2018-10-25] MEDS: DESITIN 4OZ/NYSTATIN 15 GRAM MIXTURE PASTE TOP SCH ×2 (14:13→21:45)
[2018-10-25 14:59] LABS: Basophils % 0.1 % (0.0-0.8); Eosinophils % 0.1 % (0.00-10.9); Immature Granulocytes % 1.2 %; Immature Granulocytes Absolute 0.09 #; Lymphocytes % 13.2 % (21.3-54.2); Mean Corpuscular HGB Conc 28.6 GM/DL (32-36); Mean Corpuscular Volume 103.7 FL (87-102); Monocytes % 4.6 % (1.7-12.7); Neutrophils % 80.8 % (38.7-73.9); Platelet Count 159 T/CUMM (130-400); Red Cell Distribution Width 15.1 % (9.3-17.3); White Blood Count 7.2 T/CUMM (4-12)
[2018-10-25] MEDS ORDERED: METOPROLOL TARTRATE 5 MG/5 ML VIAL IV PRN (15:16)
[2018-10-25 15:22] LABS: Calcium 8.9 MG/DL (8.5-10.1); Osmolality,Calculated 287.3 MOS/KG (273-304)
[2018-10-25] MEDS ORDERED: SODIUM CHLORIDE 0.9% 250 ML IV ONE (15:39)
[2018-10-25 15:43] LABS: Free T4 (Free Thyroxine) 0.91 NG/DL (0.76-1.46)
[2018-10-25] MEDS: CARVEDILOL 3.125 MG TABLET PO SCH (16:07)
[2018-10-25 16:13] LABS: Anisocytosis 1+; Lymphocytes 13 % (20-55); Macrocytosis 1+; Microcytosis 1+; Platelet Estimate Normal; Segmented Neutrophils 82 % (50-85); Total Cells Counted 100
[2018-10-26] MEDS: PROPOFOL 1,000 MG/100 ML BOTTLE IV SCH ×3 (02:30→21:36)
[2018-10-26] MEDS: CLINDAMYCIN INJ 600 MG in PREMIX 1 EACH IV SCH ×3 (03:22→18:16)
[2018-10-26] MEDS: FAMOTIDINE 20 MG/2 ML VIAL IV SCH ×2 (03:23→14:51)
[2018-10-26] MEDS: ENOXAPARIN 40 MG/0.4 ML SYRINGE SUBCUT SCH (03:23)
[2018-10-26 04:20] LABS: Hematocrit 25.7 VOL% (35.7-47.0); Hemoglobin 7.7 GM/DL (12.0-16.0); Immature Granulocytes % 0.5 %; Immature Granulocytes Absolute 0.02 #; Lymphocytes # 0.7 10*3/uL (1.4-4.0); Lymphocytes % 16.7 % (21.3-54.2); Mean Corpuscular Volume 98.5 FL (87-102); Mean Platelet Volume 8.8 FL (9.6-12.0); Monocytes % 1.2 % (1.7-12.7); Neutrophils % 81.6 % (38.7-73.9); Platelet Count 154 T/CUMM (130-400); Red Blood Count 2.61 MC/CUMM (3.8-5.5); Red Cell Distribution Width 14.8 % (9.3-17.3); White Blood Count 4.1 T/CUMM (4-12)
[2018-10-26 04:37] LABS: Albumin 2.1 G/DL (3.4-5.0); Bilirubin,Total 0.5 MG/DL (0.2-1.0); Calcium 9.2 MG/DL (8.5-10.1); Osmolality,Calculated 291.1 MOS/KG (273-304); Total Protein 5.8 G/DL (6.4-8.3)
[2018-10-26 04:42] LABS: ABG Base Excess -1.1 MMOL/L (-2.5-2.5); ABG HCO3 23.5 MMOL/L (20-26); ABG Oxygen Saturation 99.8 % (95-100); ABG PH 7.446 (7.35-7.45); ABG TCO2 21.8 MMOL/L (23-27); Allen Test Positive; Pt O2 Delivery Device Ventilator
[2018-10-26] MEDS: PIPERACILLIN/TAZOBACTAM 3,375 MG in SODIUM CHLORIDE 0.9% 100 ML IV SCH ×3 (05:37→21:17)
[2018-10-26] MEDS: methylPREDNISolone SOD SUC 40 MG/1 ML VIAL IV SCH ×2 (06:40→14:52)
[2018-10-26] MEDS: DESITIN 4OZ/NYSTATIN 15 GRAM MIXTURE PASTE TOP SCH ×2 (08:47→21:17)
[2018-10-26] MEDS: CARVEDILOL 3.125 MG TABLET PO SCH ×2 (09:00→17:31)
[2018-10-26] MEDS ORDERED: CLOPIDOGREL 75 MG TABLET PEG SCH (09:00)
[2018-10-26] MEDS: SIMVASTATIN 10 MG TABLET PO SCH (09:30)
[2018-10-26] MEDS: ASPIRIN CHEW 81 MG TABLET PO SCH (09:30)
[2018-10-26] MEDS: ASCORBIC ACID 500 MG TABLET PO SCH ×2 (09:30→21:17)
[2018-10-26] MEDS ORDERED: GLUCAGON 1 MG VIAL IM PRN (11:05)
[2018-10-26] MEDS ORDERED: DEXTROSE 50% 25 GM/50 ML VIAL IV PRN (11:05)
[2018-10-26] MEDS: INSULIN REGULAR 100 UNIT/ML SUBCUT SCH ×2 (12:16→18:26)
[2018-10-26 13:50] LABS: Hematocrit 26.9 VOL% (35.7-47.0); Hemoglobin 8.1 GM/DL (12.0-16.0)
[2018-10-27] MEDS: methylPREDNISolone SOD SUC 40 MG/1 ML VIAL IV SCH ×3 (00:24→16:28)
[2018-10-27] MEDS: INSULIN REGULAR 100 UNIT/ML SUBCUT SCH ×4 (00:25→18:55)
[2018-10-27] MEDS: PROPOFOL 1,000 MG/100 ML BOTTLE IV SCH ×2 (02:58→09:11)
[2018-10-27] MEDS: CLINDAMYCIN INJ 600 MG in PREMIX 1 EACH IV SCH ×3 (03:24→18:55)
[2018-10-27] MEDS: ENOXAPARIN 40 MG/0.4 ML SYRINGE SUBCUT SCH (03:24)
[2018-10-27] MEDS: FAMOTIDINE 20 MG/2 ML VIAL IV SCH ×2 (03:25→16:29)
[2018-10-27] MEDS: PIPERACILLIN/TAZOBACTAM 3,375 MG in SODIUM CHLORIDE 0.9% 100 ML IV SCH ×3 (04:40→20:54)
[2018-10-27 04:46] LABS: ABG Base Excess 0.1 MMOL/L (-2.5-2.5); ABG HCO3 23.3 MMOL/L (20-26); ABG Oxygen Saturation 98.5 % (95-100); ABG PCO2 31.6 MM HG (35-48); ABG PH 7.485 (7.35-7.45); ABG TCO2 24.2 MMOL/L (23-27); Allen Test Positive; Pt O2 Delivery Device Ventilator
[2018-10-27 04:46] LABS: Hematocrit 27.8 VOL% (35.7-47.0); Hemoglobin 8.6 GM/DL (12.0-16.0); Immature Granulocytes % 0.6 %; Immature Granulocytes Absolute 0.04 #; Lymphocytes # 1.2 10*3/uL (1.4-4.0); Lymphocytes % 19.9 % (21.3-54.2); Mean Corpuscular HGB Conc 30.9 GM/DL (32-36); Mean Corpuscular Volume 96.9 FL (87-102); Mean Platelet Volume 9.3 FL (9.6-12.0); Monocytes % 5.9 % (1.7-12.7); Neutrophils % 73.6 % (38.7-73.9); Platelet Count 176 T/CUMM (130-400); Red Blood Count 2.87 MC/CUMM (3.8-5.5); Red Cell Distribution Width 14.9 % (9.3-17.3); White Blood Count 6.2 T/CUMM (4-12)
[2018-10-27 05:15] LABS: Albumin 2.1 G/DL (3.4-5.0); Bilirubin,Total 0.4 MG/DL (0.2-1.0); Calcium 9.3 MG/DL (8.5-10.1); Total Protein 5.6 G/DL (6.4-8.3)
[2018-10-27 05:16] LABS: Prealbumin 19.2 MG/DL (20-40)
[2018-10-27] MEDS ORDERED: amLODIPine 5 MG TABLET PO SCH (09:00)
[2018-10-27] MEDS: ASCORBIC ACID 500 MG TABLET PO SCH ×2 (09:16→20:54)
[2018-10-27] MEDS: CARVEDILOL 3.125 MG TABLET PO SCH ×2 (09:16→16:33)
[2018-10-27] MEDS: ASPIRIN CHEW 81 MG TABLET PO SCH (09:17)
[2018-10-27] MEDS: SIMVASTATIN 10 MG TABLET PO SCH (09:18)
[2018-10-27] MEDS: POTASSIUM CHLORIDE 20 MEQ/15 ML UDCUP PER TUBE PRN ×4 (09:18→16:28)
[2018-10-27] MEDS: DESITIN 4OZ/NYSTATIN 15 GRAM MIXTURE PASTE TOP SCH ×2 (12:32→20:54)
[2018-10-27] MEDS: FLUCONAZOLE 40 MG/ML 35 ML/BOTTLE PO SCH (13:39)
[2018-10-27 17:35] LABS: Hematocrit 26.5 VOL% (35.7-47.0); Hemoglobin 8.4 GM/DL (12.0-16.0)
[2018-10-27] MEDS: fentaNYL 100 MCG/2 ML VIAL IV PRN (20:54)
[2018-10-28] MEDS: methylPREDNISolone SOD SUC 40 MG/1 ML VIAL IV SCH ×3 (00:30→17:27)
[2018-10-28] MEDS: INSULIN REGULAR 100 UNIT/ML SUBCUT SCH ×4 (00:31→18:59)
[2018-10-28] MEDS: PROPOFOL 1,000 MG/100 ML BOTTLE IV SCH ×2 (02:31→05:49)
[2018-10-28 03:50] LABS: ABG Base Excess -0.5 MMOL/L (-2.5-2.5); ABG Oxygen Saturation 98.9 % (95-100); ABG PCO2 38.2 MM HG (35-48); ABG PH 7.405 (7.35-7.45); ABG TCO2 21.7 MMOL/L (23-27); Allen Test Positive; Pt O2 Delivery Device Ventilator
[2018-10-28] MEDS: ENOXAPARIN 40 MG/0.4 ML SYRINGE SUBCUT SCH (03:59)
[2018-10-28] MEDS: FAMOTIDINE 20 MG/2 ML VIAL IV SCH ×2 (03:59→16:57)
[2018-10-28] MEDS: CLINDAMYCIN INJ 600 MG in PREMIX 1 EACH IV SCH ×3 (03:59→18:59)
[2018-10-28 04:14] LABS: Hematocrit 26.8 VOL% (35.7-47.0); Hemoglobin 8.2 GM/DL (12.0-16.0); Immature Granulocytes % 0.7 %; Immature Granulocytes Absolute 0.06 #; Lymphocytes # 0.6 10*3/uL (1.4-4.0); Lymphocytes % 6.8 % (21.3-54.2); Mean Corpuscular HGB Conc 30.6 GM/DL (32-36); Mean Corpuscular Volume 96.4 FL (87-102); Mean Platelet Volume 8.4 FL (9.6-12.0); Monocytes % 6.3 % (1.7-12.7); Neutrophils % 86.2 % (38.7-73.9); Platelet Count 180 T/CUMM (130-400); Red Blood Count 2.78 MC/CUMM (3.8-5.5); Red Cell Distribution Width 15.1 % (9.3-17.3); White Blood Count 9.1 T/CUMM (4-12)
[2018-10-28 04:43] LABS: Albumin 2.4 G/DL (3.4-5.0); Bilirubin,Total 0.5 MG/DL (0.2-1.0); Calcium 9.4 MG/DL (8.5-10.1); Osmolality,Calculated 301.8 MOS/KG (273-304)
[2018-10-28] MEDS: PIPERACILLIN/TAZOBACTAM 3,375 MG in SODIUM CHLORIDE 0.9% 100 ML IV SCH ×3 (05:49→21:54)
[2018-10-28] MEDS: ASPIRIN CHEW 81 MG TABLET PO SCH (09:02)
[2018-10-28] MEDS: SIMVASTATIN 10 MG TABLET PO SCH (09:02)
[2018-10-28] MEDS: amLODIPine 10 MG TABLET PO SCH (09:03)
[2018-10-28] MEDS: ASCORBIC ACID 500 MG TABLET PO SCH ×2 (09:03→21:54)
[2018-10-28] MEDS: CARVEDILOL 3.125 MG TABLET PO SCH ×2 (09:03→16:57)
[2018-10-28] MEDS: FLUCONAZOLE 40 MG/ML 35 ML/BOTTLE PO SCH (09:05)
[2018-10-28] MEDS ORDERED: FUROSEMIDE 40 MG/4 ML VIAL IV ONE (10:03)
[2018-10-28] MEDS: DESITIN 4OZ/NYSTATIN 15 GRAM MIXTURE PASTE TOP SCH (12:32)
[2018-10-28 15:45] LABS: Amylase,Body Fluid 30 U/L; Total Protein,Body Fluid 2.8 G/DL
[2018-10-28 16:11] LABS: Lymphocytes,Pleural Fluid 95 %; Neutrophils,Pleural Fluid 5 %
[2018-10-28 16:16] LABS: RBC,Pleural Fluid 46 T/CUMM
[2018-10-28 16:50] LABS: Hematocrit 27.8 VOL% (35.7-47.0); Hemoglobin 8.5 GM/DL (12.0-16.0)
[2018-10-29] MEDS: INSULIN REGULAR 100 UNIT/ML SUBCUT SCH ×5 (00:37→23:37)
[2018-10-29] MEDS: methylPREDNISolone SOD SUC 40 MG/1 ML VIAL IV SCH ×4 (00:37→23:37)
[2018-10-29] MEDS: DESITIN 4OZ/NYSTATIN 15 GRAM MIXTURE PASTE TOP SCH ×3 (00:37→22:15)
[2018-10-29] MEDS: PROPOFOL 1,000 MG/100 ML BOTTLE IV SCH (00:37)
[2018-10-29] MEDS: CLINDAMYCIN INJ 600 MG in PREMIX 1 EACH IV SCH ×2 (02:19→11:27)
[2018-10-29] MEDS: FAMOTIDINE 20 MG/2 ML VIAL IV SCH ×2 (02:20→15:03)
[2018-10-29 02:57] LABS: ABG Base Excess 1.5 MMOL/L (-2.5-2.5); ABG HCO3 25.8 MMOL/L (20-26); ABG Oxygen Saturation 99.8 % (95-100); ABG PCO2 34.6 MM HG (35-48); ABG PH 7.467 (7.35-7.45); ABG TCO2 23.1 MMOL/L (23-27); Allen Test Positive; Pt O2 Delivery Device Ventilator
[2018-10-29] MEDS: ENOXAPARIN 40 MG/0.4 ML SYRINGE SUBCUT SCH (04:34)
[2018-10-29] MEDS: PIPERACILLIN/TAZOBACTAM 3,375 MG in SODIUM CHLORIDE 0.9% 100 ML IV SCH ×3 (04:34→22:13)
[2018-10-29] MEDS: fentaNYL 100 MCG/2 ML VIAL IV PRN (04:35)
[2018-10-29 05:40] LABS: Basophils % 0.1 % (0.0-0.8); Eosinophils % 0.1 % (0.00-10.9); Hematocrit 26.8 VOL% (35.7-47.0); Hemoglobin 8.5 GM/DL (12.0-16.0); Immature Granulocytes % 0.9 %; Immature Granulocytes Absolute 0.06 #; Lymphocytes # 0.5 10*3/uL (1.4-4.0); Lymphocytes % 6.8 % (21.3-54.2); Mean Corpuscular HGB Conc 31.7 GM/DL (32-36); Mean Corpuscular Volume 95.7 FL (87-102); Mean Platelet Volume 9.4 FL (9.6-12.0); Monocytes % 2.5 % (1.7-12.7); Neutrophils % 89.6 % (38.7-73.9); Platelet Count 184 T/CUMM (130-400); Red Cell Distribution Width 15.1 % (9.3-17.3); White Blood Count 6.8 T/CUMM (4-12)
[2018-10-29 05:43] LABS: Alanine Aminotransferase 16 U/L (13-56); Albumin 2.4 G/DL (3.4-5.0); Alkaline Phosphatase 56 U/L (45-117); Aspartate Amino Transferase 14 U/L (0-37); Bilirubin,Total < 0.39 MG/DL (0.2-1.0); Blood Urea Nitrogen 49 MG/DL (7-18); Calcium 9.1 MG/DL (8.5-10.1); Glucose 172 MG/DL (74-106); Osmolality,Calculated 302.8 MOS/KG (273-304)
[2018-10-29 05:58] LABS: Hypochromasia 1+; Ovalocytes Slight; Platelet Estimate Adequate
[2018-10-29] MEDS: POTASSIUM CHLORIDE 20 MEQ/15 ML UDCUP PER TUBE PRN (06:50)
[2018-10-29] MEDS: CARVEDILOL 3.125 MG TABLET PO SCH ×2 (08:04→17:04)
[2018-10-29] MEDS: ASPIRIN CHEW 81 MG TABLET PO SCH (08:04)
[2018-10-29] MEDS: SIMVASTATIN 10 MG TABLET PO SCH (08:04)
[2018-10-29] MEDS: amLODIPine 10 MG TABLET PO SCH (08:04)
[2018-10-29] MEDS: ASCORBIC ACID 500 MG TABLET PO SCH ×2 (08:04→22:15)
[2018-10-29] MEDS: FLUCONAZOLE 40 MG/ML 35 ML/BOTTLE PO SCH (08:15)
[2018-10-29] MEDS: LOSARTAN 25 MG TABLET PO SCH (10:11)
[2018-10-29] MEDS: VANCOMYCIN INJ 1,000 MG in SODIUM CHLORIDE 0.9% 250 ML IV SCH ×2 (13:03→22:14)
[2018-10-30] MEDS: hydrALAZINE 20 MG/1 ML VIAL IV PRN (02:17)
[2018-10-30] MEDS: FAMOTIDINE 20 MG/2 ML VIAL IV SCH ×2 (02:22→15:31)
[2018-10-30] MEDS: ENOXAPARIN 40 MG/0.4 ML SYRINGE SUBCUT SCH (02:24)
[2018-10-30 05:01] LABS: Basophils % 0.1 % (0.0-0.8); Hematocrit 29.2 VOL% (35.7-47.0); Hemoglobin 9.2 GM/DL (12.0-16.0); Immature Granulocytes % 1.7 %; Immature Granulocytes Absolute 0.17 #; Lymphocytes # 0.5 10*3/uL (1.4-4.0); Lymphocytes % 5.1 % (21.3-54.2); Mean Corpuscular HGB Conc 31.5 GM/DL (32-36); Mean Corpuscular Volume 94.2 FL (87-102); Mean Platelet Volume 8.8 FL (9.6-12.0); Monocytes % 2.2 % (1.7-12.7); Neutrophils % 90.9 % (38.7-73.9); Platelet Count 196 T/CUMM (130-400); Red Cell Distribution Width 15.2 % (9.3-17.3)
[2018-10-30] MEDS: PIPERACILLIN/TAZOBACTAM 3,375 MG in SODIUM CHLORIDE 0.9% 100 ML IV SCH ×3 (05:27→20:21)
[2018-10-30] MEDS: INSULIN REGULAR 100 UNIT/ML SUBCUT SCH ×3 (05:27→17:41)
[2018-10-30 05:30] LABS: Calcium 9.3 MG/DL (8.5-10.1); Osmolality,Calculated 305.6 MOS/KG (273-304)
[2018-10-30 05:32] LABS: Albumin 2.2 G/DL (3.4-5.0); Bilirubin,Total 0.4 MG/DL (0.2-1.0); Osmolality,Calculated 303.6 MOS/KG (273-304); Total Protein 6.1 G/DL (6.4-8.3)
[2018-10-30 06:13] LABS: Lymphocytes 2 % (20-55); Platelet Estimate Adequate; Segmented Neutrophils 98 % (50-85); Total Cells Counted 100
[2018-10-30] MEDS: ASCORBIC ACID 500 MG TABLET PO SCH ×2 (09:27→20:22)
[2018-10-30] MEDS: FLUCONAZOLE 40 MG/ML 35 ML/BOTTLE PO SCH (09:27)
[2018-10-30] MEDS: LOSARTAN 25 MG TABLET PO SCH (09:27)
[2018-10-30] MEDS: CARVEDILOL 3.125 MG TABLET PO SCH ×2 (09:27→17:41)
[2018-10-30] MEDS: DESITIN 4OZ/NYSTATIN 15 GRAM MIXTURE PASTE TOP SCH ×2 (09:27→20:32)
[2018-10-30] MEDS: SIMVASTATIN 10 MG TABLET PO SCH (09:27)
[2018-10-30] MEDS: amLODIPine 10 MG TABLET PO SCH (09:27)
[2018-10-30] MEDS: ASPIRIN CHEW 81 MG TABLET PO SCH (09:27)
[2018-10-30] MEDS: methylPREDNISolone SOD SUC 40 MG/1 ML VIAL IV SCH ×2 (09:27→15:31)
[2018-10-30] MEDS: VANCOMYCIN INJ 1,000 MG in SODIUM CHLORIDE 0.9% 250 ML IV SCH ×2 (11:42→23:30)
[2018-10-30] MEDS: SKIN HEALING OINT (AQUAPHOR) 50 GM TUBE TOP PRN (11:42)
[2018-10-31] MEDS: methylPREDNISolone SOD SUC 40 MG/1 ML VIAL IV SCH ×3 (00:11→15:05)
[2018-10-31] MEDS: INSULIN REGULAR 100 UNIT/ML SUBCUT SCH ×4 (00:13→18:23)
[2018-10-31] MEDS: FAMOTIDINE 20 MG/2 ML VIAL IV SCH ×2 (03:30→15:05)
[2018-10-31] MEDS: ENOXAPARIN 40 MG/0.4 ML SYRINGE SUBCUT SCH (03:32)
[2018-10-31] MEDS: hydrALAZINE 20 MG/1 ML VIAL IV PRN (04:18)
[2018-10-31 05:08] LABS: Basophils % 0.1 % (0.0-0.8); Hemoglobin 9.2 GM/DL (12.0-16.0); Immature Granulocytes Absolute 0.14 #; Lymphocytes # 0.5 10*3/uL (1.4-4.0); Lymphocytes % 3.5 % (21.3-54.2); Mean Corpuscular HGB Conc 30.7 GM/DL (32-36); Mean Corpuscular Volume 96.8 FL (87-102); Mean Platelet Volume 8.7 FL (9.6-12.0); Monocytes % 3.3 % (1.7-12.7); Neutrophils % 92.1 % (38.7-73.9); Platelet Count 202 T/CUMM (130-400); Red Cell Distribution Width 15.4 % (9.3-17.3); White Blood Count 13.8 T/CUMM (4-12)
[2018-10-31 05:24] LABS: Calcium 8.9 MG/DL (8.5-10.1); Osmolality,Calculated 306.3 MOS/KG (273-304)
[2018-10-31 05:27] LABS: Albumin 2.5 G/DL (3.4-5.0); Bilirubin,Total 0.6 MG/DL (0.2-1.0); Calcium 9.2 MG/DL (8.5-10.1); Osmolality,Calculated 306.3 MOS/KG (273-304); Total Protein 6.2 G/DL (6.4-8.3)
[2018-10-31] MEDS: fentaNYL 100 MCG/2 ML VIAL IV PRN (05:35)
[2018-10-31 05:43] LABS: Anisocytosis 1+; Lymphocytes 3 % (20-55); Metamyelocytes 1 %; Segmented Neutrophils 93 % (50-85); Total Cells Counted 100
[2018-10-31 05:44] LABS: Platelet Estimate Adequate
[2018-10-31] MEDS: PIPERACILLIN/TAZOBACTAM 3,375 MG in SODIUM CHLORIDE 0.9% 100 ML IV SCH ×3 (06:23→21:25)
[2018-10-31] MEDS: ASPIRIN CHEW 81 MG TABLET PO SCH (08:41)
[2018-10-31] MEDS: CARVEDILOL 3.125 MG TABLET PO SCH ×2 (08:41→18:21)
[2018-10-31] MEDS: LOSARTAN 25 MG TABLET PO SCH (08:41)
[2018-10-31] MEDS: DESITIN 4OZ/NYSTATIN 15 GRAM MIXTURE PASTE TOP SCH ×2 (08:42→20:45)
[2018-10-31] MEDS: SIMVASTATIN 10 MG TABLET PO SCH (08:42)
[2018-10-31] MEDS: SKIN HEALING OINT (AQUAPHOR) 50 GM TUBE TOP PRN (08:42)
[2018-10-31] MEDS: FLUCONAZOLE 40 MG/ML 35 ML/BOTTLE PO SCH (08:42)
[2018-10-31] MEDS: amLODIPine 10 MG TABLET PO SCH (08:42)
[2018-10-31] MEDS: ASCORBIC ACID 500 MG TABLET PO SCH ×2 (08:42→20:45)
[2018-10-31] MEDS: VANCOMYCIN INJ 1,000 MG in SODIUM CHLORIDE 0.9% 250 ML IV SCH (18:22)
[2018-10-31] MEDS: POTASSIUM CHLORIDE 20 MEQ/15 ML UDCUP PER TUBE PRN ×2 (18:22→20:45)
[2018-11-01] MEDS: INSULIN REGULAR 100 UNIT/ML SUBCUT SCH ×5 (00:34→18:41)
[2018-11-01] MEDS: methylPREDNISolone SOD SUC 40 MG/1 ML VIAL IV SCH ×3 (00:34→15:40)
[2018-11-01] MEDS: ENOXAPARIN 40 MG/0.4 ML SYRINGE SUBCUT SCH (03:57)
[2018-11-01] MEDS: FAMOTIDINE 20 MG/2 ML VIAL IV SCH ×2 (03:58→15:34)
[2018-11-01 05:00] LABS: Basophils % 0.1 % (0.0-0.8); Hematocrit 28.6 VOL% (35.7-47.0); Hemoglobin 8.7 GM/DL (12.0-16.0); Immature Granulocytes Absolute 0.12 #; Lymphocytes # 0.4 10*3/uL (1.4-4.0); Lymphocytes % 2.8 % (21.3-54.2); Mean Corpuscular HGB Conc 30.4 GM/DL (32-36); Mean Corpuscular Volume 97.3 FL (87-102); Mean Platelet Volume 9.1 FL (9.6-12.0); Neutrophils % 93.1 % (38.7-73.9); Platelet Count 155 T/CUMM (130-400); Red Blood Count 2.94 MC/CUMM (3.8-5.5); Red Cell Distribution Width 15.5 % (9.3-17.3); White Blood Count 12.5 T/CUMM (4-12)
[2018-11-01 05:27] LABS: Calcium 9.2 MG/DL (8.5-10.1)
[2018-11-01 05:31] LABS: Anisocytosis 1+; Band Neutrophils 1 % (0-10); Lymphocytes 2 % (20-55); Microcytosis 1+; Segmented Neutrophils 97 % (50-85); Total Cells Counted 100
[2018-11-01 05:32] LABS: Platelet Estimate Normal
[2018-11-01 05:35] LABS: Prealbumin 28.3 MG/DL (20-40)
[2018-11-01] MEDS: PIPERACILLIN/TAZOBACTAM 3,375 MG in SODIUM CHLORIDE 0.9% 100 ML IV SCH ×2 (06:10→13:03)
[2018-11-01] MEDS: ASCORBIC ACID 500 MG TABLET PO SCH ×2 (09:25→21:33)
[2018-11-01] MEDS: amLODIPine 10 MG TABLET PO SCH (09:25)
[2018-11-01] MEDS: SIMVASTATIN 10 MG TABLET PO SCH (09:26)
[2018-11-01] MEDS: CARVEDILOL 3.125 MG TABLET PO SCH ×2 (09:26→17:04)
[2018-11-01] MEDS: LOSARTAN 25 MG TABLET PO SCH (09:26)
[2018-11-01] MEDS: ASPIRIN CHEW 81 MG TABLET PO SCH (09:27)
[2018-11-01] MEDS: DESITIN 4OZ/NYSTATIN 15 GRAM MIXTURE PASTE TOP SCH ×2 (09:27→21:33)
[2018-11-01] MEDS: VANCOMYCIN INJ 1,000 MG in SODIUM CHLORIDE 0.9% 250 ML IV SCH (11:48)
[2018-11-01] MEDS: FLUCONAZOLE 40 MG/ML 35 ML/BOTTLE PO SCH (11:49)
[2018-11-02] MEDS: methylPREDNISolone SOD SUC 40 MG/1 ML VIAL IV SCH ×4 (00:21→23:37)
[2018-11-02] MEDS: INSULIN REGULAR 100 UNIT/ML SUBCUT SCH ×5 (00:23→23:36)
[2018-11-02] MEDS: ENOXAPARIN 40 MG/0.4 ML SYRINGE SUBCUT SCH (03:40)
[2018-11-02] MEDS: FAMOTIDINE 20 MG/2 ML VIAL IV SCH ×2 (03:41→14:46)
[2018-11-02 04:49] LABS: Hematocrit 29.7 VOL% (35.7-47.0); Hemoglobin 9.3 GM/DL (12.0-16.0); Immature Granulocytes % 0.9 %; Immature Granulocytes Absolute 0.12 #; Lymphocytes # 0.4 10*3/uL (1.4-4.0); Mean Corpuscular HGB Conc 31.3 GM/DL (32-36); Mean Corpuscular Volume 96.4 FL (87-102); Mean Platelet Volume 9.1 FL (9.6-12.0); Neutrophils % 93.1 % (38.7-73.9); Platelet Count 154 T/CUMM (130-400); Red Blood Count 3.08 MC/CUMM (3.8-5.5); Red Cell Distribution Width 15.4 % (9.3-17.3); White Blood Count 12.8 T/CUMM (4-12)
[2018-11-02 05:15] LABS: Calcium 9.1 MG/DL (8.5-10.1)
[2018-11-02 05:30] LABS: Hypochromasia 1+; Lymphocytes 4 % (20-55); Microcytosis Slight; Platelet Estimate Adequate; Segmented Neutrophils 93 % (50-85); Total Cells Counted 100
[2018-11-02] MEDS: VANCOMYCIN INJ 1,000 MG in SODIUM CHLORIDE 0.9% 250 ML IV SCH (05:41)
[2018-11-02] MEDS: ASCORBIC ACID 500 MG TABLET PO SCH ×2 (09:07→21:15)
[2018-11-02] MEDS: SIMVASTATIN 10 MG TABLET PO SCH (09:07)
[2018-11-02] MEDS: amLODIPine 10 MG TABLET PO SCH (09:07)
[2018-11-02] MEDS: LOSARTAN 25 MG TABLET PO SCH (09:07)
[2018-11-02] MEDS: CARVEDILOL 3.125 MG TABLET PO SCH ×2 (09:07→17:21)
[2018-11-02] MEDS: FLUCONAZOLE 40 MG/ML 35 ML/BOTTLE PO SCH (09:07)
[2018-11-02] MEDS: ASPIRIN CHEW 81 MG TABLET PO SCH (09:07)
[2018-11-02] MEDS: DESITIN 4OZ/NYSTATIN 15 GRAM MIXTURE PASTE TOP SCH ×2 (09:08→21:15)
[2018-11-03] MEDS: FAMOTIDINE 20 MG/2 ML VIAL IV SCH ×2 (03:31→14:59)
[2018-11-03] MEDS: ENOXAPARIN 40 MG/0.4 ML SYRINGE SUBCUT SCH (03:32)
[2018-11-03 05:02] LABS: Basophils % 0.1 % (0.0-0.8); Hematocrit 30.4 VOL% (35.7-47.0); Hemoglobin 9.2 GM/DL (12.0-16.0); Immature Granulocytes % 1.1 %; Immature Granulocytes Absolute 0.13 #; Lymphocytes # 0.3 10*3/uL (1.4-4.0); Lymphocytes % 2.6 % (21.3-54.2); Mean Corpuscular HGB Conc 30.3 GM/DL (32-36); Mean Corpuscular Volume 97.1 FL (87-102); Mean Platelet Volume 8.8 FL (9.6-12.0); Monocytes % 3.6 % (1.7-12.7); Neutrophils % 92.6 % (38.7-73.9); Platelet Count 149 T/CUMM (130-400); Red Blood Count 3.13 MC/CUMM (3.8-5.5); Red Cell Distribution Width 15.1 % (9.3-17.3); White Blood Count 11.8 T/CUMM (4-12)
[2018-11-03 05:24] LABS: Osmolality,Calculated 313.9 MOS/KG (273-304)
[2018-11-03 05:50] LABS: Lymphocytes 3 % (20-55); Segmented Neutrophils 93 % (50-85); Total Cells Counted 100
[2018-11-03 05:51] LABS: Hypochromasia 1+; Microcytosis Slight; Platelet Estimate Normal
[2018-11-03] MEDS: INSULIN REGULAR 100 UNIT/ML SUBCUT SCH ×3 (06:55→17:52)
[2018-11-03] MEDS: LOSARTAN 25 MG TABLET PO SCH (08:53)
[2018-11-03] MEDS: amLODIPine 10 MG TABLET PO SCH (08:54)
[2018-11-03] MEDS: DESITIN 4OZ/NYSTATIN 15 GRAM MIXTURE PASTE TOP SCH ×2 (08:54→20:29)
[2018-11-03] MEDS: CARVEDILOL 3.125 MG TABLET PO SCH (08:54)
[2018-11-03] MEDS: ASCORBIC ACID 500 MG TABLET PO SCH ×2 (08:54→20:29)
[2018-11-03] MEDS: FLUCONAZOLE 40 MG/ML 35 ML/BOTTLE PO SCH (08:55)
[2018-11-03] MEDS: ASPIRIN CHEW 81 MG TABLET PO SCH (08:55)
[2018-11-03] MEDS: methylPREDNISolone SOD SUC 40 MG/1 ML VIAL IV SCH ×2 (08:56→12:02)
[2018-11-03] MEDS ORDERED: GLUCAGON 1 MG VIAL IM PRN (11:34)
[2018-11-03] MEDS ORDERED: DEXTROSE 50% 25 GM/50 ML VIAL IV PRN (11:34)
[2018-11-03] MEDS: LOSARTAN 50 MG TABLET PO SCH (12:01)
[2018-11-03] MEDS: CARVEDILOL 6.25 MG TABLET PO SCH ×2 (12:01→17:19)
[2018-11-03] MEDS: SKIN HEALING OINT (AQUAPHOR) 50 GM TUBE TOP PRN (17:55)
[2018-11-03] MEDS: SIMVASTATIN 10 MG TABLET PO SCH (20:29)
[2018-11-04] MEDS: methylPREDNISolone SOD SUC 40 MG/1 ML VIAL IV SCH ×2 (00:10→11:47)
[2018-11-04] MEDS: INSULIN REGULAR 100 UNIT/ML SUBCUT SCH ×5 (00:11→23:45)
[2018-11-04] MEDS: FAMOTIDINE 20 MG/2 ML VIAL IV SCH ×2 (03:21→15:24)
[2018-11-04] MEDS: ENOXAPARIN 40 MG/0.4 ML SYRINGE SUBCUT SCH (03:22)
[2018-11-04 04:46] LABS: Basophils % 0.1 % (0.0-0.8); Hematocrit 28.9 VOL% (35.7-47.0); Hemoglobin 8.8 GM/DL (12.0-16.0); Immature Granulocytes Absolute 0.13 #; Lymphocytes # 0.4 10*3/uL (1.4-4.0); Lymphocytes % 2.8 % (21.3-54.2); Mean Corpuscular HGB Conc 30.4 GM/DL (32-36); Mean Corpuscular Volume 96.7 FL (87-102); Mean Platelet Volume 8.8 FL (9.6-12.0); Monocytes % 4.9 % (1.7-12.7); Neutrophils % 91.2 % (38.7-73.9); Platelet Count 145 T/CUMM (130-400); Red Blood Count 2.99 MC/CUMM (3.8-5.5); Red Cell Distribution Width 14.6 % (9.3-17.3); White Blood Count 12.7 T/CUMM (4-12)
[2018-11-04 05:10] LABS: Lymphocytes 3 % (20-55); Segmented Neutrophils 93 % (50-85); Total Cells Counted 100
[2018-11-04 05:11] LABS: Anisocytosis 1+
[2018-11-04 05:12] LABS: Microcytosis 1+; Ovalocytes Slight; Polychromasia Slight
[2018-11-04 05:13] LABS: Platelet Estimate Adequate
[2018-11-04 05:16] LABS: Calcium 8.9 MG/DL (8.5-10.1); Osmolality,Calculated 312.9 MOS/KG (273-304)
[2018-11-04 05:18] LABS: Albumin 2.1 G/DL (3.4-5.0); Bilirubin,Total 0.4 MG/DL (0.2-1.0); Osmolality,Calculated 314.7 MOS/KG (273-304); Total Protein 5.5 G/DL (6.4-8.3)
[2018-11-04 05:19] LABS: Calcium 8.9 MG/DL (8.5-10.1); Osmolality,Calculated 309.1 MOS/KG (273-304)
[2018-11-04] MEDS: LOSARTAN 50 MG TABLET PO SCH (08:52)
[2018-11-04] MEDS: amLODIPine 10 MG TABLET PO SCH (08:52)
[2018-11-04] MEDS: CARVEDILOL 6.25 MG TABLET PO SCH ×2 (08:53→18:07)
[2018-11-04] MEDS: ASPIRIN CHEW 81 MG TABLET PO SCH (08:53)
[2018-11-04] MEDS: ASCORBIC ACID 500 MG TABLET PO SCH ×2 (08:53→21:56)
[2018-11-04] MEDS: DESITIN 4OZ/NYSTATIN 15 GRAM MIXTURE PASTE TOP SCH ×2 (08:53→21:57)
[2018-11-04] MEDS: SIMVASTATIN 10 MG TABLET PO SCH (21:56)
[2018-11-05] MEDS: FAMOTIDINE 20 MG/2 ML VIAL IV SCH ×2 (04:42→15:28)
[2018-11-05] MEDS: ENOXAPARIN 40 MG/0.4 ML SYRINGE SUBCUT SCH (04:42)
[2018-11-05 05:32] LABS: Basophils % 0.1 % (0.0-0.8); Hematocrit 33.4 VOL% (35.7-47.0); Hemoglobin 10.1 GM/DL (12.0-16.0); Immature Granulocytes Absolute 0.14 #; Lymphocytes # 0.7 10*3/uL (1.4-4.0); Mean Corpuscular HGB Conc 30.2 GM/DL (32-36); Mean Corpuscular Volume 97.9 FL (87-102); Mean Platelet Volume 8.7 FL (9.6-12.0); Monocytes % 9.7 % (1.7-12.7); Neutrophils % 84.2 % (38.7-73.9); Platelet Count 164 T/CUMM (130-400); Red Blood Count 3.41 MC/CUMM (3.8-5.5); Red Cell Distribution Width 14.6 % (9.3-17.3)
[2018-11-05 05:43] LABS: Calcium 9.1 MG/DL (8.5-10.1); Osmolality,Calculated 311.9 MOS/KG (273-304)
[2018-11-05] MEDS: INSULIN REGULAR 100 UNIT/ML SUBCUT SCH ×3 (05:52→17:25)
[2018-11-05] MEDS: ASCORBIC ACID 500 MG TABLET PO SCH ×2 (09:13→21:02)
[2018-11-05] MEDS: methylPREDNISolone SOD SUC 40 MG/1 ML VIAL IV SCH (09:13)
[2018-11-05] MEDS: ASPIRIN CHEW 81 MG TABLET PO SCH (09:14)
[2018-11-05] MEDS: LOSARTAN 50 MG TABLET PO SCH (09:14)
[2018-11-05] MEDS: DESITIN 4OZ/NYSTATIN 15 GRAM MIXTURE PASTE TOP SCH ×2 (09:14→21:02)
[2018-11-05] MEDS: CARVEDILOL 6.25 MG TABLET PO SCH ×2 (09:14→17:25)
[2018-11-05] MEDS: amLODIPine 10 MG TABLET PO SCH (09:14)
[2018-11-05] MEDS: ACETAMINOPHEN 325 MG/10.15 ML UDCUP PO PRN ×2 (09:22→17:25)
[2018-11-05] MEDS ORDERED: TUBERCULIN SKIN TEST 0.1 ML SYRINGE INTRADERM ONE (09:51)
[2018-11-05] MEDS ORDERED: BISACODYL 10 MG SUPP RECTAL PRN (11:28)
[2018-11-05] MEDS: SIMVASTATIN 10 MG TABLET PO SCH (21:02)
[2018-11-06] MEDS: INSULIN REGULAR 100 UNIT/ML SUBCUT SCH ×4 (00:21→17:40)
[2018-11-06] MEDS: FAMOTIDINE 20 MG/2 ML VIAL IV SCH ×2 (03:52→14:47)
[2018-11-06] MEDS: ENOXAPARIN 40 MG/0.4 ML SYRINGE SUBCUT SCH (03:55)
[2018-11-06] MEDS: DESITIN 4OZ/NYSTATIN 15 GRAM MIXTURE PASTE TOP SCH ×2 (10:07→21:39)
[2018-11-06] MEDS: ASCORBIC ACID 500 MG TABLET PO SCH ×2 (10:07→21:39)
[2018-11-06] MEDS: LOSARTAN 50 MG TABLET PO SCH (10:07)
[2018-11-06] MEDS: CARVEDILOL 6.25 MG TABLET PO SCH ×2 (10:07→16:36)
[2018-11-06] MEDS: amLODIPine 10 MG TABLET PO SCH (10:07)
[2018-11-06] MEDS: ASPIRIN CHEW 81 MG TABLET PO SCH (10:07)
[2018-11-06] MEDS: methylPREDNISolone SOD SUC 40 MG/1 ML VIAL IV SCH (10:08)
[2018-11-06] MEDS ORDERED: MAGNESIUM HYDROXIDE SUSP 30 ML UDCUP PO ONE (13:19)
[2018-11-06] MEDS ORDERED: BISACODYL 10 MG SUPP RECTAL ONE (13:19)
[2018-11-06] MEDS: SODIUM CHLORIDE 0.9% 1,000 ML IV SCH (15:42)
[2018-11-06] MEDS: SIMVASTATIN 10 MG TABLET PO SCH (21:39)
[2018-11-07] MEDS: SODIUM CHLORIDE 0.9% 1,000 ML IV SCH ×3 (00:38→17:45)
[2018-11-07] MEDS: INSULIN REGULAR 100 UNIT/ML SUBCUT SCH ×4 (00:39→19:07)
[2018-11-07] MEDS: FAMOTIDINE 20 MG/2 ML VIAL IV SCH ×2 (02:47→15:08)
[2018-11-07] MEDS: ENOXAPARIN 40 MG/0.4 ML SYRINGE SUBCUT SCH (02:47)
[2018-11-07] MEDS: ASCORBIC ACID 500 MG TABLET PO SCH ×2 (09:51→21:21)
[2018-11-07] MEDS: LOSARTAN 50 MG TABLET PO SCH (09:51)
[2018-11-07] MEDS: ASPIRIN CHEW 81 MG TABLET PO SCH (09:52)
[2018-11-07] MEDS: methylPREDNISolone SOD SUC 40 MG/1 ML VIAL IV SCH (09:52)
[2018-11-07] MEDS: amLODIPine 10 MG TABLET PO SCH (09:52)
[2018-11-07] MEDS: CARVEDILOL 6.25 MG TABLET PO SCH ×2 (09:52→16:04)
[2018-11-07] MEDS: DESITIN 4OZ/NYSTATIN 15 GRAM MIXTURE PASTE TOP SCH ×2 (09:53→21:21)
[2018-11-07] MEDS: ACETAMINOPHEN 325 MG/10.15 ML UDCUP PO PRN (16:03)
[2018-11-07] MEDS: SIMVASTATIN 10 MG TABLET PO SCH (21:21)
[2018-11-08] MEDS: INSULIN REGULAR 100 UNIT/ML SUBCUT SCH ×5 (00:51→23:35)
[2018-11-08] MEDS: FAMOTIDINE 20 MG/2 ML VIAL IV SCH ×2 (03:33→16:41)
[2018-11-08] MEDS: ENOXAPARIN 40 MG/0.4 ML SYRINGE SUBCUT SCH (03:34)
[2018-11-08 04:50] LABS: Basophils % 0.1 % (0.0-0.8); Eosinophils % 0.2 % (0.00-10.9); Hematocrit 29.5 VOL% (35.7-47.0); Hemoglobin 8.9 GM/DL (12.0-16.0); Immature Granulocytes % 1.1 %; Immature Granulocytes Absolute 0.11 #; Lymphocytes # 0.6 10*3/uL (1.4-4.0); Lymphocytes % 5.9 % (21.3-54.2); Mean Corpuscular HGB Conc 30.2 GM/DL (32-36); Mean Corpuscular Volume 97.4 FL (87-102); Mean Platelet Volume 8.8 FL (9.6-12.0); Monocytes % 7.9 % (1.7-12.7); Neutrophils % 84.8 % (38.7-73.9); Platelet Count 173 T/CUMM (130-400); Red Blood Count 3.03 MC/CUMM (3.8-5.5); White Blood Count 9.8 T/CUMM (4-12)
[2018-11-08 05:11] LABS: Calcium 8.6 MG/DL (8.5-10.1); Osmolality,Calculated 299.4 MOS/KG (273-304); Prealbumin 28.2 MG/DL (20-40)
[2018-11-08] MEDS: ACETAMINOPHEN 325 MG/10.15 ML UDCUP PO PRN ×2 (07:51→15:21)
[2018-11-08] MEDS: CARVEDILOL 6.25 MG TABLET PO SCH ×2 (09:55→17:12)
[2018-11-08] MEDS: LOSARTAN 50 MG TABLET PO SCH (09:55)
[2018-11-08] MEDS: ASPIRIN CHEW 81 MG TABLET PO SCH (09:56)
[2018-11-08] MEDS: amLODIPine 10 MG TABLET PO SCH (09:56)
[2018-11-08] MEDS: DESITIN 4OZ/NYSTATIN 15 GRAM MIXTURE PASTE TOP SCH ×2 (09:56→21:56)
[2018-11-08] MEDS: ASCORBIC ACID 500 MG TABLET PO SCH ×2 (09:56→21:56)
[2018-11-08] MEDS: methylPREDNISolone SOD SUC 40 MG/1 ML VIAL IV SCH (10:05)
[2018-11-08] MEDS: SODIUM CHLORIDE 0.9% 1,000 ML IV SCH (16:42)
[2018-11-08] MEDS: SIMVASTATIN 10 MG TABLET PO SCH (21:56)
[2018-11-09] MEDS: ENOXAPARIN 40 MG/0.4 ML SYRINGE SUBCUT SCH (03:33)
[2018-11-09] MEDS: FAMOTIDINE 20 MG/2 ML VIAL IV SCH (03:34)
[2018-11-09] MEDS: INSULIN REGULAR 100 UNIT/ML SUBCUT SCH ×2 (07:18→11:09)
[2018-11-09] MEDS: methylPREDNISolone SOD SUC 40 MG/1 ML VIAL IV SCH (08:24)
[2018-11-09] MEDS: SODIUM CHLORIDE 0.9% 1,000 ML IV SCH (08:25)
[2018-11-09] MEDS: LOSARTAN 50 MG TABLET PO SCH (09:45)
[2018-11-09] MEDS: ASCORBIC ACID 500 MG TABLET PO SCH (09:45)
[2018-11-09] MEDS: amLODIPine 10 MG TABLET PO SCH (09:45)
[2018-11-09] MEDS: CARVEDILOL 6.25 MG TABLET PO SCH (09:45)
[2018-11-09] MEDS: DESITIN 4OZ/NYSTATIN 15 GRAM MIXTURE PASTE TOP SCH (09:45)
[2018-11-09] MEDS: ASPIRIN CHEW 81 MG TABLET PO SCH (09:45)
[2018-11-09 11:11] VITALS: BP 119/53
[2018-11-10] MEDS ORDERED: MULTIVITAMIN LIQUID (CENTRUM) 60 ML BOTTLE PER TUBE SCH (09:00)
== END 2018-11-09 15:35 | disposition home or self-care (01) | DRG 207 ==
LOC: EDBD → EDUNIT# → N.ED 19:06 → N.EDINP 23:33 → N.ICU 10-25 00:49 → N.5E 10-31 16:50
PROVIDERS: ADMIT Family Medicine; ATTEND Family Medicine
PROC: IRTHORA (2018-10-28 13:15)

== ENCOUNTER 2018-11-14 15:30 | Inpatient (IN) ==
[2018-11-14 16:26] LABS: Eosinophils # 0.1 10*3/uL (0.0-0.87); Eosinophils % 2.8 % (0.00-10.9); Hematocrit 24.4 VOL% (35.7-47.0); Hemoglobin 7.6 GM/DL (12.0-16.0); Immature Granulocytes % 0.5 %; Immature Granulocytes Absolute 0.02 #; Lymphocytes # 0.7 10*3/uL (1.4-4.0); Lymphocytes % 16.8 % (21.3-54.2); Mean Corpuscular HGB Conc 31.1 GM/DL (32-36); Mean Corpuscular Volume 96.4 FL (87-102); Monocytes % 8.7 % (1.7-12.7); Neutrophils % 71.2 % (38.7-73.9); Platelet Count 105 T/CUMM (130-400); Red Blood Count 2.53 MC/CUMM (3.8-5.5); Red Cell Distribution Width 15.4 % (9.3-17.3); White Blood Count 3.9 T/CUMM (4-12)
[2018-11-14] MEDS ORDERED: FUROSEMIDE 40 MG/4 ML VIAL IV STA (16:38)
[2018-11-14 16:39] LABS: Albumin 2.1 G/DL (3.4-5.0); Bilirubin,Total 0.5 MG/DL (0.2-1.0); Calcium 8.8 MG/DL (8.5-10.1); Osmolality,Calculated 278.5 MOS/KG (273-304); Total Protein 4.9 G/DL (6.4-8.3)
[2018-11-14 16:40] LABS: ABG HCO3 30.8 MMOL/L (20-26); ABG Oxygen Saturation 99.3 % (95-100); ABG PCO2 46.5 MM HG (35-48); ABG PH 7.444 (7.35-7.45); ABG TCO2 29.9 MMOL/L (23-27); Allen Test Positive
[2018-11-14 16:44] LABS: Apearance,Urine Slightly Hazy (Clear); Bacteria,Urine Occasional /HPF (Few); Bilirubin,Urine Negative (Negative); Blood, Urine Negative (Negative); Glucose,Urine (UA) Negative (Negative); Ketones,Urine Negative (Negative); Mucus,Urine Occasional /LPF (Occasional); Nitrite,Urine Negative (Negative); Protein,Urine Negative; RBC,Urine 9 /HPF (0-4); Squamous Epithelial Cell,Urine Occasional /HPF (0-10); Urine Color Yellow (Yellow); Urine Urobilinogen < 2.0 EU/DL (0.2-1.0); WBC,Urine 90 /HPF (0-6)
[2018-11-14] MEDS ORDERED: MEROPENEM 1,000 MG in SODIUM CHLORIDE 0.9% 100 ML IV STA ×2 (16:50→16:54)
[2018-11-14] MEDS ORDERED: MORPHINE 4 MG/1 ML VIAL IV PRN (17:17)
[2018-11-14] MEDS ORDERED: ONDANSETRON 4 MG/2 ML VIAL IV PRN (17:17)
[2018-11-14] MEDS ORDERED: POLYETHYLENE GLYCOL POWDER 17 GM PACK PEG PRN (17:24)
[2018-11-14] MEDS ORDERED: GLYCOPYRROLATE 1 MG TABLET PEG PRN (17:24)
[2018-11-14] MEDS: FAMOTIDINE 20 MG/2 ML VIAL IV SCH (18:23)
[2018-11-14] MEDS ORDERED: SODIUM CHLORIDE 0.9% 1,000 ML IV PRN (18:44)
[2018-11-14] MEDS ORDERED: POTASSIUM CHLORIDE RIDER 10 MEQ in PREMIX 1 EACH IV PRN (18:46)
[2018-11-14] MEDS ORDERED: FUROSEMIDE 40 MG/4 ML VIAL IV PRN (18:47)
[2018-11-14] MEDS ORDERED: MAGNESIUM SULF RIDER 2 GM in PREMIX 1 EACH IV PRN (18:49)
[2018-11-14] MEDS ORDERED: MAGNESIUM SULF RIDER 4 GM in PREMIX 1 EACH IV PRN (18:49)
[2018-11-14] MEDS ORDERED: ACETAMINOPHEN 325 MG TABLET PO PRN (20:42)
[2018-11-14] MEDS ORDERED: DOCUSATE SODIUM 100 MG CAPSULE PO SCH (21:00)
[2018-11-14] MEDS: ENOXAPARIN 40 MG/0.4 ML SYRINGE SUBCUT SCH (21:17)
[2018-11-14] MEDS: ZINC OXIDE PASTE 113 GM TUBE TOP SCH (21:18)
[2018-11-14] MEDS: DOCUSATE SODIUM 100 MG/10 ML UDCUP PEG SCH (21:18)
[2018-11-14] MEDS: SUCRALFATE 1 GM TABLET PEG SCH (21:18)
[2018-11-14] MEDS: DONEPEZIL 5 MG TABLET PEG SCH (21:18)
[2018-11-14] MEDS: MAGNESIUM OXIDE 400 MG TABLET PEG SCH (21:18)
[2018-11-14] MEDS: DESITIN 4OZ/NYSTATIN 15 GRAM MIXTURE PASTE TOP SCH (21:23)
[2018-11-14] MEDS: ALBUTEROL/IPRATROPIUM 3 ML NEB RESP TX SCH (23:12)
[2018-11-15] MEDS: FAMOTIDINE 20 MG/2 ML VIAL IV SCH ×2 (04:50→18:02)
[2018-11-15 04:56] LABS: Basophils % 0.2 % (0.0-0.8); Eosinophils # 0.1 10*3/uL (0.0-0.87); Eosinophils % 2.5 % (0.00-10.9); Hematocrit 40.7 VOL% (35.7-47.0); Hemoglobin 13.2 GM/DL (12.0-16.0); Immature Granulocytes % 0.4 %; Immature Granulocytes Absolute 0.02 #; Lymphocytes # 0.7 10*3/uL (1.4-4.0); Lymphocytes % 16.3 % (21.3-54.2); Mean Corpuscular HGB Conc 32.4 GM/DL (32-36); Mean Corpuscular Volume 91.9 FL (87-102); Mean Platelet Volume 9.3 FL (9.6-12.0); Monocytes % 7.8 % (1.7-12.7); Neutrophils % 72.8 % (38.7-73.9); Platelet Count 88 T/CUMM (130-400); Red Blood Count 4.43 MC/CUMM (3.8-5.5); Red Cell Distribution Width 15.8 % (9.3-17.3); White Blood Count 4.5 T/CUMM (4-12)
[2018-11-15] MEDS: MEROPENEM 1,000 MG in SODIUM CHLORIDE 0.9% 100 ML IV SCH ×2 (05:08→18:02)
[2018-11-15 05:18] LABS: Hypochromasia 1+; Ovalocytes Slight; Platelet Estimate Decreased
[2018-11-15 05:24] LABS: Calcium 9.4 MG/DL (8.5-10.1); Osmolality,Calculated 277.5 MOS/KG (273-304); Risk Ratio 3.54; VLDL CHOLESTEROL 28.8 MG/DL
[2018-11-15] MEDS: POTASSIUM CHLORIDE 20 MEQ/15 ML UDCUP PER TUBE PRN ×2 (07:02→09:10)
[2018-11-15] MEDS: ALBUTEROL/IPRATROPIUM 3 ML NEB RESP TX SCH ×2 (07:55→16:00)
[2018-11-15] MEDS: FLUTICASONE 50 MCG NASAL SPRAY 16 GM BOTTLE BOTH NARES SCH (09:10)
[2018-11-15] MEDS: CYANOCOBALAMIN 500 MCG TABLET PEG SCH (09:10)
[2018-11-15] MEDS: DOCUSATE SODIUM 100 MG/10 ML UDCUP PEG SCH ×2 (09:10→21:42)
[2018-11-15] MEDS: LORATADINE 10 MG TABLET PEG SCH (09:10)
[2018-11-15] MEDS: ACETAMINOPHEN 500 MG TABLET PEG SCH (09:11)
[2018-11-15] MEDS: SIMVASTATIN 10 MG TABLET PEG SCH (09:11)
[2018-11-15] MEDS: SUCRALFATE 1 GM TABLET PEG SCH ×2 (09:11→21:42)
[2018-11-15] MEDS: ZINC OXIDE PASTE 113 GM TUBE TOP SCH ×2 (09:11→21:42)
[2018-11-15] MEDS: CLOPIDOGREL 75 MG TABLET PEG SCH (09:12)
[2018-11-15] MEDS: DESITIN 4OZ/NYSTATIN 15 GRAM MIXTURE PASTE TOP SCH ×2 (13:35→21:42)
[2018-11-15] MEDS ORDERED: GLUCAGON 1 MG VIAL IM PRN (16:12)
[2018-11-15] MEDS ORDERED: DEXTROSE 50% 25 GM/50 ML VIAL IV PRN (16:12)
[2018-11-15] MEDS: DONEPEZIL 5 MG TABLET PEG SCH (21:42)
[2018-11-15] MEDS: ENOXAPARIN 40 MG/0.4 ML SYRINGE SUBCUT SCH (21:42)
[2018-11-15] MEDS: MAGNESIUM OXIDE 400 MG TABLET PEG SCH (21:42)
[2018-11-16] MEDS: ALBUTEROL/IPRATROPIUM 3 ML NEB RESP TX SCH ×4 (00:21→23:39)
[2018-11-16 03:15] LABS: Hematocrit 36.1 VOL% (35.7-47.0); Hemoglobin 11.9 GM/DL (12.0-16.0)
[2018-11-16 03:17] LABS: Calcium 8.6 MG/DL (8.5-10.1); Osmolality,Calculated 277.7 MOS/KG (273-304); Prealbumin 16.6 MG/DL (20-40)
[2018-11-16] MEDS: FAMOTIDINE 20 MG/2 ML VIAL IV SCH ×2 (04:41→18:16)
[2018-11-16] MEDS: POTASSIUM CHLORIDE 20 MEQ/15 ML UDCUP PER TUBE PRN ×2 (04:41→06:27)
[2018-11-16] MEDS: MEROPENEM 1,000 MG in SODIUM CHLORIDE 0.9% 100 ML IV SCH ×2 (05:29→18:11)
[2018-11-16] MEDS: SIMVASTATIN 10 MG TABLET PEG SCH (09:43)
[2018-11-16] MEDS: ACETAMINOPHEN 500 MG TABLET PEG SCH (09:43)
[2018-11-16] MEDS: LORATADINE 10 MG TABLET PEG SCH (09:43)
[2018-11-16] MEDS: DOCUSATE SODIUM 100 MG/10 ML UDCUP PEG SCH ×2 (09:43→20:46)
[2018-11-16] MEDS: SUCRALFATE 1 GM TABLET PEG SCH ×2 (09:43→20:46)
[2018-11-16] MEDS: CYANOCOBALAMIN 500 MCG TABLET PEG SCH (09:43)
[2018-11-16] MEDS: CLOPIDOGREL 75 MG TABLET PEG SCH (09:43)
[2018-11-16] MEDS: FLUTICASONE 50 MCG NASAL SPRAY 16 GM BOTTLE BOTH NARES SCH (09:44)
[2018-11-16] MEDS: DESITIN 4OZ/NYSTATIN 15 GRAM MIXTURE PASTE TOP SCH ×2 (09:45→20:47)
[2018-11-16] MEDS: ZINC OXIDE PASTE 113 GM TUBE TOP SCH ×2 (09:45→20:47)
[2018-11-16 12:49] LABS: Hematocrit 33.1 VOL% (35.7-47.0); Hemoglobin 11.2 GM/DL (12.0-16.0)
[2018-11-16] MEDS ORDERED: TUBERCULIN SKIN TEST 0.1 ML SYRINGE INTRADERM ONE ×2 (15:49→19:30)
[2018-11-16] MEDS: DONEPEZIL 5 MG TABLET PEG SCH (20:46)
[2018-11-16] MEDS: MAGNESIUM OXIDE 400 MG TABLET PEG SCH (20:47)
[2018-11-17 00:54] LABS: Hematocrit 34.9 VOL% (35.7-47.0); Hemoglobin 11.2 GM/DL (12.0-16.0)
[2018-11-17] MEDS: FAMOTIDINE 20 MG/2 ML VIAL IV SCH ×2 (04:58→17:38)
[2018-11-17] MEDS: MEROPENEM 1,000 MG in SODIUM CHLORIDE 0.9% 100 ML IV SCH (05:11)
[2018-11-17] MEDS: ALBUTEROL/IPRATROPIUM 3 ML NEB RESP TX SCH ×3 (07:10→23:58)
[2018-11-17] MEDS: DOCUSATE SODIUM 100 MG/10 ML UDCUP PEG SCH ×2 (08:45→21:18)
[2018-11-17] MEDS: SUCRALFATE 1 GM TABLET PEG SCH ×2 (08:45→21:17)
[2018-11-17] MEDS: CYANOCOBALAMIN 500 MCG TABLET PEG SCH (08:46)
[2018-11-17] MEDS: LORATADINE 10 MG TABLET PEG SCH (08:46)
[2018-11-17] MEDS: DESITIN 4OZ/NYSTATIN 15 GRAM MIXTURE PASTE TOP SCH ×2 (08:46→21:18)
[2018-11-17] MEDS: FLUTICASONE 50 MCG NASAL SPRAY 16 GM BOTTLE BOTH NARES SCH (08:47)
[2018-11-17] MEDS: ZINC OXIDE PASTE 113 GM TUBE TOP SCH ×2 (08:47→21:18)
[2018-11-17] MEDS: ACETAMINOPHEN 500 MG TABLET PEG SCH (08:51)
[2018-11-17 11:54] LABS: Hematocrit 31.6 VOL% (35.7-47.0); Hemoglobin 10.3 GM/DL (12.0-16.0)
[2018-11-17] MEDS: PIPERACILLIN/TAZOBACTAM 3,375 MG in SODIUM CHLORIDE 0.9% 100 ML IV SCH (13:43)
[2018-11-17] MEDS: MAGNESIUM OXIDE 400 MG TABLET PEG SCH (21:18)
[2018-11-17] MEDS: DONEPEZIL 5 MG TABLET PEG SCH (21:18)
[2018-11-17] MEDS: SIMVASTATIN 10 MG TABLET PEG SCH (21:22)
[2018-11-18 00:56] LABS: Calcium 8.7 MG/DL (8.5-10.1); Osmolality,Calculated 282.4 MOS/KG (273-304); Prealbumin 16.4 MG/DL (20-40)
[2018-11-18] MEDS: PIPERACILLIN/TAZOBACTAM 3,375 MG in SODIUM CHLORIDE 0.9% 100 ML IV SCH ×2 (00:58→14:02)
[2018-11-18 00:59] LABS: Hematocrit 33.6 VOL% (35.7-47.0); Hemoglobin 10.5 GM/DL (12.0-16.0)
[2018-11-18] MEDS: FAMOTIDINE 20 MG/2 ML VIAL IV SCH ×2 (05:39→16:43)
[2018-11-18] MEDS: ALBUTEROL/IPRATROPIUM 3 ML NEB RESP TX SCH ×3 (07:12→23:35)
[2018-11-18] MEDS: ACETAMINOPHEN 500 MG TABLET PEG SCH (08:40)
[2018-11-18] MEDS: CYANOCOBALAMIN 500 MCG TABLET PEG SCH (08:40)
[2018-11-18] MEDS: DESITIN 4OZ/NYSTATIN 15 GRAM MIXTURE PASTE TOP SCH ×2 (08:41→21:30)
[2018-11-18] MEDS: ZINC OXIDE PASTE 113 GM TUBE TOP SCH ×2 (08:41→21:29)
[2018-11-18] MEDS: LORATADINE 10 MG TABLET PEG SCH (08:41)
[2018-11-18] MEDS: FLUTICASONE 50 MCG NASAL SPRAY 16 GM BOTTLE BOTH NARES SCH (08:41)
[2018-11-18] MEDS: DOCUSATE SODIUM 100 MG/10 ML UDCUP PEG SCH ×2 (08:41→21:29)
[2018-11-18] MEDS: SUCRALFATE 1 GM TABLET PEG SCH ×2 (08:41→21:29)
[2018-11-18] MEDS: HYDROCORTISONE 25 MG SUPP RECTAL SCH ×2 (09:00→21:33)
[2018-11-18 12:00] LABS: Hematocrit 30.9 VOL% (35.7-47.0); Hemoglobin 9.6 GM/DL (12.0-16.0)
[2018-11-18] MEDS: DONEPEZIL 5 MG TABLET PEG SCH (21:29)
[2018-11-18] MEDS: MAGNESIUM OXIDE 400 MG TABLET PEG SCH (21:29)
[2018-11-18] MEDS: SIMVASTATIN 10 MG TABLET PEG SCH (21:33)
[2018-11-19] MEDS: PIPERACILLIN/TAZOBACTAM 3,375 MG in SODIUM CHLORIDE 0.9% 100 ML IV SCH (00:53)
[2018-11-19 01:35] LABS: Hemoglobin 10.2 GM/DL (12.0-16.0)
[2018-11-19] MEDS: FAMOTIDINE 20 MG/2 ML VIAL IV SCH (05:54)
[2018-11-19] MEDS: ALBUTEROL/IPRATROPIUM 3 ML NEB RESP TX SCH ×2 (07:16→14:12)
[2018-11-19] MEDS ORDERED: MULTIVITAMIN LIQUID (CENTRUM) 60 ML BOTTLE PER TUBE SCH (09:00)
[2018-11-19] MEDS: HYDROCORTISONE 25 MG SUPP RECTAL SCH (09:39)
[2018-11-19] MEDS: DOCUSATE SODIUM 100 MG/10 ML UDCUP PEG SCH (09:39)
[2018-11-19] MEDS: LORATADINE 10 MG TABLET PEG SCH (09:40)
[2018-11-19] MEDS: ACETAMINOPHEN 500 MG TABLET PEG SCH (09:40)
[2018-11-19] MEDS: SUCRALFATE 1 GM TABLET PEG SCH (09:40)
[2018-11-19] MEDS: DESITIN 4OZ/NYSTATIN 15 GRAM MIXTURE PASTE TOP SCH (09:56)
[2018-11-19] MEDS: FLUTICASONE 50 MCG NASAL SPRAY 16 GM BOTTLE BOTH NARES SCH (09:56)
[2018-11-19] MEDS: ZINC OXIDE PASTE 113 GM TUBE TOP SCH (10:00)
[2018-11-19] MEDS: CYANOCOBALAMIN 500 MCG TABLET PEG SCH (10:00)
[2018-11-19] MEDS ORDERED: CYANOCOBALAMIN 500 MCG TABLET PO SCH (10:00)
[2018-11-19] MEDS ORDERED: CIPROFLOXACIN 500 MG TABLET PO SCH (11:30)
[2018-11-19 11:45] LABS: Hematocrit 31.1 VOL% (35.7-47.0)
[2018-11-19 12:24] VITALS: BP 147/66
== END 2018-11-19 15:00 | DRG 698 ==
LOC: EDUNIT# → N.ED 15:30 → N.EDINP 17:34 → N.CC 18:01 → N.5E 11-15 15:32
PROVIDERS: ADMIT Family Medicine; ATTEND Family Medicine

== ENCOUNTER 2018-12-09 19:00 | Inpatient (IN) ==
[2018-12-09] MEDS ORDERED: SODIUM CHLORIDE 0.9% 500 ML IV STA (19:52)
[2018-12-09 20:51] LABS: Basophils # 0.1 10*3/uL (0.0-0.2); Basophils % 0.3 % (0.0-0.8); Eosinophils # 0.1 10*3/uL (0.0-0.87); Eosinophils % 0.6 % (0.00-10.9); Hematocrit 35.1 VOL% (35.7-47.0); Immature Granulocytes % 0.8 %; Immature Granulocytes Absolute 0.15 #; Lymphocytes # 1.7 10*3/uL (1.4-4.0); Lymphocytes % 8.9 % (21.3-54.2); Mean Corpuscular HGB Conc 31.3 GM/DL (32-36); Mean Corpuscular Volume 95.1 FL (87-102); Mean Platelet Volume 8.4 FL (9.6-12.0); Monocytes % 4.9 % (1.7-12.7); Neutrophils % 84.5 % (38.7-73.9); Platelet Count 183 T/CUMM (130-400); Red Blood Count 3.69 MC/CUMM (3.8-5.5); Red Cell Distribution Width 15.6 % (9.3-17.3); White Blood Count 19.2 T/CUMM (4-12)
[2018-12-09] MEDS ORDERED: ALBUTEROL/IPRATROPIUM 3 ML NEB RESP TX STA (21:17)
[2018-12-09 21:18] LABS: Alanine Aminotransferase 20 U/L (13-56); Albumin 2.9 G/DL (3.4-5.0); Alkaline Phosphatase 86 U/L (45-117); Aspartate Amino Transferase 23 U/L (0-37); Blood Urea Nitrogen 24 MG/DL (7-18); Calcium 9.9 MG/DL (8.5-10.1); Glucose 116 MG/DL (74-106); Osmolality,Calculated 277.8 MOS/KG (273-304); Total Protein 7.8 G/DL (6.4-8.3)
[2018-12-09 21:26] LABS: PT Patient Result 10.4 SECS
[2018-12-09 22:02] LABS: Barbiturates Screen,Urine Negative (Negative); Benzodiazepines Screen,Urine Negative (Negative); Cannabinoid Screen,Urine Negative (Negative); Opiate Screen,Urine Negative (Negative); Phencyclidine Screen,Urine Negative (Negative)
[2018-12-09 22:12] LABS: Apearance,Urine Slightly Hazy (Clear); Bilirubin,Urine Negative (Negative); Blood, Urine Small mg/dL (Negative); Glucose,Urine (UA) Negative (Negative); Ketones,Urine Negative (Negative); Mucus,Urine Occasional /LPF (Occasional); Nitrite,Urine Negative (Negative); Protein,Urine 100 MG/DL; RBC,Urine 85 /HPF (0-4); Urine Color Yellow (Yellow); Urine Specific Gravity 1.012 (1.001-1.035); Urine Urobilinogen < 2.0 EU/DL (0.2-1.0); WBC,Urine 113 /HPF (0-6)
[2018-12-09] MEDS ORDERED: DOXYCYCLINE HYCLATE INJ 100 MG in SODIUM CHLORIDE 0.9% 100 ML IV STA (22:21)
[2018-12-10] MEDS ORDERED: POLYETHYLENE GLYCOL POWDER 17 GM PACK PEG PRN (00:33)
[2018-12-10] MEDS ORDERED: IBUPROFEN 100 MG/5 ML UDCUP PEG PRN (00:33)
[2018-12-10] MEDS ORDERED: ACETAMINOPHEN 325 MG TABLET PO PRN (00:33)
[2018-12-10] MEDS ORDERED: ONDANSETRON 4 MG/2 ML VIAL IV PRN (00:33)
[2018-12-10] MEDS: SODIUM CHLORIDE 0.9% 1,000 ML IV SCH ×3 (01:15→18:25)
[2018-12-10] MEDS: methylPREDNISolone SOD SUC 40 MG/1 ML VIAL IV SCH ×2 (01:42→15:41)
[2018-12-10 06:27] LABS: Basophils % 0.2 % (0.0-0.8); Eosinophils % 0.1 % (0.00-10.9); Immature Granulocytes % 0.8 %; Immature Granulocytes Absolute 0.14 #; Lymphocytes # 1.2 10*3/uL (1.4-4.0); Lymphocytes % 6.5 % (21.3-54.2); Mean Corpuscular HGB Conc 31.3 GM/DL (32-36); Monocytes % 0.9 % (1.7-12.7); Neutrophils % 91.5 % (38.7-73.9); Platelet Count 190 T/CUMM (130-400); Red Blood Count 3.37 MC/CUMM (3.8-5.5); Red Cell Distribution Width 15.8 % (9.3-17.3); White Blood Count 18.4 T/CUMM (4-12)
[2018-12-10 06:49] LABS: Hypochromasia 1+; Lymphocytes 6 % (20-55); Platelet Estimate Adequate; Segmented Neutrophils 92 % (50-85); Total Cells Counted 100
[2018-12-10 07:04] LABS: Albumin 2.9 G/DL (3.4-5.0); Bilirubin,Total 0.8 MG/DL (0.2-1.0); Calcium 9.8 MG/DL (8.5-10.1); Osmolality,Calculated 283.4 MOS/KG (273-304); Total Protein 7.4 G/DL (6.4-8.3)
[2018-12-10] MEDS: SUCRALFATE 1 GM/10 ML UDCUP PEG SCH ×2 (08:31→21:42)
[2018-12-10] MEDS: amLODIPine 5 MG TABLET PEG SCH (08:33)
[2018-12-10] MEDS: FAMOTIDINE 20 MG TABLET PEG SCH ×2 (08:33→21:41)
[2018-12-10] MEDS: CIPROFLOXACIN 250 MG TABLET PEG SCH ×2 (08:33→21:41)
[2018-12-10] MEDS: ASPIRIN CHEW 81 MG TABLET PO SCH (08:33)
[2018-12-10] MEDS: SIMVASTATIN 10 MG TABLET PEG SCH (08:33)
[2018-12-10] MEDS: CYANOCOBALAMIN 500 MCG TABLET PEG SCH (08:34)
[2018-12-10] MEDS: LORATADINE 10 MG TABLET PEG SCH (08:34)
[2018-12-10] MEDS: LANSOPRAZOLE ODT 30 MG TABLET PEG SCH (08:34)
[2018-12-10] MEDS: DOCUSATE SODIUM 100 MG/10 ML UDCUP PEG SCH ×2 (08:34→21:41)
[2018-12-10] MEDS: MULTIVITAMIN LIQUID (CENTRUM) 60 ML BOTTLE PEG SCH (08:35)
[2018-12-10] MEDS: HYDROCORTISONE 25 MG SUPP RECTAL SCH ×2 (08:35→21:43)
[2018-12-10] MEDS: GLYCOPYRROLATE 1 MG TABLET PEG SCH ×3 (08:36→21:41)
[2018-12-10] MEDS: FLUTICASONE 50 MCG NASAL SPRAY 16 GM BOTTLE BOTH NARES SCH (08:36)
[2018-12-10] MEDS: ZINC OXIDE PASTE 113 GM TUBE TOP SCH ×2 (08:36→21:43)
[2018-12-10] MEDS: ACETAMINOPHEN 325 MG TABLET PEG PRN (08:45)
[2018-12-10] MEDS ORDERED: DOCUSATE SODIUM 100 MG CAPSULE PO SCH (09:00)
[2018-12-10] MEDS ORDERED: CRANBERRY EXTRACT 500 MG PO SCH (09:00)
[2018-12-10] MEDS ORDERED: OMEPRAZOLE MAGNESIUM 40 MG PEG SCH (09:00)
[2018-12-10] MEDS: ACETAMINOPHEN 500 MG TABLET PEG SCH (09:38)
[2018-12-10] MEDS: NYSTATIN CREAM 15 GM TUBE TOP SCH ×2 (09:41→21:43)
[2018-12-10] MEDS: DOXYCYCLINE HYCLATE INJ 100 MG in SODIUM CHLORIDE 0.9% 100 ML IV SCH (15:41)
[2018-12-10 19:02] LABS: Apearance,Urine Slightly Hazy (Clear); Bacteria,Urine Occasional /HPF (Few); Bilirubin,Urine Negative (Negative); Blood, Urine Negative (Negative); Glucose,Urine (UA) Negative (Negative); Hyaline Casts,Urine 9 /LPF (0-3); Ketones,Urine Negative (Negative); Mucus,Urine Occasional /LPF (Occasional); Nitrite,Urine Negative (Negative); Protein,Urine 100 MG/DL; RBC,Urine 16 /HPF (0-4); Urine Color Amber (Yellow); Urine Urobilinogen < 2.0 EU/DL (0.2-1.0); WBC,Urine 63 /HPF (0-6)
[2018-12-10] MEDS: DONEPEZIL 5 MG TABLET PEG SCH (21:41)
[2018-12-10] MEDS: MAGNESIUM OXIDE 400 MG TABLET PEG SCH (21:41)
[2018-12-10] MEDS: POTASSIUM CHLORIDE 20 MEQ/15 ML UDCUP PEG SCH (21:42)
[2018-12-11] MEDS: methylPREDNISolone SOD SUC 40 MG/1 ML VIAL IV SCH ×2 (04:29→15:20)
[2018-12-11] MEDS: DOXYCYCLINE HYCLATE INJ 100 MG in SODIUM CHLORIDE 0.9% 100 ML IV SCH ×2 (04:29→15:20)
[2018-12-11 05:59] LABS: Calcium 9.4 MG/DL (8.5-10.1); Osmolality,Calculated 296.8 MOS/KG (273-304)
[2018-12-11] MEDS: HYDROCORTISONE 25 MG SUPP RECTAL SCH ×2 (08:38→21:42)
[2018-12-11] MEDS: ASPIRIN CHEW 81 MG TABLET PO SCH (08:38)
[2018-12-11] MEDS: LORATADINE 10 MG TABLET PEG SCH (08:38)
[2018-12-11] MEDS: DOCUSATE SODIUM 100 MG/10 ML UDCUP PEG SCH ×3 (08:38→21:52)
[2018-12-11] MEDS: CIPROFLOXACIN 250 MG TABLET PEG SCH ×2 (08:38→21:41)
[2018-12-11] MEDS: CYANOCOBALAMIN 500 MCG TABLET PEG SCH (08:38)
[2018-12-11] MEDS: SUCRALFATE 1 GM/10 ML UDCUP PEG SCH ×2 (08:39→21:42)
[2018-12-11] MEDS: ACETAMINOPHEN 500 MG TABLET PEG SCH (08:39)
[2018-12-11] MEDS: amLODIPine 5 MG TABLET PEG SCH (08:39)
[2018-12-11] MEDS: SIMVASTATIN 10 MG TABLET PEG SCH (08:39)
[2018-12-11] MEDS: SODIUM CHLORIDE 0.9% 1,000 ML IV SCH ×2 (08:39→21:39)
[2018-12-11] MEDS: LANSOPRAZOLE ODT 30 MG TABLET PEG SCH (08:40)
[2018-12-11] MEDS: MULTIVITAMIN LIQUID (CENTRUM) 60 ML BOTTLE PEG SCH (08:40)
[2018-12-11] MEDS: FAMOTIDINE 20 MG TABLET PEG SCH ×2 (08:40→21:42)
[2018-12-11] MEDS: ZINC OXIDE PASTE 113 GM TUBE TOP SCH ×2 (08:40→21:42)
[2018-12-11] MEDS: GLYCOPYRROLATE 1 MG TABLET PEG SCH ×2 (08:41→21:51)
[2018-12-11] MEDS: FLUTICASONE 50 MCG NASAL SPRAY 16 GM BOTTLE BOTH NARES SCH (09:38)
[2018-12-11] MEDS: NYSTATIN CREAM 15 GM TUBE TOP SCH ×2 (09:38→21:43)
[2018-12-11] MEDS: ALBUTEROL/IPRATROPIUM 3 ML NEB RESP TX SCH ×2 (13:43→19:22)
[2018-12-11] MEDS: traMADol 50 MG TABLET PEG SCH (21:41)
[2018-12-11] MEDS: DONEPEZIL 5 MG TABLET PEG SCH (21:41)
[2018-12-11] MEDS: MAGNESIUM OXIDE 400 MG TABLET PEG SCH (21:41)
[2018-12-11] MEDS: POTASSIUM CHLORIDE 20 MEQ/15 ML UDCUP PEG SCH (21:42)
[2018-12-11] MEDS: LORazepam 2 MG/1 ML VIAL IV PRN (23:38)
[2018-12-12] MEDS: ALBUTEROL/IPRATROPIUM 3 ML NEB RESP TX SCH ×4 (00:41→19:50)
[2018-12-12] MEDS: methylPREDNISolone SOD SUC 40 MG/1 ML VIAL IV SCH ×2 (04:46→16:18)
[2018-12-12] MEDS: DOXYCYCLINE HYCLATE INJ 100 MG in SODIUM CHLORIDE 0.9% 100 ML IV SCH ×2 (04:48→16:18)
[2018-12-12] MEDS: GLYCOPYRROLATE 1 MG TABLET PEG SCH ×2 (08:46→22:05)
[2018-12-12] MEDS: MULTIVITAMIN LIQUID (CENTRUM) 60 ML BOTTLE PEG SCH (08:46)
[2018-12-12] MEDS: LORATADINE 10 MG TABLET PEG SCH (08:47)
[2018-12-12] MEDS: CYANOCOBALAMIN 500 MCG TABLET PEG SCH (08:47)
[2018-12-12] MEDS: DOCUSATE SODIUM 100 MG/10 ML UDCUP PEG SCH ×2 (08:47→22:06)
[2018-12-12] MEDS: ACETAMINOPHEN 500 MG TABLET PEG SCH (08:47)
[2018-12-12] MEDS: SUCRALFATE 1 GM/10 ML UDCUP PEG SCH ×2 (08:47→22:05)
[2018-12-12] MEDS: HYDROCORTISONE 25 MG SUPP RECTAL SCH ×2 (08:47→22:05)
[2018-12-12] MEDS: CIPROFLOXACIN 250 MG TABLET PEG SCH ×2 (08:47→22:07)
[2018-12-12] MEDS: LANSOPRAZOLE ODT 30 MG TABLET PEG SCH (08:48)
[2018-12-12] MEDS: ASPIRIN CHEW 81 MG TABLET PO SCH (08:48)
[2018-12-12] MEDS: amLODIPine 5 MG TABLET PEG SCH (08:48)
[2018-12-12] MEDS: SIMVASTATIN 10 MG TABLET PEG SCH (08:48)
[2018-12-12] MEDS: FAMOTIDINE 20 MG TABLET PEG SCH ×2 (08:48→22:07)
[2018-12-12] MEDS: FLUTICASONE 50 MCG NASAL SPRAY 16 GM BOTTLE BOTH NARES SCH (09:23)
[2018-12-12] MEDS: NYSTATIN CREAM 15 GM TUBE TOP SCH ×2 (09:23→22:15)
[2018-12-12] MEDS: ZINC OXIDE PASTE 113 GM TUBE TOP SCH ×2 (09:23→22:07)
[2018-12-12] MEDS: SODIUM CHLORIDE 0.9% 1,000 ML IV SCH ×2 (09:39→13:07)
[2018-12-12] MEDS: POTASSIUM CHLORIDE 20 MEQ/15 ML UDCUP PEG SCH (22:06)
[2018-12-12] MEDS: MAGNESIUM OXIDE 400 MG TABLET PEG SCH (22:06)
[2018-12-12] MEDS: DONEPEZIL 5 MG TABLET PEG SCH (22:06)
[2018-12-12] MEDS: ACETAMINOPHEN 325 MG TABLET PEG PRN (22:31)
[2018-12-13] MEDS: ALBUTEROL/IPRATROPIUM 3 ML NEB RESP TX SCH ×4 (01:35→19:47)
[2018-12-13] MEDS: LORazepam 2 MG/1 ML VIAL IV PRN (02:54)
[2018-12-13] MEDS: SODIUM CHLORIDE 0.9% 1,000 ML IV SCH ×2 (02:57→13:24)
[2018-12-13] MEDS: methylPREDNISolone SOD SUC 40 MG/1 ML VIAL IV SCH ×2 (03:00→16:25)
[2018-12-13] MEDS: DOXYCYCLINE HYCLATE INJ 100 MG in SODIUM CHLORIDE 0.9% 100 ML IV SCH ×2 (03:00→16:26)
[2018-12-13 06:12] LABS: Calcium 9.1 MG/DL (8.5-10.1); Osmolality,Calculated 293.8 MOS/KG (273-304); Prealbumin 23.4 MG/DL (20-40)
[2018-12-13] MEDS: MULTIVITAMIN LIQUID (CENTRUM) 60 ML BOTTLE PEG SCH (09:08)
[2018-12-13] MEDS: GLYCOPYRROLATE 1 MG TABLET PEG SCH ×2 (09:08→21:54)
[2018-12-13] MEDS: CYANOCOBALAMIN 500 MCG TABLET PEG SCH (09:08)
[2018-12-13] MEDS: FAMOTIDINE 20 MG TABLET PEG SCH ×2 (09:09→21:56)
[2018-12-13] MEDS: HYDROCORTISONE 25 MG SUPP RECTAL SCH ×2 (09:09→21:56)
[2018-12-13] MEDS: SIMVASTATIN 10 MG TABLET PEG SCH (09:09)
[2018-12-13] MEDS: DOCUSATE SODIUM 100 MG/10 ML UDCUP PEG SCH ×2 (09:09→21:58)
[2018-12-13] MEDS: amLODIPine 5 MG TABLET PEG SCH (09:09)
[2018-12-13] MEDS: ASPIRIN CHEW 81 MG TABLET PO SCH (09:09)
[2018-12-13] MEDS: LORATADINE 10 MG TABLET PEG SCH (09:09)
[2018-12-13] MEDS: ACETAMINOPHEN 500 MG TABLET PEG SCH (09:09)
[2018-12-13] MEDS: LANSOPRAZOLE ODT 30 MG TABLET PEG SCH (09:09)
[2018-12-13] MEDS: FLUTICASONE 50 MCG NASAL SPRAY 16 GM BOTTLE BOTH NARES SCH (09:10)
[2018-12-13] MEDS: NYSTATIN CREAM 15 GM TUBE TOP SCH ×2 (09:10→21:59)
[2018-12-13] MEDS: SUCRALFATE 1 GM/10 ML UDCUP PEG SCH ×2 (09:10→21:57)
[2018-12-13] MEDS: ZINC OXIDE PASTE 113 GM TUBE TOP SCH ×2 (09:10→21:59)
[2018-12-13] MEDS ORDERED: SODIUM PHOSPHATE INJ 15 MMOL in SODIUM CHLORIDE 0.9% 250 ML IV ONE (14:00)
[2018-12-13] MEDS: ACETAMINOPHEN 325 MG TABLET PEG PRN (16:35)
[2018-12-13] MEDS: MAGNESIUM OXIDE 400 MG TABLET PEG SCH (21:55)
[2018-12-13] MEDS: traMADol 50 MG TABLET PEG SCH (21:56)
[2018-12-13] MEDS: DONEPEZIL 5 MG TABLET PEG SCH (21:56)
[2018-12-13] MEDS: SERTRALINE 25 MG TABLET PO SCH (21:57)
[2018-12-13] MEDS: POTASSIUM CHLORIDE 20 MEQ/15 ML UDCUP PEG SCH (21:57)
[2018-12-14] MEDS: ALBUTEROL/IPRATROPIUM 3 ML NEB RESP TX SCH ×4 (00:05→19:00)
[2018-12-14] MEDS: methylPREDNISolone SOD SUC 40 MG/1 ML VIAL IV SCH ×2 (04:16→16:41)
[2018-12-14] MEDS: DOXYCYCLINE HYCLATE INJ 100 MG in SODIUM CHLORIDE 0.9% 100 ML IV SCH ×2 (04:17→16:40)
[2018-12-14] MEDS: SODIUM CHLORIDE 0.9% 1,000 ML IV SCH ×2 (04:21→16:41)
[2018-12-14 05:24] LABS: Calcium 9.1 MG/DL (8.5-10.1); Osmolality,Calculated 288.1 MOS/KG (273-304)
[2018-12-14] MEDS: FAMOTIDINE 20 MG TABLET PEG SCH ×2 (10:08→20:54)
[2018-12-14] MEDS: HYDROCORTISONE 25 MG SUPP RECTAL SCH ×2 (10:08→20:56)
[2018-12-14] MEDS: DOCUSATE SODIUM 100 MG/10 ML UDCUP PEG SCH ×2 (10:08→20:53)
[2018-12-14] MEDS: SUCRALFATE 1 GM/10 ML UDCUP PEG SCH ×2 (10:08→21:57)
[2018-12-14] MEDS: CYANOCOBALAMIN 500 MCG TABLET PEG SCH (10:08)
[2018-12-14] MEDS: ACETAMINOPHEN 500 MG TABLET PEG SCH (10:09)
[2018-12-14] MEDS: GLYCOPYRROLATE 1 MG TABLET PEG SCH ×2 (10:09→20:53)
[2018-12-14] MEDS: LORATADINE 10 MG TABLET PEG SCH (10:09)
[2018-12-14] MEDS: SIMVASTATIN 10 MG TABLET PEG SCH (10:09)
[2018-12-14] MEDS: ASPIRIN CHEW 81 MG TABLET PO SCH (10:09)
[2018-12-14] MEDS: NYSTATIN CREAM 15 GM TUBE TOP SCH ×2 (10:10→20:57)
[2018-12-14] MEDS: LANSOPRAZOLE ODT 30 MG TABLET PEG SCH (10:10)
[2018-12-14] MEDS: ZINC OXIDE PASTE 113 GM TUBE TOP SCH ×2 (10:11→22:05)
[2018-12-14] MEDS: MULTIVITAMIN LIQUID (CENTRUM) 60 ML BOTTLE PEG SCH (10:11)
[2018-12-14] MEDS: FLUTICASONE 50 MCG NASAL SPRAY 16 GM BOTTLE BOTH NARES SCH (10:11)
[2018-12-14] MEDS: amLODIPine 5 MG TABLET PEG SCH (16:42)
[2018-12-14] MEDS: DONEPEZIL 5 MG TABLET PEG SCH (20:54)
[2018-12-14] MEDS: SERTRALINE 25 MG TABLET PO SCH (20:54)
[2018-12-14] MEDS: MAGNESIUM OXIDE 400 MG TABLET PEG SCH (20:54)
[2018-12-14] MEDS: POTASSIUM CHLORIDE 20 MEQ/15 ML UDCUP PEG SCH (20:55)
[2018-12-14] MEDS: ACETAMINOPHEN 325 MG TABLET PEG PRN (20:57)
[2018-12-15] MEDS: ALBUTEROL/IPRATROPIUM 3 ML NEB RESP TX SCH ×4 (00:37→19:12)
[2018-12-15] MEDS: LORazepam 2 MG/1 ML VIAL IV PRN (02:45)
[2018-12-15] MEDS: methylPREDNISolone SOD SUC 40 MG/1 ML VIAL IV SCH ×2 (04:08→10:26)
[2018-12-15] MEDS: DOXYCYCLINE HYCLATE INJ 100 MG in SODIUM CHLORIDE 0.9% 100 ML IV SCH ×2 (04:09→15:03)
[2018-12-15] MEDS ORDERED: SERTRALINE 25 MG TABLET PO ONE (09:17)
[2018-12-15] MEDS: SODIUM CHLORIDE 0.9% 1,000 ML IV SCH ×2 (09:57→17:17)
[2018-12-15] MEDS: DOCUSATE SODIUM 100 MG/10 ML UDCUP PEG SCH ×2 (09:58→20:59)
[2018-12-15] MEDS: CYANOCOBALAMIN 500 MCG TABLET PEG SCH (09:59)
[2018-12-15] MEDS: SIMVASTATIN 10 MG TABLET PEG SCH (09:59)
[2018-12-15] MEDS: GLYCOPYRROLATE 1 MG TABLET PEG SCH ×2 (09:59→20:58)
[2018-12-15] MEDS: ACETAMINOPHEN 500 MG TABLET PEG SCH (10:00)
[2018-12-15] MEDS: LORATADINE 10 MG TABLET PEG SCH (10:00)
[2018-12-15] MEDS: ASPIRIN CHEW 81 MG TABLET PO SCH (10:00)
[2018-12-15] MEDS: FAMOTIDINE 20 MG TABLET PEG SCH ×2 (10:00→20:58)
[2018-12-15] MEDS: HYDROCORTISONE 25 MG SUPP RECTAL SCH ×2 (10:01→20:58)
[2018-12-15] MEDS: amLODIPine 5 MG TABLET PEG SCH (10:01)
[2018-12-15] MEDS: SUCRALFATE 1 GM/10 ML UDCUP PEG SCH ×2 (10:02→20:59)
[2018-12-15] MEDS: FLUTICASONE 50 MCG NASAL SPRAY 16 GM BOTTLE BOTH NARES SCH (10:02)
[2018-12-15] MEDS: MULTIVITAMIN LIQUID (CENTRUM) 60 ML BOTTLE PEG SCH (10:02)
[2018-12-15] MEDS: ZINC OXIDE PASTE 113 GM TUBE TOP SCH ×2 (10:02→21:00)
[2018-12-15] MEDS: LANSOPRAZOLE ODT 30 MG TABLET PEG SCH (10:03)
[2018-12-15] MEDS: NYSTATIN CREAM 15 GM TUBE TOP SCH ×2 (10:03→21:00)
[2018-12-15] MEDS: traMADol 50 MG TABLET PEG SCH (20:57)
[2018-12-15] MEDS: SERTRALINE 25 MG TABLET PO SCH (20:58)
[2018-12-15] MEDS: DONEPEZIL 5 MG TABLET PEG SCH (20:58)
[2018-12-15] MEDS: MAGNESIUM OXIDE 400 MG TABLET PEG SCH (20:58)
[2018-12-15] MEDS: POTASSIUM CHLORIDE 20 MEQ/15 ML UDCUP PEG SCH (20:59)
[2018-12-16] MEDS: ALBUTEROL/IPRATROPIUM 3 ML NEB RESP TX SCH ×2 (00:05→07:31)
[2018-12-16] MEDS: DOXYCYCLINE HYCLATE INJ 100 MG in SODIUM CHLORIDE 0.9% 100 ML IV SCH (04:06)
[2018-12-16 06:04] LABS: Calcium 8.7 MG/DL (8.5-10.1); Osmolality,Calculated 287.1 MOS/KG (273-304); Prealbumin 25.1 MG/DL (20-40)
[2018-12-16] MEDS: ASPIRIN CHEW 81 MG TABLET PO SCH (09:16)
[2018-12-16] MEDS: amLODIPine 5 MG TABLET PEG SCH (09:16)
[2018-12-16] MEDS: CYANOCOBALAMIN 500 MCG TABLET PEG SCH (09:16)
[2018-12-16] MEDS: LANSOPRAZOLE ODT 30 MG TABLET PEG SCH (09:16)
[2018-12-16] MEDS: SIMVASTATIN 10 MG TABLET PEG SCH (09:16)
[2018-12-16] MEDS: GLYCOPYRROLATE 1 MG TABLET PEG SCH (09:16)
[2018-12-16] MEDS: FAMOTIDINE 20 MG TABLET PEG SCH (09:16)
[2018-12-16] MEDS: ACETAMINOPHEN 500 MG TABLET PEG SCH (09:16)
[2018-12-16] MEDS: SUCRALFATE 1 GM/10 ML UDCUP PEG SCH (09:17)
[2018-12-16] MEDS: DOCUSATE SODIUM 100 MG/10 ML UDCUP PEG SCH (09:17)
[2018-12-16] MEDS: HYDROCORTISONE 25 MG SUPP RECTAL SCH (09:17)
[2018-12-16] MEDS: methylPREDNISolone SOD SUC 40 MG/1 ML VIAL IV SCH (09:18)
[2018-12-16] MEDS: NYSTATIN CREAM 15 GM TUBE TOP SCH (09:19)
[2018-12-16] MEDS: LORATADINE 10 MG TABLET PEG SCH (09:28)
[2018-12-16] MEDS: SODIUM CHLORIDE 0.9% 1,000 ML IV SCH (09:55)
[2018-12-16] MEDS: MULTIVITAMIN LIQUID (CENTRUM) 60 ML BOTTLE PEG SCH (10:25)
[2018-12-16] MEDS: ZINC OXIDE PASTE 113 GM TUBE TOP SCH (10:25)
[2018-12-16] MEDS: FLUTICASONE 50 MCG NASAL SPRAY 16 GM BOTTLE BOTH NARES SCH (10:25)
[2018-12-16 11:52] VITALS: BP 123/72
[2018-12-16] MEDS ORDERED: SERTRALINE 25 MG TABLET PO SCH (21:00)
== END 2018-12-16 15:02 | DRG 699 ==
LOC: EDBD → EDUNIT# → N.ED 19:00 → N.EDINP 19:00 → N.5E 23:06
PROVIDERS: ADMIT Family Medicine; ATTEND Family Medicine

== ENCOUNTER 2019-01-18 15:01 | Inpatient (IN) ==
[2019-01-18 15:37] LABS: Basophils # 0.1 10*3/uL (0.0-0.2); Basophils % 0.3 % (0.0-0.8); Eosinophils # 0.1 10*3/uL (0.0-0.87); Eosinophils % 0.4 % (0.00-10.9); Hematocrit 39.1 VOL% (35.7-47.0); Hemoglobin 12.3 GM/DL (12.0-16.0); Immature Granulocytes % 0.7 %; Immature Granulocytes Absolute 0.14 #; Lymphocytes # 1.6 10*3/uL (1.4-4.0); Lymphocytes % 8.3 % (21.3-54.2); Mean Corpuscular HGB Conc 31.5 GM/DL (32-36); Mean Platelet Volume 8.5 FL (9.6-12.0); Monocytes % 6.2 % (1.7-12.7); Neutrophils % 84.1 % (38.7-73.9); Platelet Count 262 T/CUMM (130-400); Red Blood Count 4.16 MC/CUMM (3.8-5.5); Red Cell Distribution Width 13.9 % (9.3-17.3); White Blood Count 19.2 T/CUMM (4-12)
[2019-01-18 15:51] LABS: Alanine Aminotransferase 20 U/L (13-56); Albumin 2.8 G/DL (3.4-5.0); Alkaline Phosphatase 136 U/L (45-117); Aspartate Amino Transferase 22 U/L (0-37); Bilirubin,Total < 0.39 MG/DL (0.2-1.0); Blood Urea Nitrogen 26 MG/DL (7-18); Calcium 9.8 MG/DL (8.5-10.1); Glucose 145 MG/DL (74-106); Osmolality,Calculated 284.5 MOS/KG (273-304); Total Protein 7.6 G/DL (6.4-8.3)
[2019-01-18 15:55] LABS: Apearance,Urine Slightly Hazy (Clear); Bacteria,Urine Occasional /HPF (Few); Bilirubin,Urine Negative (Negative); Blood, Urine Negative (Negative); Glucose,Urine (UA) Negative (Negative); Ketones,Urine Negative (Negative); Mucus,Urine Occasional /LPF (Occasional); Nitrite,Urine Negative (Negative); Protein,Urine 100 MG/DL; RBC,Urine 2 /HPF (0-4); Urine Color Yellow (Yellow); Urine Specific Gravity 1.011 (1.001-1.035); Urine Urobilinogen < 2.0 EU/DL (0.2-1.0); WBC,Urine 86 /HPF (0-6)
[2019-01-18] MEDS ORDERED: ONDANSETRON 4 MG/2 ML VIAL IV PRN (17:05)
[2019-01-18] MEDS ORDERED: ACETAMINOPHEN 325 MG TABLET PO PRN (17:05)
[2019-01-18] MEDS ORDERED: ACETAMINOPHEN 325 MG TABLET PEG PRN (17:07)
[2019-01-18] MEDS ORDERED: IBUPROFEN 100 MG/5 ML UDCUP PEG PRN (17:07)
[2019-01-18] MEDS ORDERED: POLYETHYLENE GLYCOL POWDER 17 GM PACK PEG PRN (17:07)
[2019-01-18] MEDS ORDERED: ALBUTEROL/IPRATROPIUM 3 ML NEB RESP TX PRN (17:12)
[2019-01-18] MEDS ORDERED: PIPERACILLIN/TAZOBACTAM 3,375 MG in SODIUM CHLORIDE 0.9% 100 ML IV STA (17:12)
[2019-01-18] MEDS: SODIUM CHLORIDE 0.9% 1,000 ML IV SCH (17:41)
[2019-01-18] MEDS: POTASSIUM CHLORIDE 20 MEQ/15 ML UDCUP PEG SCH (21:34)
[2019-01-18] MEDS: GLYCOPYRROLATE 1 MG TABLET PEG SCH (21:34)
[2019-01-18] MEDS: HYDROCORTISONE 25 MG SUPP RECTAL SCH (21:34)
[2019-01-18] MEDS: DOCUSATE SODIUM 100 MG CAPSULE PO SCH (21:34)
[2019-01-18] MEDS: FAMOTIDINE 20 MG TABLET PEG SCH (21:35)
[2019-01-18] MEDS: traMADol 50 MG TABLET PEG SCH (21:35)
[2019-01-18] MEDS: SERTRALINE 25 MG TABLET PEG SCH (21:35)
[2019-01-18] MEDS: SUCRALFATE 1 GM TABLET PEG SCH (21:35)
[2019-01-18] MEDS: ZINC OXIDE PASTE 113 GM TUBE TOP SCH (21:35)
[2019-01-18] MEDS: DONEPEZIL 5 MG TABLET PEG SCH (21:36)
[2019-01-18] MEDS: NYSTATIN CREAM 15 GM TUBE TOP SCH (21:38)
[2019-01-19 01:39] LABS: Basophils # 0.1 10*3/uL (0.0-0.2); Basophils % 0.2 % (0.0-0.8); Eosinophils # 0.1 10*3/uL (0.0-0.87); Eosinophils % 0.3 % (0.00-10.9); Hematocrit 32.5 VOL% (35.7-47.0); Hemoglobin 10.4 GM/DL (12.0-16.0); Immature Granulocytes % 0.6 %; Immature Granulocytes Absolute 0.13 #; Lymphocytes # 1.9 10*3/uL (1.4-4.0); Lymphocytes % 9.4 % (21.3-54.2); Mean Corpuscular Volume 92.9 FL (87-102); Mean Platelet Volume 8.5 FL (9.6-12.0); Monocytes % 5.4 % (1.7-12.7); Neutrophils % 84.1 % (38.7-73.9); Platelet Count 231 T/CUMM (130-400); Red Cell Distribution Width 14.3 % (9.3-17.3); White Blood Count 20.4 T/CUMM (4-12)
[2019-01-19 01:59] LABS: Calcium 9.4 MG/DL (8.5-10.1); Osmolality,Calculated 283.4 MOS/KG (273-304)
[2019-01-19] MEDS: PIPERACILLIN/TAZOBACTAM 3,375 MG in SODIUM CHLORIDE 0.9% 100 ML IV SCH ×3 (02:39→17:34)
[2019-01-19 03:44] LABS: Band Neutrophils 1 % (0-10); Lymphocytes 9 % (20-55); Platelet Estimate Normal; Polychromasia Few; Segmented Neutrophils 89 % (50-85); Total Cells Counted 100
[2019-01-19] MEDS ORDERED: SIMVASTATIN 10 MG TABLET PEG SCH (08:00)
[2019-01-19] MEDS ORDERED: PANTOPRAZOLE 40 MG TABLET PO SCH ×2 (09:00)
[2019-01-19] MEDS: HYDROCORTISONE 25 MG SUPP RECTAL SCH ×2 (10:27→23:17)
[2019-01-19] MEDS: DOCUSATE SODIUM 100 MG CAPSULE PO SCH (10:27)
[2019-01-19] MEDS: GLYCOPYRROLATE 1 MG TABLET PEG SCH (10:27)
[2019-01-19] MEDS: SUCRALFATE 1 GM TABLET PEG SCH (10:28)
[2019-01-19] MEDS: amLODIPine 5 MG TABLET PEG SCH (10:28)
[2019-01-19] MEDS: NYSTATIN CREAM 15 GM TUBE TOP SCH ×2 (10:28→23:18)
[2019-01-19] MEDS: FAMOTIDINE 20 MG TABLET PEG SCH (10:28)
[2019-01-19] MEDS: ZINC OXIDE PASTE 113 GM TUBE TOP SCH ×2 (10:28→23:17)
[2019-01-19] MEDS: ACETAMINOPHEN 500 MG TABLET PEG SCH (10:31)
[2019-01-19] MEDS ORDERED: hydrALAZINE 20 MG/1 ML VIAL IV PRN (13:48)
[2019-01-19] MEDS: SODIUM CHLORIDE 0.9% 1,000 ML IV SCH (16:40)
[2019-01-19] MEDS ORDERED: ENOXAPARIN 60 MG/0.6 ML SYRINGE SUBCUT ONE (18:41)
[2019-01-19] MEDS ORDERED: METOPROLOL TARTRATE 5 MG/5 ML VIAL IV PRN (18:44)
[2019-01-20] MEDS: SUCRALFATE 1 GM TABLET PEG SCH ×3 (01:36→23:11)
[2019-01-20] MEDS: DONEPEZIL 5 MG TABLET PEG SCH ×2 (01:36→23:10)
[2019-01-20] MEDS: DOCUSATE SODIUM 100 MG CAPSULE PO SCH ×3 (01:36→23:11)
[2019-01-20] MEDS: METOPROLOL TARTRATE 25 MG TABLET PO SCH ×3 (01:37→23:11)
[2019-01-20] MEDS: GLYCOPYRROLATE 1 MG TABLET PEG SCH ×3 (01:37→23:10)
[2019-01-20] MEDS: SERTRALINE 25 MG TABLET PEG SCH ×2 (01:37→23:12)
[2019-01-20] MEDS: POTASSIUM CHLORIDE 20 MEQ/15 ML UDCUP PEG SCH ×2 (01:37→23:08)
[2019-01-20] MEDS: FAMOTIDINE 20 MG TABLET PEG SCH ×3 (01:37→23:11)
[2019-01-20] MEDS: PIPERACILLIN/TAZOBACTAM 3,375 MG in SODIUM CHLORIDE 0.9% 100 ML IV SCH ×3 (02:00→23:06)
[2019-01-20] MEDS: SODIUM CHLORIDE 0.9% 1,000 ML IV SCH ×3 (02:03→23:13)
[2019-01-20 06:26] LABS: Calcium 9.1 MG/DL (8.5-10.1); Osmolality,Calculated 286.1 MOS/KG (273-304); Prealbumin 16.8 MG/DL (20-40)
[2019-01-20] MEDS: amLODIPine 5 MG TABLET PEG SCH (12:38)
[2019-01-20] MEDS: ASPIRIN 325 MG TABLET PO SCH (12:39)
[2019-01-20] MEDS: NYSTATIN CREAM 15 GM TUBE TOP SCH ×2 (12:39→23:09)
[2019-01-20] MEDS: ZINC OXIDE PASTE 113 GM TUBE TOP SCH ×2 (12:39→23:10)
[2019-01-20] MEDS: HYDROCORTISONE 25 MG SUPP RECTAL SCH ×2 (12:39→23:12)
[2019-01-20] MEDS: ASCORBIC ACID 500 MG TABLET PO SCH ×2 (12:41→23:10)
[2019-01-20] MEDS: ACETAMINOPHEN 500 MG TABLET PEG SCH (12:42)
[2019-01-20] MEDS: PANTOPRAZOLE 40 MG VIAL IV SCH (16:11)
[2019-01-20] MEDS ORDERED: SIMVASTATIN 10 MG TABLET PEG SCH (21:00)
[2019-01-20] MEDS: traMADol 50 MG TABLET PEG SCH (23:12)
[2019-01-21] MEDS: PIPERACILLIN/TAZOBACTAM 3,375 MG in SODIUM CHLORIDE 0.9% 100 ML IV SCH ×2 (03:01→10:07)
[2019-01-21 06:40] LABS: Calcium 9.1 MG/DL (8.5-10.1); Osmolality,Calculated 286.3 MOS/KG (273-304)
[2019-01-21] MEDS: amLODIPine 5 MG TABLET PEG SCH (10:05)
[2019-01-21] MEDS: ACETAMINOPHEN 500 MG TABLET PEG SCH (10:05)
[2019-01-21] MEDS: HYDROCORTISONE 25 MG SUPP RECTAL SCH (10:05)
[2019-01-21] MEDS: METOPROLOL TARTRATE 25 MG TABLET PO SCH (10:05)
[2019-01-21] MEDS: GLYCOPYRROLATE 1 MG TABLET PEG SCH (10:05)
[2019-01-21] MEDS: SUCRALFATE 1 GM TABLET PEG SCH (10:06)
[2019-01-21] MEDS: PANTOPRAZOLE 40 MG VIAL IV SCH (10:06)
[2019-01-21] MEDS: ASPIRIN 325 MG TABLET PO SCH (10:06)
[2019-01-21] MEDS: ASCORBIC ACID 500 MG TABLET PO SCH (10:06)
[2019-01-21] MEDS: FAMOTIDINE 20 MG TABLET PEG SCH (10:06)
[2019-01-21] MEDS: DOCUSATE SODIUM 100 MG CAPSULE PO SCH (10:07)
[2019-01-21] MEDS: NYSTATIN CREAM 15 GM TUBE TOP SCH (10:07)
[2019-01-21] MEDS: ZINC OXIDE PASTE 113 GM TUBE TOP SCH (10:07)
[2019-01-21] MEDS ORDERED: AZTREONAM 1,000 MG in SYRINGE 1 EACH IV SCH (10:30)
[2019-01-21 12:19] VITALS: BP 142/61
[2019-01-21] MEDS: SODIUM CHLORIDE 0.9% 1,000 ML IV SCH (15:55)
== END 2019-01-21 15:55 | DRG 177 ==
LOC: EDUNIT# → EDBD → N.ED 15:01 → N.EDINP 17:05 → N.5E 17:36
PROVIDERS: ADMIT Family Medicine; ATTEND Family Medicine

== ENCOUNTER 2020-02-27 13:14 | Observation (INO) ==
[2020-02-27 15:23] LABS: Basophils % 0.2 % (0.0-0.8); Eosinophils # 0.3 10*3/uL (0.0-0.87); Eosinophils % 2.4 % (0.00-10.9); Hematocrit 43.9 VOL% (35.7-47.0); Hemoglobin 14.2 GM/DL (12.0-16.0); Immature Granulocytes % 0.7 %; Immature Granulocytes Absolute 0.09 #; Lymphocytes # 1.6 10*3/uL (1.4-4.0); Mean Corpuscular HGB Conc 32.3 GM/DL (32-36); Mean Corpuscular Volume 93.6 FL (87-102); Mean Platelet Volume 8.7 FL (9.6-12.0); Monocytes % 5.5 % (1.7-12.7); Neutrophils % 79.2 % (38.7-73.9); Platelet Count 189 T/CUMM (130-400); Red Blood Count 4.69 MC/CUMM (3.8-5.5); Red Cell Distribution Width 13.2 % (9.3-17.3); White Blood Count 13.1 T/CUMM (4-12)
[2020-02-27 15:54] LABS: Bilirubin,Urine Negative (Negative); Blood, Urine Negative (Negative); Glucose,Urine (UA) Negative (Negative); Ketones,Urine Negative (Negative); Nitrite,Urine Negative (Negative); Protein,Urine Negative; Urine Appearance CLEAR (Clear); Urine Color Colorless (Yellow); Urine Urobilinogen < 2.0 EU/DL (0.2-1.0)
[2020-02-27 15:58] LABS: Alanine Aminotransferase 19 U/L (13-56); Albumin 2.4 G/DL (3.4-5.0); Alkaline Phosphatase 102 U/L (45-117); Aspartate Amino Transferase 33 U/L (0-37); Blood Urea Nitrogen 28 MG/DL (7-18); Calcium 10.4 MG/DL (8.5-10.1); Estimated Glom Filtration Rate 62 ML/MIN; Glucose 87 MG/DL (74-106); Osmolality,Calculated 268.5 MOS/KG (273-304); Total Protein 6.9 G/DL (6.4-8.3)
[2020-02-27 16:00] LABS: Troponin I < 0.015 NG/ML (0.00-0.045)
[2020-02-27] MEDS ORDERED: AZITHROMYCIN INJ 500 MG in SODIUM CHLORIDE 0.9% 250 ML IV STA (16:08)
[2020-02-27] MEDS ORDERED: ACETAMINOPHEN 325 MG TABLET PO PRN (20:08)
[2020-02-27] MEDS ORDERED: BISACODYL 5 MG TABLET PEG PRN (20:08)
[2020-02-27] MEDS ORDERED: ALBUTEROL/IPRATROPIUM 3 ML NEB RESP TX PRN (20:08)
[2020-02-27] MEDS ORDERED: ONDANSETRON 4 MG/2 ML VIAL IV PRN (20:08)
[2020-02-27] MEDS ORDERED: DOCUSATE SODIUM 100 MG CAPSULE PO SCH (21:00)
[2020-02-27] MEDS: ACETAMINOPHEN 500 MG TABLET PEG SCH (21:44)
[2020-02-27] MEDS: DONEPEZIL 5 MG TABLET PEG SCH (21:44)
[2020-02-27] MEDS: SIMVASTATIN 10 MG TABLET PEG SCH (21:44)
[2020-02-27] MEDS: DOCUSATE SODIUM 100 MG/10 ML UDCUP PEG SCH (21:44)
[2020-02-27] MEDS: SUCRALFATE 1 GM TABLET PEG SCH (21:44)
[2020-02-27] MEDS: SODIUM CHLORIDE 0.9% 1,000 ML IV SCH (21:44)
[2020-02-27] MEDS: PIPERACILLIN/TAZOBACTAM 3,375 MG in SODIUM CHLORIDE 0.9% 100 ML IV SCH (21:45)
[2020-02-27] MEDS: NYSTATIN CREAM 15 GM TUBE TOP SCH (21:45)
[2020-02-27] MEDS: GLYCOPYRROLATE 1 MG TABLET PEG SCH (21:46)
[2020-02-28] MEDS ORDERED: INFLUENZA VIRUS VACCINE 0.5 ML SYRINGE IM ONE (02:27)
[2020-02-28] MEDS: SODIUM CHLORIDE 0.9% 1,000 ML IV SCH ×3 (04:34→21:26)
[2020-02-28] MEDS: PIPERACILLIN/TAZOBACTAM 3,375 MG in SODIUM CHLORIDE 0.9% 100 ML IV SCH ×3 (04:40→21:24)
[2020-02-28] MEDS ORDERED: PANTOPRAZOLE 40 MG TABLET PO SCH (09:00)
[2020-02-28] MEDS: POTASSIUM CHLORIDE 10 MEQ TABLET PO SCH (09:54)
[2020-02-28] MEDS: LORATADINE 10 MG TABLET PEG SCH (09:54)
[2020-02-28] MEDS: DOCUSATE SODIUM 100 MG/10 ML UDCUP PEG SCH ×2 (09:54→21:25)
[2020-02-28] MEDS: GLYCOPYRROLATE 1 MG TABLET PEG SCH ×2 (09:54→21:24)
[2020-02-28] MEDS: POLYETHYLENE GLYCOL POWDER 17 GM PACK PEG SCH (09:54)
[2020-02-28] MEDS: PANTOPRAZOLE 40 MG TABLET PO SCH (09:54)
[2020-02-28] MEDS: ASPIRIN CHEW 81 MG TABLET PO SCH (09:54)
[2020-02-28] MEDS: SUCRALFATE 1 GM TABLET PEG SCH ×2 (09:54→21:25)
[2020-02-28] MEDS: ACETAMINOPHEN 500 MG TABLET PEG SCH ×2 (09:55→21:23)
[2020-02-28 10:29] LABS: Basophils % 0.3 % (0.0-0.8); Eosinophils # 0.6 10*3/uL (0.0-0.87); Hematocrit 32.2 VOL% (35.7-47.0); Immature Granulocytes % 0.6 %; Immature Granulocytes Absolute 0.06 #; Lymphocytes # 1.8 10*3/uL (1.4-4.0); Lymphocytes % 18.1 % (21.3-54.2); Mean Corpuscular Volume 93.6 FL (87-102); Mean Platelet Volume 8.5 FL (9.6-12.0); Monocytes % 7.5 % (1.7-12.7); Neutrophils % 67.5 % (38.7-73.9); Platelet Count 224 T/CUMM (130-400); Red Cell Distribution Width 13.2 % (9.3-17.3); White Blood Count 10.1 T/CUMM (4-12)
[2020-02-28 10:30] LABS: Red Blood Count 3.44 MC/CUMM (3.8-5.5)
[2020-02-28 10:31] LABS: Hemoglobin 10.3 GM/DL (12.0-16.0)
[2020-02-28 10:42] LABS: Calcium 9.7 MG/DL (8.5-10.1)
[2020-02-28] MEDS: IPRATROPIUM 500 MCG/2.5 ML NEB RESP TX SCH ×3 (12:00→19:35)
[2020-02-28] MEDS: NON-FORMULARY MEDICATION (Dimethicone-Znox-Vit A-D-Aloe [Zinc Oxide Diaper Cream] 1-10 % C TOP SCH (12:06)
[2020-02-28 12:57] LABS: Bilirubin,Urine Negative (Negative); Blood, Urine Small mg/dL (Negative); Glucose,Urine (UA) Negative (Negative); Ketones,Urine Negative (Negative); Nitrite,Urine Negative (Negative); Protein,Urine Negative; RBC,Urine 26 /HPF (0-4); Squamous Epithelial Cell,Urine Occasional /HPF (0-10); Urine Appearance CLOUDY (Clear); Urine Color Yellow (Yellow); Urine Specific Gravity 1.023 (1.001-1.035); Urine Urobilinogen < 2.0 EU/DL (0.2-1.0); WBC,Urine 118 /HPF (0-6)
[2020-02-28] MEDS: NYSTATIN CREAM 15 GM TUBE TOP SCH ×2 (14:57→21:24)
[2020-02-28] MEDS: DONEPEZIL 5 MG TABLET PEG SCH (21:25)
[2020-02-28] MEDS: SIMVASTATIN 10 MG TABLET PEG SCH (21:25)
[2020-02-29] MEDS: PIPERACILLIN/TAZOBACTAM 3,375 MG in SODIUM CHLORIDE 0.9% 100 ML IV SCH ×3 (04:31→21:38)
[2020-02-29] MEDS: IPRATROPIUM 500 MCG/2.5 ML NEB RESP TX SCH ×2 (07:14→19:25)
[2020-02-29] MEDS: SUCRALFATE 1 GM TABLET PEG SCH ×2 (08:22→21:36)
[2020-02-29] MEDS: DOCUSATE SODIUM 100 MG/10 ML UDCUP PEG SCH ×2 (08:22→21:37)
[2020-02-29] MEDS: POTASSIUM CHLORIDE 10 MEQ TABLET PO SCH (08:22)
[2020-02-29] MEDS: PANTOPRAZOLE 40 MG TABLET PO SCH ×2 (08:22→10:47)
[2020-02-29] MEDS: ASPIRIN CHEW 81 MG TABLET PO SCH (08:22)
[2020-02-29] MEDS: POLYETHYLENE GLYCOL POWDER 17 GM PACK PEG SCH (08:22)
[2020-02-29] MEDS: LORATADINE 10 MG TABLET PEG SCH (08:22)
[2020-02-29] MEDS: ACETAMINOPHEN 500 MG TABLET PEG SCH ×2 (08:22→21:36)
[2020-02-29] MEDS: NYSTATIN CREAM 15 GM TUBE TOP SCH ×2 (08:23→21:37)
[2020-02-29] MEDS: NON-FORMULARY MEDICATION (Dimethicone-Znox-Vit A-D-Aloe [Zinc Oxide Diaper Cream] 1-10 % C TOP SCH (09:26)
[2020-02-29] MEDS: GLYCOPYRROLATE 1 MG TABLET PEG SCH ×2 (09:26→21:37)
[2020-02-29] MEDS ORDERED: FLUCONAZOLE 100 MG TABLET PO SCH (10:00)
[2020-02-29] MEDS ORDERED: OMEPRAZOLE ODT 20 MG TABLET PEG SCH (10:00)
[2020-02-29] MEDS ORDERED: INFLUENZA VIRUS VACCINE 0.5 ML SYRINGE IM ONE (18:30)
[2020-02-29] MEDS: SIMVASTATIN 10 MG TABLET PEG SCH (21:36)
[2020-02-29] MEDS: DONEPEZIL 5 MG TABLET PEG SCH (21:36)
[2020-02-29 22:23] VITALS: BP 138/53
[2020-03-01] MEDS ORDERED: POTASSIUM CHLORIDE 20 MEQ/15 ML UDCUP PEG SCH (09:00)
== END 2020-02-29 22:20 | disposition home health service (06) ==
LOC: EDBD → EDUNIT# → N.ED 13:14 → N.EDINP 13:14 → N.3E 19:14
PROVIDERS: ADMIT Family Medicine; ATTEND Family Medicine

== ENCOUNTER 2020-05-13 19:27 | Inpatient (IN) ==
[2020-05-13] MEDS ORDERED: ONDANSETRON 4 MG/2 ML VIAL IV STA (20:02)
[2020-05-13] MEDS ORDERED: methylPREDNISolone SOD SUC 125 MG/2 ML VIAL IV STA (20:02)
[2020-05-13] MEDS ORDERED: SODIUM CHLORIDE 0.9% 500 ML IV STA (20:02)
[2020-05-13] MEDS ORDERED: CLINDAMYCIN INJ 600 MG in PREMIX 1 EACH IV STA (20:39)
[2020-05-13 22:37] LABS: Basophils % 0.2 % (0.0-0.8); Eosinophils # 0.3 10*3/uL (0.0-0.87); Eosinophils % 2.4 % (0.00-10.9); Hemoglobin 11.5 GM/DL (12.0-16.0); Immature Granulocytes % 0.5 %; Immature Granulocytes Absolute 0.06 #; Lymphocytes # 1.8 10*3/uL (1.4-4.0); Lymphocytes % 15.4 % (21.3-54.2); Mean Corpuscular HGB Conc 33.8 GM/DL (32-36); Mean Corpuscular Volume 91.6 FL (87-102); Mean Platelet Volume 8.9 FL (9.6-12.0); Monocytes % 6.5 % (1.7-12.7); Platelet Count 245 T/CUMM (130-400); Red Blood Count 3.71 MC/CUMM (3.8-5.5); Red Cell Distribution Width 12.7 % (9.3-17.3); White Blood Count 11.8 T/CUMM (4-12)
[2020-05-13 22:47] LABS: INR 1.1; PT Patient Result 11.4 SECS (9.8-11.9)
[2020-05-13 22:56] LABS: Albumin 2.1 G/DL (3.4-5.0); Bilirubin,Total 0.5 MG/DL (0.2-1.0); Calcium 9.7 MG/DL (8.5-10.1); Osmolality,Calculated 264.5 MOS/KG (273-304); Potassium 3.7 MMOL/L (3.5-5.1); Total Protein 7.4 G/DL (6.4-8.3)
[2020-05-13 23:12] LABS: Bilirubin,Urine Negative (Negative); Blood, Urine Negative (Negative); Glucose,Urine (UA) Negative (Negative); Ketones,Urine 5 mg/dL (Negative); Mucus,Urine Occasional /LPF (Occasional); Nitrite,Urine Negative (Negative); Protein,Urine 30 MG/DL; Urine Appearance CLOUDY (Clear); Urine Color Yellow (Yellow); Urine Specific Gravity 1.013 (1.001-1.035); Urine Urobilinogen < 2.0 EU/DL (0.2-1.0); WBC,Urine 47 /HPF (0-6); White Blood Cell Casts,Urine 9 /LPF (<1)
[2020-05-13] MEDS ORDERED: MAGNESIUM SULF RIDER 2 GM in PREMIX 1 EACH IV STA (23:12)
[2020-05-14] MEDS ORDERED: ACETAMINOPHEN 325 MG TABLET PO PRN (01:00)
[2020-05-14] MEDS ORDERED: SODIUM PHOSPHATE ENEMA 133 ML BOTTLE RECTAL PRN (01:00)
[2020-05-14] MEDS ORDERED: ONDANSETRON 4 MG/2 ML VIAL IV PRN (01:00)
[2020-05-14] MEDS ORDERED: LACTULOSE 20 GM/30 ML UDCUP PO PRN (01:00)
[2020-05-14] MEDS ORDERED: BISACODYL 5 MG TABLET PO PRN (01:00)
[2020-05-14] MEDS ORDERED: ALBUTEROL/IPRATROPIUM 3 ML NEB RESP TX PRN (01:00)
[2020-05-14] MEDS: SODIUM CHLORIDE 0.9% 1,000 ML IV SCH ×2 (01:30→10:26)
[2020-05-14] MEDS: VANCOMYCIN INJ 1,000 MG in SODIUM CHLORIDE 0.9% 250 ML IV SCH ×2 (01:55→19:45)
[2020-05-14 06:48] LABS: Basophils % 0.2 % (0.0-0.8); Hematocrit 36.2 VOL% (35.7-47.0); Hemoglobin 11.9 GM/DL (12.0-16.0); Immature Granulocytes % 0.7 %; Immature Granulocytes Absolute 0.04 #; Lymphocytes # 0.7 10*3/uL (1.4-4.0); Lymphocytes % 13.1 % (21.3-54.2); Mean Corpuscular HGB Conc 32.9 GM/DL (32-36); Mean Platelet Volume 8.7 FL (9.6-12.0); Monocytes % 0.6 % (1.7-12.7); Neutrophils % 85.4 % (38.7-73.9); Platelet Count 233 T/CUMM (130-400); Red Blood Count 3.85 MC/CUMM (3.8-5.5); Red Cell Distribution Width 12.6 % (9.3-17.3); White Blood Count 5.4 T/CUMM (4-12)
[2020-05-14 07:07] LABS: Albumin 2.3 G/DL (3.4-5.0); Bilirubin,Total 0.4 MG/DL (0.2-1.0); Calcium 10.1 MG/DL (8.5-10.1); Osmolality,Calculated 266.7 MOS/KG (273-304); Potassium 4.8 MMOL/L (3.5-5.1)
[2020-05-14] MEDS ORDERED: LACTOBACILLUS ACIDOPHILUS/BULGARICUS CAPLET PEG SCH (09:00)
[2020-05-14] MEDS ORDERED: ACETAMINOPHEN 500 MG TABLET PEG SCH (09:00)
[2020-05-14] MEDS ORDERED: POTASSIUM CHLORIDE 10 MEQ TABLET PO SCH (09:00)
[2020-05-14] MEDS ORDERED: PANTOPRAZOLE 40 MG TABLET PO SCH (09:00)
[2020-05-14] MEDS ORDERED: DOCUSATE SODIUM 100 MG CAPSULE PO SCH (09:00)
[2020-05-14] MEDS ORDERED: LANSOPRAZOLE ODT 30 MG TABLET PEG SCH (09:00)
[2020-05-14] MEDS ORDERED: CRANBERRY EXTRACT 500 MG PO SCH (09:00)
[2020-05-14] MEDS ORDERED: NON-FORMULARY MEDICATION (Dimethicone-Znox-Vit A-D-Aloe [Zinc Oxide Diaper Cream] 1-10 % C TOP SCH (09:00)
[2020-05-14] MEDS: NITROFURANTOIN MACRO/MONO 100 MG CAPSULE PO SCH ×2 (09:59→17:30)
[2020-05-14] MEDS: ASPIRIN CHEW 81 MG TABLET PO SCH (10:00)
[2020-05-14] MEDS: LORATADINE 10 MG TABLET PEG SCH (10:02)
[2020-05-14] MEDS: MULTIVITAMIN (CENTRUM) TABLET PO SCH (10:02)
[2020-05-14] MEDS: DOCUSATE SODIUM 100 MG/10 ML UDCUP PEG SCH ×2 (10:03→21:06)
[2020-05-14] MEDS: FAMOTIDINE 20 MG TABLET PEG SCH ×2 (10:05→21:09)
[2020-05-14] MEDS: GLYCOPYRROLATE 1 MG TABLET PEG SCH ×2 (10:15→21:09)
[2020-05-14] MEDS: IPRATROPIUM 0.03% NASAL SPRAY 30 ML BOTTLE BOTH NARES SCH (10:24)
[2020-05-14] MEDS: POLYETHYLENE GLYCOL POWDER 17 GM PACK PEG SCH (10:25)
[2020-05-14] MEDS: SUCRALFATE 1 GM TABLET PEG SCH ×2 (10:25→21:08)
[2020-05-14] MEDS: CYANOCOBALAMIN 500 MCG TABLET PEG SCH (10:26)
[2020-05-14] MEDS: NYSTATIN CREAM 15 GM TUBE TOP SCH (12:46)
[2020-05-14] MEDS: OMEPRAZOLE ODT 20 MG TABLET PEG SCH (12:47)
[2020-05-14] MEDS: NYSTATIN POWDER 15 GM BOTTLE TOP SCH (12:47)
[2020-05-14] MEDS: cefTRIAXone 1,000 MG in SYRINGE 1 EACH IV SCH (17:30)
[2020-05-14] MEDS: SIMVASTATIN 10 MG TABLET PEG SCH (21:08)
[2020-05-14] MEDS: ACETAMINOPHEN 325 MG/10.15 ML UDCUP PEG SCH (21:08)
[2020-05-14] MEDS: DONEPEZIL 5 MG TABLET PEG SCH (21:09)
[2020-05-14] MEDS: MAGNESIUM OXIDE 400 MG TABLET PEG SCH (21:09)
[2020-05-15] MEDS: NYSTATIN CREAM 15 GM TUBE TOP SCH ×3 (00:30→22:32)
[2020-05-15] MEDS: IPRATROPIUM 0.03% NASAL SPRAY 30 ML BOTTLE BOTH NARES SCH ×3 (00:30→22:32)
[2020-05-15] MEDS: SODIUM CHLORIDE 0.9% 1,000 ML IV SCH ×2 (02:27)
[2020-05-15] MEDS: GLYCOPYRROLATE 1 MG TABLET PEG SCH ×2 (08:50→22:31)
[2020-05-15] MEDS: POLYETHYLENE GLYCOL POWDER 17 GM PACK PEG SCH (08:51)
[2020-05-15] MEDS: POTASSIUM CHLORIDE 20 MEQ PACK PO SCH (08:51)
[2020-05-15] MEDS: NITROFURANTOIN MACRO/MONO 100 MG CAPSULE PO SCH ×2 (08:51→17:49)
[2020-05-15] MEDS: DOCUSATE SODIUM 100 MG/10 ML UDCUP PEG SCH ×2 (08:52→22:31)
[2020-05-15] MEDS: CYANOCOBALAMIN 500 MCG TABLET PEG SCH (08:52)
[2020-05-15] MEDS: ASPIRIN CHEW 81 MG TABLET PO SCH (08:52)
[2020-05-15] MEDS: OMEPRAZOLE ODT 20 MG TABLET PEG SCH (08:52)
[2020-05-15] MEDS: SUCRALFATE 1 GM TABLET PEG SCH ×2 (08:52→22:31)
[2020-05-15] MEDS: FAMOTIDINE 20 MG TABLET PEG SCH ×2 (08:52→22:31)
[2020-05-15] MEDS: cefTRIAXone 1,000 MG in SYRINGE 1 EACH IV SCH (08:53)
[2020-05-15] MEDS: MULTIVITAMIN (CENTRUM) TABLET PO SCH (08:54)
[2020-05-15] MEDS: ACETAMINOPHEN 325 MG/10.15 ML UDCUP PEG SCH ×2 (08:54→22:32)
[2020-05-15] MEDS: LORATADINE 10 MG TABLET PEG SCH (09:05)
[2020-05-15] MEDS: LACTOBACILLUS ACIDOPHILUS/BULGARICUS 1 PACKET PEG SCH (09:05)
[2020-05-15] MEDS: NYSTATIN POWDER 15 GM BOTTLE TOP SCH (09:05)
[2020-05-15] MEDS: DONEPEZIL 5 MG TABLET PEG SCH (22:30)
[2020-05-15] MEDS: MAGNESIUM OXIDE 400 MG TABLET PEG SCH (22:31)
[2020-05-15] MEDS: SIMVASTATIN 10 MG TABLET PEG SCH (22:33)
[2020-05-16] MEDS: ACETAMINOPHEN 325 MG/10.15 ML UDCUP PEG SCH (10:19)
[2020-05-16] MEDS: LACTOBACILLUS ACIDOPHILUS/BULGARICUS 1 PACKET PEG SCH (10:20)
[2020-05-16] MEDS: POTASSIUM CHLORIDE 20 MEQ PACK PO SCH (10:20)
[2020-05-16] MEDS: GLYCOPYRROLATE 1 MG TABLET PEG SCH (10:20)
[2020-05-16] MEDS: CYANOCOBALAMIN 500 MCG TABLET PEG SCH (10:20)
[2020-05-16] MEDS: LORATADINE 10 MG TABLET PEG SCH (10:20)
[2020-05-16] MEDS: POLYETHYLENE GLYCOL POWDER 17 GM PACK PEG SCH (10:20)
[2020-05-16] MEDS: OMEPRAZOLE ODT 20 MG TABLET PEG SCH (10:21)
[2020-05-16] MEDS: FAMOTIDINE 20 MG TABLET PEG SCH (10:21)
[2020-05-16] MEDS: NITROFURANTOIN MACRO/MONO 100 MG CAPSULE PO SCH (10:21)
[2020-05-16] MEDS: MULTIVITAMIN (CENTRUM) TABLET PO SCH (10:23)
[2020-05-16] MEDS: cefTRIAXone 1,000 MG in SYRINGE 1 EACH IV SCH (10:23)
[2020-05-16] MEDS: DOCUSATE SODIUM 100 MG/10 ML UDCUP PEG SCH (10:23)
[2020-05-16] MEDS: ASPIRIN CHEW 81 MG TABLET PO SCH (10:23)
[2020-05-16] MEDS: SUCRALFATE 1 GM TABLET PEG SCH (10:23)
[2020-05-16] MEDS: NYSTATIN CREAM 15 GM TUBE TOP SCH (10:24)
[2020-05-16] MEDS: IPRATROPIUM 0.03% NASAL SPRAY 30 ML BOTTLE BOTH NARES SCH (10:24)
[2020-05-16] MEDS: NYSTATIN POWDER 15 GM BOTTLE TOP SCH (10:24)
[2020-05-16] MEDS: SODIUM CHLORIDE 0.9% 1,000 ML IV SCH (10:40)
[2020-05-16 16:02] VITALS: BP 159/60
== END 2020-05-16 17:03 | disposition home health service (06) | DRG 177 ==
LOC: EDBD → EDUNIT# → N.ED 19:27 → N.EDINP 19:27 → N.5E 05-14 09:32
PROVIDERS: ADMIT Family Medicine; ATTEND Family Medicine

== ENCOUNTER 2020-05-18 10:37 | Inpatient (IN) ==
[2020-05-18 11:42] LABS: Basophils % 0.1 % (0.0-0.8); Eosinophils # 0.1 10*3/uL (0.0-0.87); Eosinophils % 0.5 % (0.00-10.9); Hematocrit 40.6 VOL% (35.7-47.0); Hemoglobin 12.6 GM/DL (12.0-16.0); Immature Granulocytes % 0.7 %; Immature Granulocytes Absolute 0.13 #; Lymphocytes # 1.1 10*3/uL (1.4-4.0); Lymphocytes % 6.1 % (21.3-54.2); Mean Corpuscular Volume 98.1 FL (87-102); Mean Platelet Volume 8.4 FL (9.6-12.0); Monocytes % 4.1 % (1.7-12.7); Neutrophils % 88.5 % (38.7-73.9); Platelet Count 333 T/CUMM (130-400); Red Blood Count 4.14 MC/CUMM (3.8-5.5); Red Cell Distribution Width 12.9 % (9.3-17.3); White Blood Count 17.7 T/CUMM (4-12)
[2020-05-18 11:44] LABS: ABG Base Excess 0.7 MMOL/L (-2.5-2.5); ABG HCO3 24.9 MMOL/L (20-26); ABG Oxygen Saturation 93.6 % (95-100); ABG PO2 67.2 MM HG (80-95); ABG TCO2 24.6 MMOL/L (23-27)
[2020-05-18 11:49] LABS: PT Patient Result 10.8 SECS (9.8-11.9); Partial Thromboplastin Time 26.3 SECS (23.9-33.8)
[2020-05-18 11:58] LABS: Alanine Aminotransferase 14 U/L (13-56); Albumin 2.1 G/DL (3.4-5.0); Alkaline Phosphatase 97 U/L (45-117); Aspartate Amino Transferase 36 U/L (0-37); Bilirubin,Total < 0.39 MG/DL (0.2-1.0); Blood Urea Nitrogen 15 MG/DL (7-18); Calcium 9.6 MG/DL (8.5-10.1); Carbon Dioxide 30 MMOL/L (21-32); Estimated Glom Filtration Rate 72 ML/MIN; Glucose 175 MG/DL (74-106); Osmolality,Calculated 277.8 MOS/KG (273-304); Potassium 4.7 MMOL/L (3.5-5.1); Sodium 137 MMOL/L (136-145); Total Protein 7.4 G/DL (6.4-8.3)
[2020-05-18] MEDS ORDERED: SODIUM CHLORIDE 0.9% 500 ML IV STA (12:02)
[2020-05-18 12:10] LABS: Bilirubin,Urine Negative (Negative); Blood, Urine Negative (Negative); Glucose,Urine (UA) Negative (Negative); Hyaline Casts,Urine 4 /LPF (0-3); Ketones,Urine Negative (Negative); Mucus,Urine Occasional /LPF (Occasional); Nitrite,Urine Negative (Negative); Protein,Urine >=500 MG/DL; RBC,Urine 23 /HPF (0-4); Squamous Epithelial Cell,Urine Occasional /HPF (0-10); Urine Appearance CLOUDY (Clear); Urine Color Amber (Yellow); Urine Specific Gravity 1.025 (1.001-1.035); Urine Urobilinogen < 2.0 EU/DL (0.2-1.0); WBC,Urine 114 /HPF (0-6)
[2020-05-18] MEDS ORDERED: MEROPENEM 500 MG in SODIUM CHLORIDE 0.9% 100 ML IV ONE (12:43)
[2020-05-18] MEDS ORDERED: VANCOMYCIN INJ 750 MG in SODIUM CHLORIDE 0.9% 250 ML IV STA (12:43)
[2020-05-18] MEDS ORDERED: ACETAMINOPHEN 325 MG TABLET PO PRN (13:06)
[2020-05-18] MEDS ORDERED: ONDANSETRON 4 MG/2 ML VIAL IV PRN (13:06)
[2020-05-18] MEDS: SODIUM CHLORIDE 0.45% 1,000 ML IV SCH (16:06)
[2020-05-18] MEDS: ENOXAPARIN 30 MG/0.3 ML SYRINGE SUBCUT SCH ×2 (16:06→18:51)
[2020-05-19] MEDS: SODIUM CHLORIDE 0.45% 1,000 ML IV SCH (05:27)
[2020-05-19 06:25] LABS: Basophils % 0.2 % (0.0-0.8); Eosinophils # 0.1 10*3/uL (0.0-0.87); Eosinophils % 0.7 % (0.00-10.9); Hematocrit 35.2 VOL% (35.7-47.0); Hemoglobin 11.3 GM/DL (12.0-16.0); Immature Granulocytes % 0.5 %; Immature Granulocytes Absolute 0.05 #; Lymphocytes # 1.6 10*3/uL (1.4-4.0); Lymphocytes % 14.9 % (21.3-54.2); Mean Corpuscular HGB Conc 32.1 GM/DL (32-36); Mean Corpuscular Volume 96.7 FL (87-102); Mean Platelet Volume 8.7 FL (9.6-12.0); Monocytes % 6.4 % (1.7-12.7); Neutrophils % 77.3 % (38.7-73.9); Platelet Count 316 T/CUMM (130-400); Red Blood Count 3.64 MC/CUMM (3.8-5.5); White Blood Count 10.9 T/CUMM (4-12)
[2020-05-19 06:35] LABS: Calcium 9.6 MG/DL (8.5-10.1); Osmolality,Calculated 280.4 MOS/KG (273-304); Potassium 4.3 MMOL/L (3.5-5.1)
[2020-05-19] MEDS ORDERED: ALBUTEROL/IPRATROPIUM 3 ML NEB RESP TX PRN (07:57)
[2020-05-19] MEDS ORDERED: BISACODYL 5 MG TABLET PO PRN (07:57)
[2020-05-19 09:16] LABS: Troponin I 0.589 NG/ML (0.00-0.045)
[2020-05-19] MEDS: PANTOPRAZOLE 40 MG VIAL IV SCH (09:36)
[2020-05-19] MEDS ORDERED: FUROSEMIDE 40 MG/4 ML VIAL IV ONE (10:06)
[2020-05-19] MEDS: ASPIRIN CHEW 81 MG TABLET PO SCH (11:25)
[2020-05-19] MEDS: POTASSIUM CHLORIDE 10 MEQ TABLET PO SCH (11:25)
[2020-05-19] MEDS: SUCRALFATE 1 GM TABLET PEG SCH ×2 (11:25→22:27)
[2020-05-19] MEDS: LORATADINE 10 MG TABLET PEG SCH (11:26)
[2020-05-19] MEDS: LACTOBACILLUS ACIDOPHILUS/BULGARICUS CAPLET PEG SCH (11:26)
[2020-05-19] MEDS: POLYETHYLENE GLYCOL POWDER 17 GM PACK PEG SCH (11:26)
[2020-05-19] MEDS: MULTIVITAMIN (CENTRUM) TABLET PO SCH (11:26)
[2020-05-19] MEDS: DOCUSATE SODIUM 100 MG/10 ML UDCUP PEG SCH ×2 (11:26→22:27)
[2020-05-19] MEDS: NYSTATIN POWDER 15 GM BOTTLE TOP SCH (11:34)
[2020-05-19] MEDS: GLYCOPYRROLATE 1 MG TABLET PEG SCH ×2 (11:34→22:27)
[2020-05-19] MEDS ORDERED: ENOXAPARIN 40 MG/0.4 ML SYRINGE SUBCUT SCH (13:30)
[2020-05-19 14:34] LABS: Troponin I 0.477 NG/ML (0.00-0.045)
[2020-05-19] MEDS ORDERED: AMIODARONE INJ 150 MG in DEXTROSE 5% 100 ML IV ONE ×2 (16:52→20:00)
[2020-05-19] MEDS ORDERED: AMIODARONE INJ 450 MG in DEXTROSE 5% 241 ML IV SCH ×2 (17:00→21:00)
[2020-05-19 17:21] LABS: Troponin I 0.441 NG/ML (0.00-0.045)
[2020-05-19] MEDS ORDERED: SIMVASTATIN 10 MG TABLET PEG SCH (21:00)
[2020-05-19] MEDS ORDERED: MAGNESIUM OXIDE 250 MG PEG SCH (21:00)
[2020-05-19] MEDS ORDERED: DONEPEZIL 5 MG TABLET PEG SCH (21:00)
[2020-05-19] MEDS ORDERED: SODIUM CHLORIDE 0.9% 250 ML IV ONE (21:06)
[2020-05-19] MEDS: ASCORBIC ACID 500 MG TABLET PEG SCH (22:28)
[2020-05-20 00:13] VITALS: BP 91/40
[2020-05-20 03:45] LABS: ABG Base Excess -0.4 MMOL/L (-2.5-2.5); ABG HCO3 24.1 MMOL/L (20-26); ABG PCO2 57.6 MM HG (35-48); ABG PH 7.284 (7.35-7.45); ABG TCO2 24.9 MMOL/L (23-27); Allen Test Positive; Pt O2 Delivery Device Ventilator
[2020-05-20 07:56] LABS: Calcium 9.7 MG/DL (8.5-10.1); Osmolality,Calculated 285.4 MOS/KG (273-304)
[2020-05-20] MEDS ORDERED: AMIODARONE INJ 450 MG in DEXTROSE 5% 241 ML IV SCH (08:00)
[2020-05-20] MEDS: LORATADINE 10 MG TABLET PEG SCH (08:44)
[2020-05-20] MEDS: NYSTATIN POWDER 15 GM BOTTLE TOP SCH (08:44)
[2020-05-20] MEDS: MULTIVITAMIN (CENTRUM) TABLET PO SCH (08:44)
[2020-05-20] MEDS: DOCUSATE SODIUM 100 MG/10 ML UDCUP PEG SCH (08:44)
[2020-05-20] MEDS: ASPIRIN CHEW 81 MG TABLET PO SCH (08:44)
[2020-05-20] MEDS: POTASSIUM CHLORIDE 10 MEQ TABLET PO SCH (08:44)
[2020-05-20] MEDS: ASCORBIC ACID 500 MG TABLET PEG SCH (08:44)
[2020-05-20] MEDS: PANTOPRAZOLE 40 MG VIAL IV SCH (08:44)
[2020-05-20] MEDS: GLYCOPYRROLATE 1 MG TABLET PEG SCH (08:44)
[2020-05-20] MEDS: LACTOBACILLUS ACIDOPHILUS/BULGARICUS CAPLET PEG SCH (08:44)
[2020-05-20] MEDS: POLYETHYLENE GLYCOL POWDER 17 GM PACK PEG SCH (08:44)
[2020-05-20] MEDS: SUCRALFATE 1 GM TABLET PEG SCH (08:44)
[2020-05-20] MEDS ORDERED: MORPHINE 4 MG/1 ML VIAL IV PRN ×2 (10:16→11:13)
[2020-05-20] MEDS ORDERED: DIGOXIN 0.5 MG/2 ML AMP IV SCH (10:30)
== END 2020-05-20 11:45 | disposition expired | DRG 208 ==
LOC: EDBD → EDUNIT# → N.ED 10:37 → N.EDINP 13:06 → SUATTDRO 13:06 → N.TELEN 13:56 → N.ICU 05-20 02:55
PROVIDERS: ADMIT Family Medicine; ATTEND Internal Medicine